=== PATIENT | female | born 1955 | race Hispanic/Latino ===

== ENCOUNTER 2016-11-18 09:39 | Inpatient (IN) | payer MEDICARE, MEDICAID ==
[~2016-11-18] VITALS: Ht 162.6 cm; Wt 81.4 kg
[~2016-11-18 09:39] MED LIST: ANST1T PO; ASPI-973 PO; ATOR20TA65 PO; DIVA500T14 PO; ERGO2000 PO; FENO145T19 PO; INSLIS SUBQ; INSU100V7 SUBQ; METF500T PO; OXYB10TA PO; PALI156D IM; PROP20TA5 PO
[2016-11-18 09:44] VITALS: BP 140/79; PULSE 105; RESP 14; O2SAT 95
--- NOTE | 2016-11-18 09:49 | ED.REPORT ---
HPI-Psychiatric Illness Date of Service Nov 18, 2016 ED Provider: Dr. Payne Pt is a 61 y/o female w/ a hx of CVA, IDDM, HTN, schizo-affective disorder, bipolar, anxiety, depression, presenting to the ED with her mental health counselor for a mental health assessment. Her counselor at [facility], [place] , brought the patient in today with concern that the patient hasn't been keeping up with proper hygiene practices or medical compliance which is apparently typical when she decompensates psychiatrically. She was admitted psychiatrically June 22 for grave disability and decompensation. Her auto service station attendant would like her to be admitted and the patient is amenable to this plan today. She has been experiencing 2-3 episodes of diarrhea for about 3 weeks. She c/o associated lower abdominal pain which is exacerbated by urination onset today, minimal auditory hallucinations. She denies loss of appetite, dysuria, flank pain, SI, HI, visual hallucinations. Nursing Notes Stated Complaint: MENTAL HEALTH ASSESSMENT Chief Complaint: Female Abdominal Pain Nursing Notes Reviewed: Yes Allergies: Coded Allergies: Thiothixene HCl (Verified Allergy, Unknown, painful muscle spasms in jaw , 11/18/16) thiothixene (Verified Allergy, Unknown, UNKNOWN, 11/18/16) Scheduled Anastrozole (Arimidex) 1 Mg Tablet 1 MG PO DAILY Aspirin (Aspirin) 81 Mg Tablet 81 MG PO DAILY Atorvastatin Calcium (Atorvastatin Calcium) 20 Mg Tablet 20 MG PO DAILY Cholecalciferol (Vitamin D3) (Vitamin D3) 50,000 Unit Capsule 50,000 UNIT PO WEEKLY pt takes on tuesdays Divalproex ER (Divalproex ER) 500 Mg Tab.er.24h 1,000 MG PO HS Divalproex ER (Divalproex ER) 500 Mg Tab.er.24h 500 MG PO DAILY Dulaglutide (Trulicity) 0.75 Mg/0.5 Ml Pen.injctr 0.75 MG SQ WEEKLY on wednesdays Fenofibrate Nanocrystallized (Fenofibrate) 145 Mg Tablet 145 MG PO DAILY Insulin Detemir (Levemir U100 Insulin Vial) 100 Unit/1 Ml Vial 80 UNIT SUBQ QAM Metformin (Glucophage) 500 Mg Tablet 1,000 MG PO BIDWM Oxybutynin Chloride ER (Oxybutynin Chloride ER) 10 Mg Tab.er.24 10 MG PO DAILY Paliperidone Palmitate Inj (Invega Sustenna) 156 Mg/1 Ml Syringe 156 MG IM monthly last given on 10/22/16 next dose due 11/19/16 Propranolol HCl (Propranolol HCl) 10 Mg Tablet 10 MG PO BID General Time Seen by MD: 10:01 Chief Complaint Other (decompensation) Hx Obtained From: Patient, Forming Mill Operator Arrived By: Walk-in Onset Occurred: Onset unknown Symptom Duration: Since onset Progression Since Onset: Constant Location: : Abdomen Quality: Painful Radiation: Does not radiate Severity: Current: Mild Severity: Maximum: Mild Recent Healthcare: Previous diagnosis Similar Sx Previous: Yes Risk-Psychiatric Illness Suicide Risk Stratification RF Statements: Risk factors N/A Past Medical History Past Medical History slight tremor/speech alteration R/T use of neuroleptics Hx of pneumonia Schizo-affective disorder, bipolar type, w/ auditory hallucinations Hx of breast cancer in 2012 s/p bilateral mastectomies Hypertension IDDM CVA Anxiety Depression Past Surgical History Double mastectomy Thyroid biopsy, negative Bilateral mastectomy Family History Noncontributory Smoking History Current Every Day Smoker, Heavy Tobacco Smoker Social History Alcohol Use: "Social" Other Social History: Local resident Ambulatory Status Independent Review of Systems Constitutional: Denies: Chills, Fever Respiratory: Denies: Non-productive cough, Shortness of breath Cardiovascular: Denies: Chest pain, Dyspnea on exertion GI: Reports: Abdominal pain, Diarrhea, Denies: Nausea, Vomiting Psychiatric: Reports: Change mental status, Hallucinations, auditory, Denies: Agitation, Confusion, Delusional, Hallucinations, visual, Homicidal ideation, Hostile, Suicidal ideation Complete sys rev & neg: except as marked. Female: Denies: Dysuria, Flank pain Physical Exam Initial Vital Signs Vital Signs (First) Date Time Temp Pulse Resp B/P Pulse Ox O2 Delivery O2 Flow Rate FiO2 11/18/16 09:44 36.3 105 14 140/79 95 Initial VS: Reviewed, Vital signs abnormal Head / Eyes: Atraumatic, Normocephalic, PERRL ENT: Mucous membranes moist, Conjunctiva normal, No scleral icterus Neck: Supple, Full range of motion Extremities: Vascular intact, Neuro intact, No swelling, No tenderness Skin: Warm, Dry, No cyanosis General/Constitutional: Awake, Alert, No acute distress, Cooperative, Not toxic appearing Dried stool on toes Neurologic: Oriented X3, Speech NL, No motor deficits, No sensory deficits, CN II - XII intact Psychiatric: Not suicidal, Not homicidal, No hallucinations Abnormal Mood/Affect: Positive: Flat affect Abdomen: Atraumatic, Soft, Non-tender, No guarding, No rebound, No distention, No palpable mass Interpretation & Diagnostics Lab Results Interpretation Result Diagram: 11/18/16 1005 11/18/16 1005 Test 11/18/16 10:05 11/18/16 11:20 White Blood Count 7.4th/mm3 (3.8-10.1) Red Blood Count 4.85mil/mm3 (3.90-5.20) Hemoglobin 13.4g/dL (12.0-15.6) Hematocrit 40.8% (35.0-46.0) Mean Corpuscular Volume 84.1fL (81-100) Mean Corpuscular Hemoglobin 27.6pg (27.0-35.0) Mean Corpuscular Hemoglobin Concent 32.8% (32.0-37.0) Red Cell Distribution Width 13.9% (12.3-15.4) Platelet Count 230bil/L (150-400) Neutrophils (%) (Auto) 73.0% (40-74) Lymphocytes (%) (Auto) 15.2% (14-46) Monocytes (%) (Auto) 10.4% (4-12) Eosinophils (%) (Auto) 0.5% (0-5) Basophils (%) (Auto) 0.5% (0-3) Sodium Level 139mEq/L (134-144) Potassium Level 4.4mEq/L (3.5-5.2) Chloride Level 99mEq/L (97-108) Carbon Dioxide Level 21mmol/L (18-29) Blood Urea Nitrogen 11mg/dL (8-27) Creatinine 0.55mg/dL (0.57-1.00) Estimat Glomerular Filtration Rate 160mL/min (>59) Glucose Level 391mg/dL (60-99) Calcium Level 9.8mg/dL (8.5-10.1) Total Bilirubin 0.4mg/dL (0.0-1.2) Aspartate Amino Transf (AST/SGOT) 57U/L (0-50) Alanine Aminotransferase (ALT/SGPT) 49U/L (0-32) Alkaline Phosphatase 128U/L (25-165) Total Protein 7.0g/dL (6.4-8.4) Albumin 4.1g/dL (3.4-5.0) Thyroid Stimulating Hormone (TSH) 0.679uIU/mL (0.450-4.500) Hold Garsia Top Tube Received (Received) Valproic Acid (Depakene) Level 7ug/mL (50-125) Urine Color Yellow (YELLOW) Urine Appearance Hazy (CLEAR,HAZY) Urine pH 6.0 (5.0-8.0) Urine Specific [place] 1.010 (1.003-1.035) Urine Protein Negativemg/dL (NEG,TRACE) Urine Glucose (UA) 1000mg/dL (NEGATIVE) Urine Ketones Negativemg/dL (NEGATIVE) Urine Occult Blood Moderate (NEGATIVE) Urine Nitrite Negative (NEGATIVE) Urine Bilirubin Negative (NEGATIVE) Urine Urobilinogen Normalmg/dL (NORMAL) Urine Leukocyte Esterase Small (NEGATIVE) Urine RBC 0-2/hpf (0-2) Urine WBC 11-50/hpf (0-5) Urine Epithelial Cells Moderate/hpf (NONE-MOD) Urine Crystals None seen (NONE SEEN) Urine Bacteria Moderate/hpf (NONE-FEW) Urine Hyaline Casts None/lpf (NONE) Urine Granular Casts None seen (NONE SEEN) Urine Waxy Casts None seen (NONE SEEN) Urine Red Blood Cell Casts None seen (NONE SEEN) Urine White Blood Cell Casts None seen (NONE SEEN) Urine Mucus None seen (None Seen) Urine Trichomonas None seen (NONE SEEN) Urine Yeast None (NONE SEEN) Urinalysis Comment None Urine Culture Reflexed Indicated Lab Results Interpretation: Urine dip: positive leukocytes, nitrites Re-Eval/Medical Decision Med Decision/Clinical Course Patient seems to be a good candidate for voluntary admission. Incidentally she has a UTI. Her abdominal exam and blood tests are otherwise unremarkable. I do not suspect any other life-threatening pathology. She should be continued on Keflex 500 mg 4 times a day. Additionally her glucose was elevated, it seems to be downtrending after receiving subcutaneous insulin. She is medically clear. Source of Hx: Old records, Forming Mill Operator Re-Evaluation/Progress : Time of Eval: 13:19 Re-Evaluation/Progress Note: Pt rechecked. Informed pt of need for admission for psychiatric evaluation. Pt understands and agrees with plan for admission. All questions addressed. Consultation : Consulted With: limehouse worker Call Returned at: 13:19 Retail Client Manager: Will see patient, Agrees with eval, Agrees with plan Note: Arranged admission to mental health center Counseled Regarding: Diagnosis, Lab results Discharge & Departure Impression: Primary Impression: Schizoaffective disorder Schizoaffective disorder type: bipolar Qualified Code: F25.0 - Schizoaffective disorder, bipolar type Additional Impressions: UTI (urinary tract infection) Urinary tract infection type: site unspecified Hematuria presence: without hematuria Qualified Code: N39.0 - Urinary tract infection, site not specified Gravely disabled )( Condition at Discharge: No danger to self, No danger to others, No suicidal ideation, No homicidal ideation, Clear for psych facility Disposition: ADMITTED TO HOSPITAL Discharge Condition All VS Reviewed: Yes Condition: Stable Referrals: Esequiel Neely DO (PCP) Ani Attestation Portions of this note were transcribed by Pramod Novak. I, Dr. Payne, personally performed the history, physical exam and medical decision-making; I reviewed and confirmed the accuracy of the information in the transcribed note. Signed by Ani Jimenez, 11/18/16 - 1015 copies to: Esequiel Neely Timothy S DO Nov 18, 2016 09:49 PRAMOD NOVAK Nov 18, 2016 10:05
[2016-11-18 10:17] LABS: BASOPHILS % (AUTO) 0.5 % (0-3); EOSINOPHILS % (AUTO) 0.5 % (0-5); MONOCYTES % (AUTO) 10.4 % (4-12); Mean Corpuscular Hemoglobin 27.6 pg (27.0-35.0); Mean Corpuscular Volume 84.1 fL (81-100); Platelet Count 230 bil/L (150-400)
[2016-11-18] MEDS ORDERED: Insulin LISPRO 300 Unit/3 mL Inj SUBQ ONE ×2 (11:15→18:30)
[2016-11-18 12:06] LABS: APPEARANCE,URINE HAZY (CLEAR,HAZY); COLOR,URINE YELLOW (YELLOW); OCCULT BLOOD,URINE MODERATE (NEGATIVE); UROBILINOGEN,URINE NORMAL (NORMAL)
[2016-11-18] MEDS ORDERED: PALI156D IM (13:24)
[2016-11-18] MEDS ORDERED: CHOL500050 PO (13:24)
[2016-11-18] MEDS ORDERED: INSU100V4 SUBQ (13:24)
[2016-11-18] MEDS ORDERED: PROP10TA8 PO (13:24)
[2016-11-18] MEDS ORDERED: DULA0.75 SQ (13:24)
[2016-11-18 14:31] VITALS: BP 135/74; PULSE 99; RESP 14; O2SAT 96
[2016-11-18] MEDS ORDERED: metFORMIN ER 500 mg ER24 Tablet PO ONE (17:00)
--- NOTE | 2016-11-18 18:34 | NUR ---
[id number]. nurs. Admit note. 61 y.o. voluntary female pt admitted to [facility] at 1422. Pt brought to [facility] ED after pt's CM Sonja at [facility] concerned re. pt's self care at home. Family member, sister usually acts as pt's healthcare market consultant in [place] and has been unable to provide supervision of pt taking meds due to illness. ( Pt has [facility] team providing meds in AM) Pt has been refusing to open door to substitute family member, in [place] and c/o diarrhea after meals in recent weeks and not adequately attending to hygiene needs. Pt reports poor sleep pattern of 1 hour blocks when tired day and night. Pt reports BS's poorly controlled and dairy and vege meals causing diarrhea over last few weeks. Depakote level at less than therapeutic level. Pt seeking help and familiar with unit. Pt co operative with admit process, and asking to get needs met. Pt's BS 365 at dinner time pt given metformin and Dr Silva ordering coverage of 10 units of Lispro this [place].
[2016-11-18] MEDS ORDERED: Divalproex (QD) 500 mg ER24 Tablet PO ONE (21:00)
--- NOTE | 2016-11-18 21:59 | NUR ---
434 BLOOD GLUCOSE Pt's FSBS taken at 19:56 was 434. Per pt. she stated: "well I did just have coffee". Pt. given 10 units of Lispro as ordered and was told we would re-evaluate her blood sugar before HS. Diabetic education provided and pt. was discouraged from eating a non-diabetic snack before her HS FSBS. Hospitalist was also paged. However, at 21:45 when this hand sign writer went to take her FSBS she admitted she had "just had 2 hot chocolates so it'll probably be high..." Will hold reassessment of blood glucose at this time and pass on to oncoming RN.
--- NOTE | 2016-11-19 03:04 | NUR ---
Observations 1900 to 0700 Pt was in and out of her room for most of the night. Pt was polite and cooperative. Pt did attend wrap up group. Pt watched a little of the movie that was playing and then went to her room. Pt first appeared asleep at 22:30 and was observed every 15 minutes through the night as directed.
--- NOTE | 2016-11-19 05:00 | NUR ---
Nursing Noc Pt A+O pleasant and cooperative taking medications as prescribed. Blood sugars appear to be returning to normal since admission. 0430 blood sugar down to 298 from 306 at HS. Continuing to monitor mood behavior, emotional state and safety. Q15 minute visual checks throughout the shift.
[2016-11-19 09:15] VITALS: BP 131/76; PULSE 110; RESP 16
[2016-11-19] MEDS ORDERED: Tolterodine ER 4 mg ER24 Capsule PO SCH (10:45)
[2016-11-19] MEDS ORDERED: Benzocaine-Menthol Lozenge 2/Pkg PO PRN (10:50)
[2016-11-19] MEDS ORDERED: Paliperidone Palmitate 156 mg/mL Inj (NC) IM SCH (11:10)
[2016-11-19] MEDS: Divalproex (QD) 500 mg ER24 Tablet PO SCH ×2 (11:58→20:30)
[2016-11-19] MEDS: Tolterodine ER 4 mg ER24 Capsule PO SCH (12:17)
[2016-11-19] MEDS: Insulin GLARgine 100 Unit/mL Syringe SUBQ SCH (12:20)
--- NOTE | 2016-11-19 12:35 | HP ---
[address] [address] HISTORY AND PHYSICAL PATIENT: QUINTEN GUEVARA : 1955 MR#: [id number] ADMIT: 11/18/2016 JOB ID: [id number] DATE: 11/19/2016 IDENTIFICATION: Patient is a 61-year-old female currently living independently for the past 10 years. She is on Social Security and follows with [facility]. She lives in [place]. REASON FOR ADMISSION: Client brought to the ER by her mental health counselor due to concern of grave disability with poor hygiene, not taking her psychiatric medications, and beginning to have increasing psychotic symptoms of hallucinations. Her thinking is becoming poor, and she was confused about her diabetic management. HISTORY OF PRESENT ILLNESS: The patient is a 61-year-old white female with a long history of schizoaffective disorder who presented to the ER after a gradual decline and failure to take care of herself. Her Depakote level was less than 10. Hygiene was poor, and she was beginning to have auditory hallucinations. Her blood glucose was nearly 400, as she does not appear to be attending to her diabetic care. She tends to smoke over a pack of cigarettes per day. She was willing to come in on a voluntary basis at this time. She is experiencing some auditory hallucinations but reported that since starting Invega, her psychotic symptoms have been significantly improved. Client's main issue is medication noncompliance and poor care of her diabetes. The condition is chronic, and at present it is of a moderate intensity manifesting with symptoms of poor self-care, poor thought organization, and beginning to have auditory hallucinations. All the above is made worse by social isolation. It appears one of the stressors is that her sister, who is her JUSTIN worker, was sick and sent another person for a week for p.m. meds. It appears that this did not work out well. At present, she is showing no signs of emotional liability, but marked cognitive deficits and significant impairment in coping, insight and judgment. REVIEW OF SYSTEMS: Psychiatric review of systems was negative for lyssa, anxiety, trauma, or substance abuse. Physical review of systems was positive for GI complaining of diarrhea for the past three days. MEDICATIONS: 1. Propranolol 10 b.i.d. 2. Invega 156 mg IM every month, last dose October 22, 2016, next dose due November 19, 2016. 3. Oxybutynin ER 10 mg daily. 4. Metformin 1000 mg twice a day. 5. Insulin detemir 80 units subcu q.a.m. 6. Fenofibrate 140 mg daily. 7. Trulicity 0.75 mg per 0.5 mL pen, 0.75 mg subcu weekly on Wednesdays. 8. Depakote 500 mg in the morning, 1000 mg h.s. 9. Atorvastatin 20 mg daily. 10. Aspirin 81 daily. 11. Anastrazole 1 mg daily. ALLERGIES: NAVANE. ILLNESSES: CVA, insulin-dependent diabetes, breast cancer 2012, hypertension. FAMILY MEDICAL HISTORY: Noncontributory. PAST PSYCHIATRIC HISTORY: Schizoaffective disorder, multiple inpatient hospitalizations for grave disability and decompensation, last in the [facility] May to June of 2016. She is followed up by [facility]. Her imaging engineer is Sonja. PSYCHOSOCIAL HISTORY: Client states she was born in [place] and raised in [place] for the first two years before moving to [place]. She denies history of trauma. She reports that she is a heavy smoker one pack per day but denies other recreational drugs. She denied suicidal ideation, plan, or intent. RELATIONSHIP HISTORY: and twice. Three children. [employer]. Legal history none. PHYSICAL EXAM: Vital signs: 131/76, pulse 110, respirations 16, afebrile. Physical exam reviewed from ER and essentially normal. LABORATORY DATA: CBC normal. UA positive for leukocytes and nitrates. Depakote level 7. Liver, electrolytes, thyroid normal. Blood glucose 318. MENTAL STATUS EXAM: Client disheveled, malodorous with good eye contact. Behavior lethargic and withdrawn. Attitude aloof and detached. Speech with monotone one-word responses. Mood: "I'm fine." Affect flat, restricted. No lability. Thought process: Client had a difficult time relating a coherent history. Mild thought disorganization and mild distractibility. Her thought process is concrete but otherwise logical. Thought content significant for poverty of thought. She has mild auditory hallucinations. Client alert and oriented to person, place, and date. Immediate, short, and long-term memory mildly impaired. Attention and concentration moderately impaired. Insight and judgment poor. Impulse control highly contained. Reality testing mildly impaired. Competence to handle current stressors is currently being overwhelmed. IMPRESSION: Patient is a 61-year-old white female who has been struggling for decades with schizoaffective disorder. She has been stabilized since being on our unit in May on Invega and Depakote. She last got her Invega shot on October 22, 2016, but from the laboratories, she is not taking her Depakote. The combination of an antipsychotic and a mood stabilizer has helped her maintain her ability to function in the past. For unclear reasons, she has been off this medication for an unclear amount of time and has shown gradual and steady worsening of ability to attend to activities of daily living and to participate in medical care. Her blood glucose was a nearly 400, and do not believe her current regimen as able to contain her lack of an ADA diet lifestyle. DIAGNOSIS: AXIS I: Schizoaffective disorder. AXIS II: None. AXIS III: 1. Urinary tract infection. 2. History of cerebrovascular accident. 3. Insulin dependent diabetes. 4. Breast carcinoma. 5. Hypertension. PLAN: Recommend client be admitted to our unit and be provided with a high degree of safety through the structure and active adult engagement she will receive here. Will have her participate in one-to-one unit and group activities focused on improving reality-based thinking, help her be able to attend her activities of daily living, and improve coping skills. I have asked for an internal medicine consult to help with recommendations for insulin management. Will continue her on Keflex 500 mg four times a day for five days for urinary tract infection. We will restart Depakote at 500 twice a day to see how she tolerates. Will check Depakote level in five days. Will give her dose of Invega 156 mg today with a plan to continue Invega IM in 30 days. Client is a voluntary patient. Anticipate a five day stay.
[2016-11-19] MEDS: Insulin Human REGular 300 Unit/3 mL Inj SUBQ SCH ×4 (13:00→23:35)
[2016-11-19] MEDS ORDERED: PALIPERIDONE PALMITATE IM SCH (14:40)
--- NOTE | 2016-11-19 17:48 | PCM.CHPMED ---
Subjective Date of Service: Nov 19, 2016 Provider requesting consult: Alexandre Silva MD Primary Physician: Admitting Physician: Alexandre Silva MD Primary Care Physician: Esequiel Neely DO Attending Physician: Alexandre Silva MD Chief Complaint: Chief Complaint: elevated blood glucose, diarrhea History of Present Illness: 60-year-old female with a past medical history of uncontrolled diabetes, schizoaffective disorder presenting and admitted to inpatient psychiatric unit due report of gradual decline and failure to take care of herself. Hospitalist service has been consulted for further assistance with managing her her diabetes and elevated blood glucose. Currently patient's main complaint is diarrhea which she describes as intermittent 3-4 loose stools daily for the past few weeks. She also admits to having some auditory hallucinations and otherwise denies any other issues/ complaints. Review of Systems: negative except as noted above Constitutional: Denies: Chills, Fever, Malaise Head: Normal Eyes: Denies: Vision Changes ENT: Denies: Nasal Congestion, Throat Pain Neck: Denies: Pain Cardiovascular: Denies: Chest Pain, Palpitations Respiratory: Denies: Cough, Shortness of Breath Gastrointestinal: Reports: Diarrhea, Denies: Abdominal Pain, Black tarry stools, Blood in stool (red), Nausea, Vomiting Genitourinary: Denies: Dysuria, Hematuria Musculoskeletal: Denies: Back Pain, Neck Pain Neurological: Denies: Dizziness, Double Vision, Numbness, Tremors Psychologic: Reports: Other (admits to some auditory hallucinations (hearing voices)), Denies: Suicidal Thoughts Endocrine: Denies: Excessive Thirst, Weight Gain Lymphatic: Denies: Adenopathy PMH Past Medical History 1. Bipolar, 2. CVA history, 3. schizoaffective disorder/possible schizophrenia, 4. breast cancer, 5. hyperlipidemia, 6. uncontrolled diabetes, 7. hypertension 8. poor medication compliance Bedside Blood Glucose: 335 Surgical History Thyroid biopsy, bilateral mastectomy Home Medications Anastrozole 1 Mg Tablet (Arimidex) 1 Mg PO DAILY #30 TABLET Cardiovascular Drugs Atorvastatin Calcium 20 Mg Tablet 20 Mg PO DAILY Fenofibrate Nanocrystallized 145 Mg Tablet (Fenofibrate) 145 Mg PO DAILY Propranolol HCl 10 Mg Tablet 10 Mg PO BID Central Nervous System Agents Aspirin 81 Mg Tablet 81 Mg PO DAILY Divalproex ER 500 Mg Tab.Er.24h 1,000 Mg PO HS #30 Divalproex ER 500 Mg Tab.Er.24h 500 Mg PO DAILY #30 Paliperidone Palmitate Inj 156 Mg/1 Ml Syringe (Invega Sustenna) 156 Mg IM monthly last given on 10/22/16 next dose due 11/19/16 Hormones And Synthetic Substit Dulaglutide 0.75 Mg/0.5 Ml Pen.Injctr (Trulicity) 0.75 Mg SQ WEEKLY on wednesdays Insulin Detemir 100 Unit/1 Ml Vial (Levemir U100 Insulin Vial) 80 Unit SUBQ QAM Metformin 500 Mg Tablet (Glucophage) 1,000 Mg PO BIDWM #60 TABLET Smooth Muscle Relaxants Oxybutynin Chloride ER 10 Mg Tab.Er.24 10 Mg PO DAILY #30 Allergies: Coded Allergies: Thiothixene HCl (Verified Allergy, Unknown, painful muscle spasms in jaw , 11/18/16) thiothixene (Verified Allergy, Unknown, UNKNOWN, 11/18/16) Family History Family History Mother at age 58 of lung cancer, father in his 70s with an accidental overdose of narcotics Social History Hx Alcohol Use: NoHx Substance Use: YesHx Tobacco Use: Yes Smoking Status: Current Every Day Smoker (1ppd) Exam Vital Signs Vital Sign - Last Date Time Temp Pulse Resp B/P Pulse Ox O2 Delivery O2 Flow Rate FiO2 11/19/16 09:15 36.9 110 16 131/76 11/18/16 14:31 96 Room Air Intake and Output 11/18/16 11/18/16 11/19/16 Cumulative From/Thru 15:00 23:00 07:00 11/18/16 09:44 - 11/18/16 14:32 Intake Total 200 ml 200 ml Balance 200 ml 200 ml Intake Oral 200 ml 200 ml General: Alert, Oriented X3, Cooperative, No Acute Distress Head: Normal Eyes: PERRLA, EOMI, Scleral Anicteric Nose: Mucous Membr Moist/[place] Patent Mouth: Mucous Membr Moist/[place] Patent Neck: Supple Chest & Lungs: Chest Wall Normal, Clear to auscultation & percussion Cardiovascular: Regular Rate/Rhythm Pulses: NL carotid, radial, femoral, DP, PT Abdomen: Non-tender, Non-distended, Normoactive bowel tones, Soft Musculoskeletal: Normal Range of Motion Extremities: No cyanosis/clubbing/edma bilat Neurological: Grossly Neurologically Intact, Cranial Nerves 2-12 Intact, Normal Speech Lab and Diagnostics Result Diagram: 11/18/16 1005 11/18/16 1005 Assessment & Plan Assessment 60-year-old female with a past medical history of uncontrolled diabetes, schizoaffective disorder presenting and admitted to inpatient psychiatric unit due report of gradual decline and failure to take care of herself. Hospitalist service has been consulted for further assistance with managing her her diabetes and elevated blood glucose. # Psychiatric disorder. Acute on chronic. present on admission. ongoing -Defer to primary psychiatry team for further management # Type II diabetes. Chronic. poorly controlled. present on admission - She has a history of difficult to control glucose levels (partially due to diet indiscretion) - for now continue with home dose insulin (Lantus 80 units) and will likely need to titrate further up - start high dose insulin sliding scale - c/w home dose Metformin - diabetic diet - f/u HgA1C # Reported diarrhea, somewhat chronic and ongoing. present on admission per pt' s report. - check stool PCR and if negative will treat with Lomotil prn # ? UTI based on UA on admission - urine culture showing evidence of contamination - recheck UA # History of Hypertension: - c/w home dose Propranolol # Hyperlipidemia: - c/w fenofibrate and atorvastatin # History of breast cancer - c/w Arimidex Thank you for allowing the hospitalist service to participate in the care of this patient, we will continue to follow her closely with you. Problems: GI Prophylaxis: Not indicated VTE Prophylaxis: Other (pt ambulating) Resuscitation Status: Limited Interventions (pt wishes to be DNI but OK to resuscitate. I discussed and verified this with the patient) Rashad Alba Nov 19, 2016 17:48
--- NOTE | 2016-11-19 18:05 | NUR ---
Observations 0900 to 2130 Pt affect and mood was isolative, flat and preoccupied. Pt eye contact and speech was ok. Pt was in her room most of the shift. Pt ate about 75% of her meals. Pt ate snacks. Pt maintained behavior throughout the shift. Pt was polite and cooperative. Pt did not attend group and unit activities. Pt attended community and set daily goals for herself. Pt was minimally social with staff and peers. Pt was observed every 15 minutes throughout the shift as ordered.
--- NOTE | 2016-11-19 19:18 | NUR ---
[id number]. nurs. S/O. "I hope I don't have to be interrupted more times" Pt reporting wanting to rest and mostly in her room brief periods spent out enjoying meals. Pt c/o of incontinence and supplied with attends and pads changes of underwear and noted to have loose stools and be incontinent in bed. Pt's BSs remained elevated in 300's and Dr Donald monitoring and pt given coverage per sliding scale and also received 80 units of lantus. Pt with mostly flat affect, did occasionally smile and spend some time observing peers not seeking interacting freq. returning to bed to rest. P:CNCP
--- NOTE | 2016-11-20 05:16 | NUR ---
Nursing notes: specimen processor/ diabetes/ diarrhea/sleep Patient resting quietly in bed at change of shift. Patient received 7 units regular insulin for HS bedside blood sugar of 284. Patient noted to be incontinent of several small drips of liquid brown stool on floor between bed and bathroom. Assisted patient with hygiene/ linens changed. Patient sleeping until 0330, then again up to bathroom with episode of diarrhea. Patient placed stool specimen for staff in bathroom and stool specimen sent to lab. Patient also urinated in another specimen container,but appeared contaminated with fecal matter,and was disposed. Patient assisted with shower, clean scrubs, adult depends, and linens changed again. Patient states her abdomen "only hurts when I cough". Several tissues scattered about bed and night stand. Patient is polite and thankful for assistance, then returned back to bed. Addendum: 11/20/16 at 0639 by NORMAN TUCKER RN Addendum. Patient awakened for am Keflex medication. No further episodes of diarrhea. Patient c/o of stuffy nose and "cold symptoms" Patient reports frequent productive cough with clear mucus, and sore throat. VS checked.BP 113/63 Temp= 36.5 temporal Pulse= 107 Respirations = 16 and breathing thru mouth. O2 sat 94%. Bedside blood sugar = 256. Patient only noted to have water at bedside. Provider will be notified of above results this am.
[2016-11-20 06:00] VITALS: BP 113/63; PULSE 107; RESP 16
[2016-11-20] MEDS: Insulin Human REGular 300 Unit/3 mL Inj SUBQ SCH ×4 (08:18→22:05)
[2016-11-20] MEDS: Divalproex (QD) 500 mg ER24 Tablet PO SCH ×2 (08:20→20:30)
[2016-11-20] MEDS: Tolterodine ER 4 mg ER24 Capsule PO SCH (08:20)
[2016-11-20] MEDS: Insulin GLARgine 100 Unit/mL Syringe SUBQ SCH (08:22)
[2016-11-20 10:35] VITALS: BP 117/72; PULSE 127; RESP 16
--- NOTE | 2016-11-20 12:09 | PCM.PNPSY ---
Subjective Date of Service Nov 20, 2016 Subjective I spent 30 minutes both reviewing treatment plan with clinical team, interviewing the patient and providing supportive/educational psychotherapy. I spent more than 50% of the time counseling the patient the patient could only tolerate a brief interaction. I reviewed the treatment plan with the patient and discussed options available including the potential risks, benefits and side effects. Elmira reports continued struggle with extreme fatigue, poor thought organization and a lack of motivation. Staff reports that she has been isolating in her room and not participating well in one-to-one unit and group activities. She slept 8 hours and complained of continued difficulty with depression symptoms review. She denies suicidal ideation however. She denies medication side effects. Patient was able to identify her medications and what they were used to treat. Current Medications Current Medications Anastrozole 1 mg DAILY PO Last administered on 11/20/16 08:19; Admin Dose 1 MG ; Start 11/19/16 at 10:45 Aspirin 81 mg DAILY PO Last administered on 11/20/16 08:20; Admin Dose 81 MG; Start 11/19/16 at 10:45 Atorvastatin Calcium 20 mg DAILY PO Last administered on 11/19/16 17:40; Admin Dose 20 MG; Start 11/19/16 at 10:45 Cephalexin 500 mg QID PO Last administered on 11/20/16 05:56; Admin Dose 500 MG ; Start 11/19/16 at 11:30; Stop 11/24/16 at 11:31 Divalproex Sodium 500 mg BID PO Last administered on 11/20/16 08:20; Admin Dose 500 MG; Start 11/19/16 at 10:45 Divalproex Sodium 1,000 mg HS PO Last administered on 11/19/16 20:57; Admin Dose 1,000 MG; Start 11/18/16 at 21:00 Fenofibrate 145 mg DAILY PO Last administered on 11/20/16 08:21; Admin Dose 145 MG; Start 11/19/16 at 10:45 Insulin Glargine 80 unit MORNING SUBQ Last administered on 11/20/16 08:22; Admin Dose 80 UNIT; Start 11/19/16 at 10:45 Insulin Human Lispro 10 unit ONCE ONCE SUBQ Last administered on 11/18/16 20: 01; Admin Dose 10 UNIT; Start 11/18/16 at 18:30; Stop 11/18/16 at 18:31; Status DC Insulin Human Regular * High Dose Insu... ACHS SUBQ Last administered on 08:18; Admin Dose 4 UNIT; Start 11/19/16 at 22:00 Insulin Human Regular * Medium Dose Insu... ACHS SUBQ Last administered on 13:00; Admin Dose 8 UNIT; Start 11/19/16 at 17:00; Stop 11/19/16 at 17:31; Status DC Metformin HCl 1,000 mg 17 PO Last administered on 11/18/16 18:18; Admin Dose 1, 000 MG; Start 11/18/16 at 17:45; Stop 11/19/16 at 11:16; Status DC Metformin HCl 1,000 mg BIDWM PO Last administered on 11/20/16 08:19; Admin Dose 1,000 MG; Start 11/19/16 at 17:30 Propranolol HCl 10 mg BID PO Last administered on 11/20/16 08:21; Admin Dose 10 MG; Start 11/19/16 at 10:45 Propranolol HCl 10 mg HS ONCE PO Last administered on 11/18/16 21:47; Admin Dose 10 MG; Start 11/18/16 at 21:00; Stop 11/18/16 at 21:01; Status DC Tolterodine Tartrate 4 mg DAILY PO Last administered on 11/20/16 08:20; Admin Dose 4 MG; Start 11/20/16 at 08:30 Mental Status Exam Vital Signs Vital Signs Date Time Temp Pulse Resp B/P Pulse Ox O2 Delivery O2 Flow Rate FiO2 11/20/16 06:00 36.5 107 16 113/63 Appearance: Disheveled, Malodorous Attitude: Cooperative Behavior: Other (lethargic) Affect: Restricted, Blunted, Flat Mood: Dysthymic, Depressed Thought Process/Associations: Goal Directed Speech Production: Paucity Speech Rate: Lags/Latency Speech Articulation: Normal Thought Content: Negativistic Danger to Self/Suicidal Ideati: None Danger to Others: None Consciousness: Somnolent, Lethargic Orientation: Person, Place, Date, Situation Memory: Grossly Intact Estimate Intellectual Function: Average Attention/Concentration & Cogn: Impaired Insight: Limited Judgement: Limited Result Diagram: 11/18/16 1005 11/18/16 1005 Mental Health Plan Patient is a 61-year-old white female who has been struggling for decades with schizoaffective disorder. She has been stabilized since being on our unit in May on Invega and Depakote. She last got her Invega shot on October 22, 2016, but from the laboratories, she is not taking her Depakote. The combination of an antipsychotic and a mood stabilizer has helped her maintain her ability to function in the past. For unclear reasons, she has been off this medication for an unclear amount of time and has shown gradual and steady worsening of ability to attend to activities of daily living and to participate in medical care. Her blood glucose was a nearly 400, and do not believe her current regimen as able to contain her lack of an ADA diet lifestyle. I appreciate consult from internal medicine for diabetic care recommendations. Elmira is needing encouragement to attend to activities of daily living but Seems to be making slow but positive progress here on the unit. [place] DIAGNOSIS: AXIS I: Schizoaffective disorder. AXIS II: None. AXIS III: 1. Urinary tract infection. 2. History of cerebrovascular accident. 3. Insulin dependent diabetes. 4. Breast carcinoma. 5. Hypertension. AXIS IV: Moderate AXIS V: GAF 35 Medications Keflex 500 mg four times a day for five days for urinary tract infection. Insulin Human Lispro Insulin Human Regular Metformin HCl 1,000 mg BIDWM Propranolol HCl 10 mg BID Treatments Patient is being provided with a high degree of safety through the structure and active adult engagement. We will focus on developing improved coping skills and identifying stressors that may have led to current episode. We will attempt to: Integrate into therapeutic groups, milieu and individual therapy. Maintain in a closely monitored and structured unit Obtain collateral data to assist in treatment planning Assess degree of lability of affect and impulse control Complete safety plan Decrease frequency of relapse and need for re-hospitalization Denies thoughts of harm to self and/or others Establish a consistent sleep pattern Medication effective in stabilization of mood and/or thought process Reduce the risk of imminent harm to self and/or others by providing a safe environment Tolerates medication without side effects Patient will be on the following psychiatric medications: Depakote at 500 twice a day , Will check Depakote level in five days. Invega 156 mg IM given 11/19/16 with a plan to continue Invega IM in 30 days Address patient's legal status Voluntary Alexandre Silva MD Nov 20, 2016 12:09
[2016-11-20] MEDS ORDERED: PALIPERIDONE PALMITATE 156 MG IM ONE (12:53)
--- NOTE | 2016-11-20 15:07 | NUR ---
Nursing: Day shift: S/O: Elmira acts familiar and comfortable on this unit. She is out for meals, cooperative with BG testing, and showered this afternoon. She has been complaining of continuing loose bowel movements. BG elevated at 353 at pre-lunch. Sleeping when she is in her room between meals. A: No apparent distress today. P: Continue to encourage Elmira to monitor food intake r/t BG. Observe for sleep pattern tonight. Addendum: 11/20/16 at 1550 by CAITLIN PENA RN Amended: Links added. Addendum: 11/20/16 at 1910 by CAITLIN PENA RN Pt received Invega 156 mg IM today.
--- NOTE | 2016-11-20 17:46 | NUR ---
[facility] Day Shift Pt maintained behavioral control throughout the shift. Pt affect appears mostly flat, somewhat brighter when engaged with staff or peers. Pt is pleasant and appropriate with staff and peers when active on the unit. Pt spends most of the shift resting in her room or sitting quietly in the dining room. Pt attended community meeting in the AM. Pt attended all meals and ate approx 100% of all meals.
--- NOTE | 2016-11-20 17:51 | PCM.PNMED ---
Subjective Date of Service Nov 20, 2016 Subjective no new issues/complaints reported Exam Vital Signs Vital Sign - Last Date Time Temp Pulse Resp B/P Pulse Ox O2 Delivery O2 Flow Rate FiO2 11/20/16 10:35 36.6 127 16 117/72 11/18/16 14:31 96 Room Air Intake and Output 11/19/16 11/19/16 11/20/16 Cumulative From/Thru 15:00 23:00 07:00 11/18/16 09:44 - 11/18/16 14:32 Intake Total 200 ml Balance 200 ml Intake Oral 200 ml Exam General: Alert, Cooperative, No Acute Distress Head: Normal Eyes: Scleral Anicteric Nose: Mucous Membr Moist/[place] Mouth: Mucous Membr Moist/[place] Neck: Supple Chest & Lungs: Chest Wall Normal, Clear to auscultation bilat Cardiovascular: Regular Rate/Rhythm Abdomen: Non-tender, Non-distended, Normoactive bowel tones, Soft Extremities: No cyanosis/clubbing/edema bilat Neurological: Grossly Neurologically Intact IVs and Medications Medications Reviewed: Medications were reviewed in detail Lab and Diagnostics Result Diagram: 11/18/16 1005 11/18/16 1005 Assessment & Plan 60-year-old female with a past medical history of uncontrolled diabetes, schizoaffective disorder presenting and admitted to inpatient psychiatric unit due report of gradual decline and failure to take care of herself. Hospitalist service has been consulted for further assistance with managing her her diabetes and elevated blood glucose. # Psychiatric disorder. Acute on chronic. present on admission. ongoing -Defer to primary psychiatry team for further management # Type II diabetes. Chronic. poorly controlled. present on admission - She has a history of difficult to control glucose levels (partially due to diet indiscretion) - continue with home dose insulin (Lantus 80 units) and will likely titrate further up if continue to remain elevated by tomorrow - c/w high dose insulin sliding scale - c/w home dose Metformin - diabetic diet - HgA1C 15.1 # Reported diarrhea, somewhat chronic and ongoing. present on admission - stool PCR negative - Lomotil prn # ? UTI based on UA on admission - urine culture showing evidence of contamination - recheck UA # History of Hypertension: - c/w home dose Propranolol # Hyperlipidemia: - c/w fenofibrate and atorvastatin # History of breast cancer - c/w Arimidex Dispo: per primary psych team GI Prophylaxis: Not indicated VTE Prophylaxis: Other (pt ambulating) Resuscitation Status: Limited Interventions (pt wishes to be DNI but OK to resuscitate. I discussed and verified this with the patient) Rashad Alba Nov 20, 2016 17:51
[2016-11-20] MEDS: DiphenOXYlate-Atropine 2.5 mg-0.025 mg Tablet PO PRN (21:22)
--- NOTE | 2016-11-20 22:16 | NUR ---
NURSING NOTE 16:30-2300 Mood: "good?" Affect: flat, some delayed responses Behavior: resting on and off this shift, was out in the DR sitting w/some peers but not interacting much. HS FSBS was 263. She continues to have loose stool and now has a commode as well as pads and Attends. Lomotil PRN given at HS. Med compliant. Thought processes: somewhat concrete in her responses, she denies SI/HI. No hallucinations this shift.
--- NOTE | 2016-11-21 06:02 | NUR ---
Nursing Note shift commander Pt slept through the night except when she got up briefly to get some water. Pt went back to sleep without incident. Monitoring ongoing.
[2016-11-21] MEDS: Insulin Human REGular 300 Unit/3 mL Inj SUBQ SCH ×4 (07:58→20:40)
[2016-11-21] MEDS: Tolterodine ER 4 mg ER24 Capsule PO SCH (09:12)
[2016-11-21] MEDS: Divalproex (QD) 500 mg ER24 Tablet PO SCH ×2 (09:12→20:33)
[2016-11-21] MEDS: Insulin GLARgine 100 Unit/mL Syringe SUBQ SCH (09:27)
[2016-11-21 13:12] VITALS: BP 109/65; PULSE 93; RESP 20
--- NOTE | 2016-11-21 14:11 | PCM.PNPSY ---
Subjective Date of Service Nov 21, 2016 Subjective I spent 30 minutes both reviewing treatment plan with clinical team, interviewing the patient and providing supportive/educational psychotherapy. I spent more than 50% of the time counseling the patient . I reviewed the treatment plan with the patient and discussed options available including the potential risks, benefits and side effects. Elmira reports continued struggle with extreme fatigue, poor thought organization and a lack of motivation. She states she feels approximately 30% improved from admission. Staff reports that she has been isolating in her room and not participating well in one-to-one unit and group activities. She slept 8.5 hours and complained of continued difficulty with depression symptoms review. She denies suicidal ideation however. She denies medication side effects. Patient was able to identify her medications and what they were used to treat. Current Medications Current Medications Atorvastatin Calcium 20 mg HS PO Last administered on 11/20/16 20:33; Admin Dose 20 MG; Start 11/20/16 at 21:00 Diphenoxylate HCl/ Atropine 1 tablet Q6H PRN PO Last administered on 11/20/16 21:22; Admin Dose 1 TABLET; Start 11/20/16 at 11:30 Insulin Human Regular * High Dose Insu... ACHS SUBQ Last administered on 11:55; Admin Dose 4 UNIT; Start 11/19/16 at 22:00 Insulin Human Regular * Medium Dose Insu... ACHS SUBQ Last administered on 13:00; Admin Dose 8 UNIT; Start 11/19/16 at 17:00; Stop 11/19/16 at 17:31; Status DC Metformin HCl 1,000 mg BIDWM PO Last administered on 11/21/16 09:10; Admin Dose 1,000 MG; Start 11/19/16 at 17:30 Patient Own Medication 1 OT ONCE IM Last administered on 11/20/16 16:55; Admin Dose 1; Start 11/20/16 at 12:53; Stop 11/20/16 at 12:54; Status DC Tolterodine Tartrate 4 mg DAILY PO Last administered on 11/21/16 09:12; Admin Dose 4 MG; Start 11/20/16 at 08:30 Mental Status Exam Vital Signs Vital Signs Date Time Temp Pulse Resp B/P Pulse Ox O2 Delivery O2 Flow Rate FiO2 11/21/16 13:12 36.8 93 20 109/65 Appearance: Disheveled, Malodorous Attitude: Cooperative Behavior: Other (lethargic) Affect: Restricted, Blunted, Flat Mood: Dysthymic, Depressed Thought Process/Associations: Goal Directed Speech Production: Paucity Speech Rate: Lags/Latency Speech Articulation: Normal Thought Content: Negativistic Danger to Self/Suicidal Ideati: None Danger to Others: None Consciousness: Somnolent, Lethargic Orientation: Person, Place, Date, Situation Memory: Grossly Intact Estimate Intellectual Function: Average Attention/Concentration & Cogn: Impaired Insight: Limited Judgement: Limited Result Diagram: 11/18/16 1005 11/18/16 1005 Mental Health Plan Patient is a 61-year-old white female who has been struggling for decades with schizoaffective disorder. She has been stabilized since being on our unit in May on Invega and Depakote. She last got her Invega shot on October 22, 2016, but from the laboratories, she is not taking her Depakote. The combination of an antipsychotic and a mood stabilizer has helped her maintain her ability to function in the past. For unclear reasons, she has been off this medication for an unclear amount of time and has shown gradual and steady worsening of ability to attend to activities of daily living and to participate in medical care. Her blood glucose was a nearly 400, and do not believe her current regimen as able to contain her lack of an ADA diet lifestyle. I appreciate consult from internal medicine for diabetic care recommendations. Elmira is needing encouragement to attend to activities of daily living but Seems to be making slow but positive progress here on the unit. [place] DIAGNOSIS: AXIS I: Schizoaffective disorder. AXIS II: None. AXIS III: 1. Urinary tract infection. 2. History of cerebrovascular accident. 3. Insulin dependent diabetes. 4. Breast carcinoma. 5. Hypertension. AXIS IV: Moderate AXIS V: GAF 35 Medications Keflex 500 mg four times a day for five days for urinary tract infection. Insulin Human Lispro Insulin Human Regular Metformin HCl 1,000 mg BIDWM Propranolol HCl 10 mg BID Treatments Patient is being provided with a high degree of safety through the structure and active adult engagement. We will focus on developing improved coping skills and identifying stressors that may have led to current episode. We will attempt to: Integrate into therapeutic groups, milieu and individual therapy. Maintain in a closely monitored and structured unit Obtain collateral data to assist in treatment planning Assess degree of lability of affect and impulse control Complete safety plan Decrease frequency of relapse and need for re-hospitalization Denies thoughts of harm to self and/or others Establish a consistent sleep pattern Medication effective in stabilization of mood and/or thought process Reduce the risk of imminent harm to self and/or others by providing a safe environment Tolerates medication without side effects Patient will be on the following psychiatric medications: Depakote at 500 twice a day , Will check Depakote level in five days. Invega 156 mg IM given 11/19/16 with a plan to continue Invega IM in 30 days Address patient's legal status Voluntary Alexandre Silva MD Nov 21, 2016 14:11
--- NOTE | 2016-11-21 14:56 | NUR ---
[employer] c.m. S.:"I'm doing much better today. My thinking is clear." O.: met with pt. in her room per her request. She slept "good" last night. She denied SI/HI, denied VH, denied depression or anxiety. She said that AH were "on and off and they are mild so they don't bother me anymore. I can bloke them now." She was glad that her thinking was improved. She was in and out of her room. She is eating. She was still wearing her night shirt at lunch time and her hair would benefit from a shower. A.: pt. is cooperative, pleasant, has brighter affect, looks disheveled and unkempt. P.: monitor behavior, encourage pt. to take a shower, encourage pt. to participate in the unit activities; follow care plan.
--- NOTE | 2016-11-21 15:31 | PCM.PNMED ---
Subjective Date of Service Nov 21, 2016 Subjective no new issues/complaints reported Exam Vital Signs Vital Sign - Last Date Time Temp Pulse Resp B/P Pulse Ox O2 Delivery O2 Flow Rate FiO2 11/21/16 13:12 36.8 93 20 109/65 11/18/16 14:31 96 Room Air Intake and Output 11/20/16 11/20/16 11/21/16 Cumulative From/Thru 15:00 23:00 07:00 11/18/16 09:44 - 11/18/16 14:32 Intake Total 200 ml Balance 200 ml Intake Oral 200 ml Exam General: Alert, Cooperative, No Acute Distress Head: Normal Eyes: Scleral Anicteric Nose: Mucous Membr Moist/[place] Mouth: Mucous Membr Moist/[place] Neck: Supple Chest & Lungs: Chest Wall Normal, Clear to auscultation bilat Abdomen: Non-tender, Non-distended, Normoactive bowel tones, Soft Neurological: Grossly Neurologically Intact IVs and Medications Medications Reviewed: Medications were reviewed in detail Lab and Diagnostics Result Diagram: 11/18/16 1005 11/18/16 1005 Assessment & Plan 60-year-old female with a past medical history of uncontrolled diabetes, schizoaffective disorder presenting and admitted to inpatient psychiatric unit due report of gradual decline and failure to take care of herself. Hospitalist service has been consulted for further assistance with managing her her diabetes and elevated blood glucose. # Psychiatric disorder. Acute on chronic. present on admission. ongoing -Defer to primary psychiatry team for further management # Type II diabetes. Chronic. poorly controlled. present on admission - She has a history of difficult to control glucose levels (partially due to diet indiscretion) - continue with home dose insulin (Lantus 80 units) and will start additional Lantus 10 units qhs - c/w high dose insulin sliding scale - c/w home dose Metformin - diabetic diet - HgA1C 15.1 # Reported diarrhea, somewhat chronic and ongoing. present on admission - stool PCR negative - Lomotil prn # ? UTI based on UA on admission - urine culture showing evidence of contamination - recheck UA # History of Hypertension: - c/w home dose Propranolol # Hyperlipidemia: - c/w fenofibrate and atorvastatin # History of breast cancer - c/w Arimidex Dispo: per primary psych team GI Prophylaxis: Not indicated VTE Prophylaxis: Other (pt ambulating) Resuscitation Status: Limited Interventions (pt wishes to be DNI but OK to resuscitate. I discussed and verified this with the patient) Rashad Alba Nov 21, 2016 15:31 Rashad Alba Nov 21, 2016 15:31
--- NOTE | 2016-11-21 15:35 | NUR ---
day shift nursing note-Depression/Socialization/Appetite/SI/Psychosis S/O-"I sometimes hear voices but not now." "I took a shower last night... I do not want to take a shower this morning." Pt. has been in and out of her room most of the shift. She is pleasant and cooperative with staff. She has delayed responses when questioned. She stated she slept well last night. She assists staff while taking her blood glucose levels. She had many soiled pads in her room with a soft bloody stool found in her bedside commode. Her room was cleaned soon after. She has a good appetite. She has to be prompted to brush her teeth etc. She likes to engage in conversation with staff. She has direct eye contact and an even, steady gait. She denies SI, depression, HI or visual hallucinations. She rates her anxiety at 5/10. She reported she slept OK last night. A-Lack of insight. Needs supervision to attend to ADL's. P-Monitor for safety per protocol. Assess efficacy of meds to decrease depressive sxs., anxiety and diabetes. Encourage engagement on unit in activities. Prompt self care as needed.
--- NOTE | 2016-11-21 20:06 | NUR ---
Nurses Note Evening Patient has been cheerful,social and talkative with peers. Her thoughts have been clear organized and reality based. She remains medication compliant without adverse effects. Her blood sugars remain moderately elevated requiring sliding scale coverage 4 x's a day even though she remains diet compliant. Will continue to encourage self care related to her diabetic status,skin and foot care as well as diabetic diet compliance. Will continue to encourage medication compliance and follow-up to avoid readmission. Addendum: 11/21/16 at 2147 by TUCKER BLANTON RN Amended: Links added.
--- NOTE | 2016-11-21 20:45 | NUR ---
OBSERVATIONS 0700 TO 2130 Pt slept in her room much of the day but was social with peers when in common areas. Pt was cooperative, attended groups, and stated that she was "glad that people were noticing she's more cheerful and with it today." Pt showered today and stated that she would like to do laundry at some point and agreed to alert staff when she was ready to do so. Maintained Q15 safety checks as directed.
[2016-11-21] MEDS ORDERED: Insulin GLARgine 100 Unit/mL Syringe SUBQ SCH (21:00)
--- NOTE | 2016-11-22 05:34 | NUR ---
nursing, nights, 11-7 s- no, i'm ok. i just want a little something to coat my stomach. thank you. o- has appeared to sleep after 2114. up briefly at 349 and had some non fat milk. easily returned to sleep. assessed q 15 minutes. a- no apparent distress. p- monitor behavior/emotional state, quality, times and amount of sleep, use and effect of medication. elise
[2016-11-22] MEDS: DiphenOXYlate-Atropine 2.5 mg-0.025 mg Tablet PO PRN (07:01)
[2016-11-22] MEDS: Insulin Human REGular 300 Unit/3 mL Inj SUBQ SCH ×4 (07:53→20:49)
[2016-11-22 08:15] VITALS: BP 113/70; PULSE 95; RESP 18
[2016-11-22] MEDS: Divalproex (QD) 500 mg ER24 Tablet PO SCH ×2 (08:21→20:42)
[2016-11-22] MEDS: Tolterodine ER 4 mg ER24 Capsule PO SCH (08:21)
[2016-11-22] MEDS: Insulin GLARgine 100 Unit/mL Syringe SUBQ SCH (09:53)
--- NOTE | 2016-11-22 11:20 | PCM.PNPSY ---
Subjective Date of Service Nov 22, 2016 Subjective I spent 30 minutes both reviewing treatment plan with clinical team, interviewing the patient and providing supportive/educational psychotherapy. I spent more than 50% of the time counseling the patient . Elmira reports continued struggle with extreme fatigue, poor thought organization and a lack of motivation. She states she feels approximately 50% improved from admission and that she is getting better. Staff reports that she has been isolating in her room and not participating well in one-to-one unit and group activities. She slept 7.5 hours and complained of continued difficulty with depression symptoms review. She denies suicidal ideation however. She denies medication side effects. Patient was able to identify her medications and what they were used to treat. Current Medications Current Medications Atorvastatin Calcium 20 mg HS PO Last administered on 11/21/16 20:33; Admin Dose 20 MG; Start 11/20/16 at 21:00 Diphenoxylate HCl/ Atropine 1 tablet Q6H PRN PO Last administered on 11/22/16 07:01; Admin Dose 1 TABLET; Start 11/20/16 at 11:30 Insulin Glargine 10 unit HS SUBQ Last administered on 11/21/16 20:36; Admin Dose 10 UNIT; Start 11/21/16 at 21:00 Patient Own Medication 1 OT ONCE IM Last administered on 11/20/16 16:55; Admin Dose 1; Start 11/20/16 at 12:53; Stop 11/20/16 at 12:54; Status DC Mental Status Exam Vital Signs Vital Signs Date Time Temp Pulse Resp B/P Pulse Ox O2 Delivery O2 Flow Rate FiO2 11/22/16 08:15 36.9 95 18 113/70 Appearance: Disheveled, Malodorous Attitude: Cooperative Behavior: Other (lethargic) Affect: Restricted, Blunted, Flat Mood: Dysthymic, Depressed Thought Process/Associations: Logical/Sequential, Goal Directed Speech Production: Normal Speech Rate: Normal Speech Articulation: Normal Thought Content: Appropriate Danger to Self/Suicidal Ideati: None Danger to Others: None Consciousness: Somnolent, Lethargic Orientation: Person, Place, Date, Situation Memory: Grossly Intact Estimate Intellectual Function: Average Attention/Concentration & Cogn: Impaired Insight: Limited Judgement: Limited Result Diagram: 11/18/16 1005 11/18/16 1005 Mental Health Plan Patient is a 61-year-old white female who has been struggling for decades with schizoaffective disorder. She has been stabilized since being on our unit in May on Invega and Depakote. She last got her Invega shot on October 22, 2016, but from the laboratories, she is not taking her Depakote. The combination of an antipsychotic and a mood stabilizer has helped her maintain her ability to function in the past. For unclear reasons, she has been off this medication for an unclear amount of time and has shown gradual and steady worsening of ability to attend to activities of daily living and to participate in medical care. Her blood glucose was a nearly 400, and do not believe her current regimen as able to contain her lack of an ADA diet lifestyle. I appreciate consult from internal medicine for diabetic care recommendations. Elmira is needing encouragement to attend to activities of daily living but Seems to be making slow but positive progress here on the unit. [place] DIAGNOSIS: AXIS I: Schizoaffective disorder. AXIS II: None. AXIS III: 1. Urinary tract infection. 2. History of cerebrovascular accident. 3. Insulin dependent diabetes. 4. Breast carcinoma. 5. Hypertension. AXIS IV: Moderate AXIS V: GAF 35 Medications Keflex 500 mg four times a day for five days for urinary tract infection. Insulin Human Lispro Insulin Human Regular Metformin HCl 1,000 mg BIDWM Propranolol HCl 10 mg BID Treatments Patient is being provided with a high degree of safety through the structure and active adult engagement. We will focus on developing improved coping skills and identifying stressors that may have led to current episode. We will attempt to: Integrate into therapeutic groups, milieu and individual therapy. Maintain in a closely monitored and structured unit Obtain collateral data to assist in treatment planning Assess degree of lability of affect and impulse control Complete safety plan Decrease frequency of relapse and need for re-hospitalization Denies thoughts of harm to self and/or others Establish a consistent sleep pattern Medication effective in stabilization of mood and/or thought process Reduce the risk of imminent harm to self and/or others by providing a safe environment Tolerates medication without side effects Patient will be on the following psychiatric medications: Depakote at 500 twice a day , Will check Depakote level in five days. Invega 156 mg IM given 11/19/16 with a plan to continue Invega IM in 30 days Address patient's legal status Voluntary Alexandre Silva MD Nov 22, 2016 11:20
--- NOTE | 2016-11-22 11:24 | NUR ---
Safety And Security Manager./ c.m. S.:"I'm feeling better. My mind is clear and I'm not staying in my room all the time. I'm not in bed anymore. I'm watching TV and reading a magazine." O.: met with pt. in the Dining room. She was sitting in a TV area by herself. She slept "good" last night. She said that meds were helping her a lot. She noticed a positive change in her mood and attitude. She denied SI/HI, denied AH/VH or paranoid/delusional thoughts. She had more energy and motivation to do things. She denied depression or anxiety. She was looking forward to her visit with her sister today. "I hope she will be able to come today." A.: pt. is cooperative, pleasant, has brighter affect and more positive attitude. P.: monitor behavior, work on Safety plan and follow up; follow care plan.
--- NOTE | 2016-11-22 15:48 | PCM.PNMED ---
Subjective Date of Service Nov 22, 2016 Subjective no new issues/complaints reported Exam Vital Signs Vital Sign - Last Date Time Temp Pulse Resp B/P Pulse Ox O2 Delivery O2 Flow Rate FiO2 11/22/16 08:15 36.9 95 18 113/70 11/18/16 14:31 96 Room Air Intake and Output 11/21/16 11/21/16 11/22/16 Cumulative From/Thru 15:00 23:00 07:00 11/18/16 09:44 - 11/18/16 14:32 Intake Total 200 ml Balance 200 ml Intake Oral 200 ml Exam General: Alert, Cooperative, No Acute Distress Head: Normal Eyes: Scleral Anicteric Nose: Mucous Membr Moist/[place] Mouth: Mucous Membr Moist/[place] Neck: Supple Chest & Lungs: Chest Wall Normal, Clear to auscultation bilat Cardiovascular: Regular Rate/Rhythm Abdomen: Non-tender, Non-distended, Normoactive bowel tones, Soft Extremities: No cyanosis/clubbing/edema bilat Neurological: Grossly Neurologically Intact IVs and Medications Medications Reviewed: Medications were reviewed in detail Lab and Diagnostics Result Diagram: 11/18/16 1005 11/18/16 1005 Assessment & Plan 60-year-old female with a past medical history of uncontrolled diabetes, schizoaffective disorder presenting and admitted to inpatient psychiatric unit due report of gradual decline and failure to take care of herself. Hospitalist service has been consulted for further assistance with managing her her diabetes and elevated blood glucose. # Psychiatric disorder. Acute on chronic. present on admission. ongoing -Defer to primary psychiatry team for further management # Type II diabetes. Chronic. poorly controlled. present on admission - She has a history of difficult to control glucose levels (partially due to diet indiscretion) - continue with home dose insulin (Lantus 80 units daily) - c/w additional qhs Lantus started on 11/22/16. will increase from10 to 20 units qhs - c/w high dose insulin sliding scale - c/w home dose Metformin - diabetic diet - HgA1C 15.1 # Reported diarrhea, somewhat chronic and ongoing. present on admission - stool PCR negative - Lomotil prn # ? UTI based on UA on admission - urine culture showing evidence of contamination - recheck UA. ordered but not done yet # History of Hypertension: - c/w home dose Propranolol # Hyperlipidemia: - c/w fenofibrate and atorvastatin # History of breast cancer - c/w Arimidex Dispo: per primary psych team GI Prophylaxis: Not indicated VTE Prophylaxis: Other (pt ambulating) Resuscitation Status: Limited Interventions (pt wishes to be DNI but OK to resuscitate. I discussed and verified this with the patient) Rashad Alba Nov 22, 2016 15:48
--- NOTE | 2016-11-22 17:13 | NUR ---
NURS Note [id number] S/O Pt was out of room, interacting appropriately with staff and pts much of the shift. Pt reports positive mood and demonstrates positive, appropriate affect. "I'm doing much better. I've got my motivation back." Ate 100% of breakfast and lunch. MHA reported sleep was 7.5 hours but pt states that she did not sleep well and was lying in bed awake much of night. Pt reported one loose stool in the toilet this morning, given lomotil 1 tablet at 0701. Pt has agreed to only use bedside commode for emergencies and to notify nursing staff when she has used the commode. Stool culture from 11/20/16 came back negative for E. Coli, C. Difficile and other pathogens (see microbiology report). Blood glucose readings 216 at 0748, 298 at 1138, and 148 at 1644, administered sliding scale insulin as directed. A Pt has improved since yesterday day shift. Her affect is brighter and she is more social and future oriented. P Continue to monitor behavioral and emotional progress. Continue to assess for loose stools and monitor hydration status.
--- NOTE | 2016-11-22 20:17 | NUR ---
Observations 0900 to 2130 Pt affect and mood was isolative at times, flat and quiet. Pt eye contact and speech was ok. Pt was in her room most of the shift. Pt ate about 100% of her meals. Pt ate snacks. Pt maintained behavior throughout the shift. Pt was polite and cooperative. Pt attended group and unit activities. Pt attended community and set daily goals for herself. Pt was minimally social with staff and peers. Pt sister came to visit her and it appeared to go well. Pt was offered a shower but she declined. Pt did wash a load of clothes. Pt was observed every 15 minutes throughout the shift as ordered.
[2016-11-22] MEDS ORDERED: Insulin GLARgine 100 Unit/mL Syringe SUBQ SCH (21:00)
--- NOTE | 2016-11-23 01:41 | NUR ---
Observations 1900 to 0700 Pt was in her room for most of the night. Pt did come out for group. Pt first appeared asleep at 21:45 and was observed every 15 minutes through the night as directed.
--- NOTE | 2016-11-23 05:36 | NUR ---
Nursing Noc Pt pleasant and cooperative upon approach. She spent majority of the evening in her room but she did participate in evening wrap up group. She took her scheduled HS medication. HS OT was 274 with 7 units of Humalog given. No bouts of diarrhea noted this shift. She has remained asleep since 2144 with no noted distress or awakening per protocol checks. Total sleep over 8 hours.
[2016-11-23] MEDS: Divalproex (QD) 500 mg ER24 Tablet PO SCH ×2 (07:40→18:55)
[2016-11-23] MEDS: Tolterodine ER 4 mg ER24 Capsule PO SCH (07:40)
[2016-11-23] MEDS: Insulin Human REGular 300 Unit/3 mL Inj SUBQ SCH ×2 (07:46→11:55)
[2016-11-23] MEDS: Insulin GLARgine 100 Unit/mL Syringe SUBQ SCH (07:46)
[2016-11-23 10:20] VITALS: BP 117/67; PULSE 93; RESP 16
[2016-11-23] MEDS ORDERED: Glucose 40% Oral Gel 15 Gm Tube PO PRN (16:10)
--- NOTE | 2016-11-23 16:27 | NUR ---
GI Pt. reported only 2 small diarrhea today. PRN Lomotil was not needed. Pt. is coherent and friendly. Denied hallucination. She is looking forward to getting out of [facility].
[2016-11-23] MEDS ORDERED: hydrOXYzine Pamoate 25 mg Capsule PO PRN (16:55)
[2016-11-23] MEDS: Insulin LISPRO 300 Unit/3 mL Inj SUBQ SCH ×2 (17:36→21:27)
--- NOTE | 2016-11-23 17:37 | NUR ---
Observations [id number] Pt was asleep upon start of shift. She is friendly with staff and peers, and spent much of her time in her room sleeping/resting or in the dining room socializing with peers. Pt did attend Community Meeting and both groups, going outside and reading in the art room. Pt attended all meals, eating 100%. She was observed every 15 minutes of shift as directed.
--- NOTE | 2016-11-23 21:12 | PCM.PNMED ---
Subjective Date of Service Nov 23, 2016 Subjective patient is seen and examined. She says that she had diarrhea twice today. During my first visit to her room she soiled her clothes as wanted to be cleaned up. Her stool panel is negative so far she is started on Lomotil on a prior visit. She is currently getting treated for uterine infection with Keflex. She denies overnight fevers chills, nausea, vomiting. She states that she does not have dysuria but she does have what sounds like stress incontinence Exam Vital Signs Vital Sign - Last Date Time Temp Pulse Resp B/P Pulse Ox O2 Delivery O2 Flow Rate FiO2 11/22/16 08:15 36.9 95 18 113/70 11/18/16 14:31 96 Room Air Intake and Output 11/22/16 11/22/16 11/23/16 Cumulative From/Thru 15:00 23:00 07:00 11/18/16 09:44 - 11/18/16 14:32 Intake Total 200 ml Balance 200 ml Intake Oral 200 ml Exam Gen.: No acute distress HEENT: Normocephalic, atraumatic Heart: Regular rate and rhythm no S3-S4 murmurs Lungs: Clear to auscultation bilaterally no crackles or wheezes Abdomen obese soft nondistended Neuro: No focal deficit psych: Affect is pleasant and oriented cooperative IVs and Medications IV Fluids None Medications Reviewed: Medications were reviewed in detail Lab and Diagnostics None Result Diagram: 11/18/16 1005 11/18/16 1005 Assessment & Plan 60-year-old female with a past medical history of uncontrolled diabetes, schizoaffective disorder presenting and admitted to inpatient psychiatric unit due report of gradual decline and failure to take care of herself. Hospitalist service has been consulted for further assistance with managing her her diabetes and elevated blood glucose. # Psychiatric disorder. Acute on chronic. present on admission. ongoing -Defer to primary psychiatry team for further management # Type II diabetes. Chronic. poorly controlled. present on admission - She has a history of difficult to control glucose levels (partially due to diet indiscretion) - continue with home dose insulin (Lantus 80 units daily) - c/w additional qhs Lantus started on 11/22/16. Added 10 units 3 times a day with meals - c/w high dose insulin sliding scale - c/w home dose Metformin - diabetic diet - HgA1C 15.1 # Reported diarrhea, somewhat chronic and ongoing. present on admission - stool PCR negative - Lomotil prn: Switch to Loperamide for better relief of symptoms # ? on UA on admission - urine culture showing evidence of contamination - Recheck urine: Staff were unable to collect as because of the diarrhea # History of Hypertension: - c/w home dose Propranolol # Hyperlipidemia: - c/w fenofibrate and atorvastatin # History of breast cancer - c/w Arimidex Dispo: per primary psych team GI Prophylaxis: Not indicated VTE Prophylaxis: Other (pt ambulating) Resuscitation Status: Limited Interventions (pt wishes to be DNI but OK to resuscitate. I discussed and verified this with the patient) Zoraida Castano DO Nov 23, 2016 05:50
--- NOTE | 2016-11-23 21:22 | PCM.PNPSY ---
Subjective Date of Service Nov 23, 2016 Subjective The patient reports that her medications are "working well...I feel perky. I feel motivated now...shower, every day things, eating better, all around doing things better, energized." The patient reports her only side effect is some itching but has no rash present. Patient reports occasional flushing mid morning. She reports feeling very hopeful. Sleep: 8.5+ hours Appetite: "good" Suicidal and homicidal ideation: denies Auditory hallucinations/Visual hallucinations: denies Other Psychotic Symptoms: N/A Anxiety: denies Depression: denies Current Medications Current Medications Insulin Glargine 20 unit HS SUBQ Last administered on 11/22/16 20:49; Admin Dose 20 UNIT; Start 11/22/16 at 21:00; Stop 11/23/16 at 16:09; Status DC Insulin Human Lispro Nutritional Dose to be given pr... [facility] SUBQ Last administered on 11/23/16 17:36; Admin Dose 17 UNIT; Start 11/23/16 at 17:30 Lactobacillus Acidophilus 1 tablet PCHS PO Last administered on 11/23/16 17:37; Admin Dose 1 TABLET; Start 11/23/16 at 18:00 Loperamide HCl 4 mg ONCE ONCE PO Last administered on 11/23/16 17:12; Admin Dose 4 MG; Start 11/23/16 at 16:35; Stop 11/23/16 at 16:46; Status DC Mental Status Exam Appearance: Unkept Attitude: Cooperative Behavior: No unusual behavior Affect: Restricted Mood: Euthymic Thought Process/Associations: Logical/Sequential, Goal Directed Speech Production: Normal Speech Rate: Normal Speech Articulation: Normal Thought Content: Appropriate Danger to Self/Suicidal Ideati: None Danger to Others: None Hallucinations: Auditory (Denies), Visual (Denies) Consciousness: Alert Orientation: Person, Place, Date, Situation Memory: Grossly Intact Estimate Intellectual Function: Average Attention/Concentration & Cogn: Grossly Intact Insight: Limited Judgement: Limited Result Diagram: 11/18/16 1005 11/18/16 1005 Mental Health Plan Patient is a 61-year-old white female with a long history of schizoaffective disorder. She has been stabilized since her last admission to the [facility] in May on Invega and Depakote. She last got her Invega shot on October 22, 2016, but according to laboratory findings, she had not been taking her Depakote. The combination of an antipsychotic and a mood stabilizer has helped her maintain her ability to function in the past. For unclear reasons, she has been off this medication for an unclear amount of time and has shown gradual and steady worsening of ability to attend to activities of daily living and to participate in medical care. Her blood glucose at the time of admission was a nearly 400. Since returning to medication adherence, she has demonstrated a significant improvement in her symptoms with a return to baseline. [place] AXIS I: Schizoaffective disorder. AXIS II: None. AXIS III: 1. Urinary tract infection, resolved. 2. History of cerebrovascular accident. 3. Insulin dependent diabetes. 4. Breast carcinoma. 5. Hypertension. AXIS IV: Moderate AXIS V: GAF 40 Medications Divalproex sodium 500mg po bid. Invega [place] 156mg IM last dose on 11/20/16, next due 12/17/16 Treatments 1. The patient is admitted to the inpatient unit and will be provided a safe and secure environment. 2. The patient is denying current active suicidality and is not in need of a one-to-one at this time. 3. The patient is encouraged to participate with group and milieu activities. 4. The patient will be seen by the treatment team on a daily basis to assess symptoms, side effects and response to treatment. 5. Continue current medications as prescribed. 6. Valproic acid level and cmp in am with discharge if in therapeutic range. 7. Anticipated length of stay is 1-2 days. Matt Presley MD Nov 23, 2016 21:22 Denies thoughts of harm to self and/or others Establish a consistent sleep pattern Medication effective in stabilization of mood and/or thought process Reduce the risk of imminent harm to self and/or others by providing a safe environment Tolerates medication without side effects Patient will be on the following psychiatric medications: Depakote at 500 twice a day , Will check Depakote level in five days. Invega 156 mg IM given 11/19/16 with a plan to continue Invega IM in 30 days Address patient's legal status Voluntary Matt Presley MD Nov 23, 2016 21:22 Matt Presley MD Nov 23, 2016 21:22
--- NOTE | 2016-11-23 22:04 | NUR ---
Nursing Note: evening shift Patient is visible in dining room and hallway. Patient was seen by hospitalist with change of orders. Patient was given one time dose of Immodium as ordered. Patient has been compliant with diet. Bedside blood glucose before dinner was 278 with sliding scale coverage. Patient ate 100% of dinner, no further reports of diarrhea this evening. Patient interacts with peers and appears with brighter affect later evening. Patient again had blood sugar of 245 with sliding scale coverage. Patient retired to bed and appears asleep
--- NOTE | 2016-11-24 03:02 | NUR ---
Observations 1900 to 0700 Pt was in her room for most of the night. Pt did come out for group and to grab water on a few occasions. Pt first appeared asleep at 22:15 and was observed every 15 minutes through the night as directed.
--- NOTE | 2016-11-24 06:12 | NUR ---
Nursing Note Communications Administrator 11pm to 7am Pt OOB for water at 1130 went right back to sleep. Slept uninterrupted for the remainder of shift. Monitored q 15 minutes for safety, location and accountability. No complaints observed or reported.
[2016-11-24] MEDS: Tolterodine ER 4 mg ER24 Capsule PO SCH (07:43)
[2016-11-24] MEDS: Divalproex (QD) 500 mg ER24 Tablet PO SCH (07:45)
[2016-11-24] MEDS: Insulin LISPRO 300 Unit/3 mL Inj SUBQ SCH ×3 (07:49→11:43)
[2016-11-24 09:00] VITALS: BP 116/77; PULSE 97; RESP 15
--- NOTE | 2016-11-24 09:13 | NUR ---
Stereo Equipment Salesperson./ c.m. S.:"I'm feeling very good." O.: met with pt. in her room after breakfast. She completed Safety plan. She denied SI/HI, denied AH/VH. She felt "ready to go home". Pt.'s aram Flores from [facility] will come at 12:30 to pick pt. up. Pt. has follow up appt. for meds next November 30 @ 10:15 am with RYLIE Carpenter at [facility] office ([phone]). A.: pt. is pleasant, cooperative, has a bright affect, wants to go home. P.: monitor behavior, follow care plan.
[2016-11-24] MEDS ORDERED: Insulin GLARgine 100 Unit/mL Syringe SUBQ SCH (09:30)
--- NOTE | 2016-11-24 10:57 | PCM.DIMED ---
Discharge Instructions Date of Service Nov 24, 2016 Dates of Hospitalization Nov 18, 2016 at 13:53 Discharge Diagnosis Discharge Diagnosis AXIS I: Schizoaffective disorder. AXIS II: None. AXIS III: 1. Urinary tract infection 2. History of cerebrovascular accident. 3. Insulin dependent diabetes. 4. Breast carcinoma. 5. Hypertension. AXIS IV: Moderate AXIS V: GAF 45 Medication Instructions Have your valproic acid level (Depakote level) drawn in 1 week. Follow-up with your provider regarding adding additional insulin 10units 3 times daily with meals. Test Results Laboratory Tests 72 Hours Test 11/24/16 07:21 Sodium Level 139mEq/L (134-144) Potassium Level 4.5mEq/L (3.5-5.2) Chloride Level 101mEq/L (97-108) Carbon Dioxide Level 24mmol/L (18-29) Blood Urea Nitrogen 13mg/dL (8-27) Creatinine 0.52mg/dL (0.57-1.00) Estimat Glomerular Filtration Rate 171mL/min (>59) Glucose Level 224mg/dL (60-99) Calcium Level 9.2mg/dL (8.5-10.1) Total Bilirubin 0.3mg/dL (0.0-1.2) Aspartate Amino Transf (AST/SGOT) 31U/L (0-50) Alanine Aminotransferase (ALT/SGPT) 38U/L (0-32) Alkaline Phosphatase 107U/L (25-165) Total Protein 5.9g/dL (6.4-8.4) Albumin 3.5g/dL (3.4-5.0) Valproic Acid (Depakene) Level 26ug/mL (50-125) CBC Test 11/18/16 10:05 White Blood Count 7.4th/mm3 (3.8-10.1) Red Blood Count 4.85mil/mm3 (3.90-5.20) Hemoglobin 13.4g/dL (12.0-15.6) Hematocrit 40.8% (35.0-46.0) Mean Corpuscular Volume 84.1fL (81-100) Mean Corpuscular Hemoglobin 27.6pg (27.0-35.0) Mean Corpuscular Hemoglobin Concent 32.8% (32.0-37.0) Red Cell Distribution Width 13.9% (12.3-15.4) Platelet Count 230bil/L (150-400) Neutrophils (%) (Auto) 73.0% (40-74) Lymphocytes (%) (Auto) 15.2% (14-46) Monocytes (%) (Auto) 10.4% (4-12) Eosinophils (%) (Auto) 0.5% (0-5) Basophils (%) (Auto) 0.5% (0-3) CMP Test 11/18/16 10:05 11/19/16 12:15 11/24/16 07:21 Thyroid Stimulating Hormone (TSH) 0.679uIU/mL Hold Garsia Top Tube Received Hemoglobin A1c 15.1% Sodium Level 139mEq/L Potassium Level 4.5mEq/L Chloride Level 101mEq/L Carbon Dioxide Level 24mmol/L Blood Urea Nitrogen 13mg/dL Creatinine 0.52mg/dL Estimat Glomerular Filtration Rate 171mL/min Glucose Level 224mg/dL Calcium Level 9.2mg/dL Total Bilirubin 0.3mg/dL Aspartate Amino Transf (AST/SGOT) 31U/L Alanine Aminotransferase (ALT/SGPT) 38U/L Alkaline Phosphatase 107U/L Total Protein 5.9g/dL Albumin 3.5g/dL Diet Diabetic Activity No restrictions Patient Instructions Should you have any thoughts of harming yourself or others, please call the crisis line, your provider, 911, or go to the nearest Emergency Department. Do not change or discontinue your medications without discussing with your provider. You have been given a prescription for 30 days supply of your medication Follow-up plan Clinician: Yudelka Menon on 11/24/16 at 12:30pm [address] Prescriber RYLIE Carpenter on 11/30/16 at 10:15am [address] Matt Presley MD Nov 24, 2016 10:57
[2016-11-24] MEDS ORDERED: Lactobacillus Acidophilus PO (11:02)
--- NOTE | 2016-11-24 12:07 | NUR ---
Nursing Discharge- Planned discharge to home today at 1230. Pt. had slept well per report. She denied auditory/visual hallucinations, depression, or anxiety. Dr. Castano was consulted for discharge insulin instructions. Her recommendations were passed along to Dr. Presley. All discharge paperwork was completed and the Pt. expressed an understanding of her follow up and medication plans. None of the Pt's medications have been changed since admission. The PACT team informed staff that the Pt. has enough bubble packed meds to last until the next MD visit. Addendum: 11/24/16 at 1317 by ALLEY HILTON RN Pt. discharged as planned.
[2016-11-24 13:14] LABS: APPEARANCE,URINE HAZY (CLEAR,HAZY); COLOR,URINE YELLOW (YELLOW); OCCULT BLOOD,URINE NEGATIVE (NEGATIVE); PH,URINE 5.5 (5.0-8.0); UROBILINOGEN,URINE NORMAL (NORMAL)
--- NOTE | 2016-11-24 16:44 | PCM.DC.MED ---
Discharge Summary Date of Service Nov 24, 2016 Dates of Hospitalization Date of Hospital Admission Nov 18, 2016 at 13:53 Date of Discharge: Nov 24, 2016 Providers: Admitting Physician: Maida Arcos MD Primary Care Physician: Esequiel Neely DO Attending Physician: Maida Arcos MD Diagnosis at Time of Discharge Diagnosis at Time of Discharge AXIS I: Schizoaffective disorder. AXIS II: None. AXIS III: 1. Urinary tract infection 2. History of cerebrovascular accident. 3. Insulin dependent diabetes. 4. Breast carcinoma. 5. Hypertension. AXIS IV: Moderate AXIS V: GAF 45 Consultations Internal medicine. Brief History History and physical by Dr. Maida Arcos from 11/19/2016: IDENTIFICATION: Patient is a 61-year-old female currently living independently for the past 10 years. She is on Social Security and follows with [facility]. She lives in [place]. REASON FOR ADMISSION: Client brought to the ER by her mental health counselor due to concern of grave disability with poor hygiene, not taking her psychiatric medications, and beginning to have increasing psychotic symptoms of hallucinations. Her thinking is becoming poor, and she was confused about her diabetic management. HISTORY OF PRESENT ILLNESS: The patient is a 61-year-old white female with a long history of schizoaffective disorder who presented to the ER after a gradual decline and failure to take care of herself. Her Depakote level was less than 10. Hygiene was poor, and she was beginning to have auditory hallucinations. Her blood glucose was nearly 400, as she does not appear to be attending to her diabetic care. She tends to smoke over a pack of cigarettes per day. She was willing to come in on a voluntary basis at this time. She is experiencing some auditory hallucinations but reported that since starting Invega, her psychotic symptoms have been significantly improved. Client's main issue is medication noncompliance and poor care of her diabetes. The condition is chronic, and at present it is of a moderate intensity manifesting with symptoms of poor self- care, poor thought organization, and beginning to have auditory hallucinations. All the above is made worse by social isolation. It appears one of the stressors is that her sister, who is her JUSTIN worker, was sick and sent another person for a week for p.m. meds. It appears that this did not work out well. At present, she is showing no signs of emotional liability, but marked cognitive deficits and significant impairment in coping, insight and judgment. Medical history: 60-year-old female with a past medical history of uncontrolled diabetes, schizoaffective disorder presenting and admitted to inpatient psychiatric unit due report of gradual decline and failure to take care of herself. Hospitalist service has been consulted for further assistance with managing her her diabetes and elevated blood glucose. Currently patient's main complaint is diarrhea which she describes as intermittent 3-4 loose stools daily for the past few weeks. She also admits to having some auditory hallucinations and otherwise denies any other issues/ complaints. Hospital Course Psychiatric summary of care: The patient was admitted to the unit and continued on Keflex 500 mg 4 times a day complete a 5 day course treatment. Her follow-up urinalysis was leukocyte negative but still had urine epithelial cells. She was restarted on Depakote 500 mg twice daily and her follow-up Depakote level was 26 so she was discharged on her previous outpatient dose of 500 mg daily and 1000 mg at bedtime. She received her Invega Sustenna 156 mg injection on 11/19/2016. The patient reported resolution of her auditory hallucinations and was consistently reporting a good mood and exhibiting a bright affect. She requested to discharge and was picked up by her sister to be taken home. She had a number of medical issues and her care as summarized by internal medicine as noted below. At the time of discharge, the patient was reporting her mood as doing really well." Sleep was reported as "better at home because there is too much noise," 7.25 hours per staff. Appetite was reported as fine. Her anxiety was reported as 0/10 and depression as 0/10. She denied auditory or visual hallucinations and any thought, intent or plan of hurting herself or others. Hospitalist summary: 60-year-old female with a past medical history of uncontrolled diabetes, schizoaffective disorder presenting and admitted to inpatient psychiatric unit due report of gradual decline and failure to take care of herself. Hospitalist service has been consulted for further assistance with managing her her diabetes and elevated blood glucose. # Psychiatric disorder. Acute on chronic. present on admission. ongoing -Defer to primary psychiatry team for further management # Type II diabetes. Chronic. poorly controlled. present on admission - She has a history of difficult to control glucose levels (partially due to diet indiscretion) - continue with home dose insulin (Lantus 80 units daily) - c/w additional qhs Lantus started on 11/22/16. Added 10 units 3 times a day with meals - c/w high dose insulin sliding scale - c/w home dose Metformin - diabetic diet - HgA1C 15.1 # Reported diarrhea, somewhat chronic and ongoing. present on admission - stool PCR negative - Lomotil prn: Switch to Loperamide for better relief of symptoms # ? on UA on admission - urine culture showing evidence of contamination - Recheck urine: Staff were unable to collect as because of the diarrhea # History of Hypertension: - c/w home dose Propranolol # Hyperlipidemia: - c/w fenofibrate and atorvastatin # History of breast cancer - c/w Arimidex Dispo: per primary psych team Exam Vital Signs (Last) Date Time Temp Pulse Resp B/P Pulse Ox O2 Delivery O2 Flow Rate FiO2 11/24/16 09:00 36.1 97 15 116/77 11/18/16 14:31 96 Room Air Exam Discharge Mental Status Exam Appearance: Adequate grooming Attitude: Cooperative Behavior: No unusual behavior Affect: Restricted Mood: Euthymic Thought Process/Associations: Logical/Sequential, Goal Directed Speech Production: Normal Speech Rate: Normal Speech Articulation: Normal Thought Content: Appropriate Danger to Self/Suicidal Ideation: None Danger to Others: None Hallucinations: Auditory (Denies), Visual (Denies) Consciousness: Alert Orientation: Person, Place, Date, Situation Memory: Grossly Intact Estimate Intellectual Function: Average Attention/Concentration & Cognition: Grossly Intact Insight: Limited but improving Judgement: Limited but improving AIMS: Negative Physical exam: No cogwheeling or rigidity. Test 11/18/16 10:05 11/19/16 12:15 11/24/16 07:21 11/24/16 12:50 White Blood Count 7.4th/mm3 (3.8-10.1) Red Blood Count 4.85mil/mm3 (3.90-5.20) Hemoglobin 13.4g/dL (12.0-15.6) Hematocrit 40.8% (35.0-46.0) Mean Corpuscular Volume 84.1fL (81-100) Mean Corpuscular Hemoglobin 27.6pg (27.0-35.0) Mean Corpuscular Hemoglobin Concent 32.8% (32.0-37.0) Red Cell Distribution Width 13.9% (12.3-15.4) Platelet Count 230bil/L (150-400) Neutrophils (%) (Auto) 73.0% (40-74) Lymphocytes (%) (Auto) 15.2% (14-46) Monocytes (%) (Auto) 10.4% (4-12) Eosinophils (%) (Auto) 0.5% (0-5) Basophils (%) (Auto) 0.5% (0-3) Thyroid Stimulating Hormone (TSH) 0.679uIU/mL (0.450-4.500) Hold Garsia Top Tube Received (Received) Hemoglobin A1c 15.1% (4.8-5.6) Sodium Level 139mEq/L (134-144) Potassium Level 4.5mEq/L (3.5-5.2) Chloride Level 101mEq/L (97-108) Carbon Dioxide Level 24mmol/L (18-29) Blood Urea Nitrogen 13mg/dL (8-27) Creatinine 0.52mg/dL (0.57-1.00) Estimat Glomerular Filtration Rate 171mL/min (>59) Glucose Level 224mg/dL (60-99) Calcium Level 9.2mg/dL (8.5-10.1) Total Bilirubin 0.3mg/dL (0.0-1.2) Aspartate Amino Transf (AST/SGOT) 31U/L (0-50) Alanine Aminotransferase (ALT/SGPT) 38U/L (0-32) Alkaline Phosphatase 107U/L (25-165) Total Protein 5.9g/dL (6.4-8.4) Albumin 3.5g/dL (3.4-5.0) Valproic Acid (Depakene) Level 26ug/mL (50-125) Urine Color Yellow (YELLOW) Urine Appearance Hazy (CLEAR,HAZY) Urine pH 5.5 (5.0-8.0) Urine Specific [place] 1.020 (1.003-1.035) Urine Protein Negativemg/dL (NEG,TRACE) Urine Glucose (UA) 1000mg/dL (NEGATIVE) Urine Ketones Negativemg/dL (NEGATIVE) Urine Occult Blood Negative (NEGATIVE) Urine Nitrite Negative (NEGATIVE) Urine Bilirubin Negative (NEGATIVE) Urine Urobilinogen Normalmg/dL (NORMAL) Urine Leukocyte Esterase Negative (NEGATIVE) Urine RBC 0-2/hpf (0-2) Urine WBC 6-10/hpf (0-5) Urine Epithelial Cells Many/hpf (NONE-MOD) Urine Crystals None seen (NONE SEEN) Urine Bacteria Few/hpf (NONE-FEW) Urine Hyaline Casts None/lpf (NONE) Urine Granular Casts None seen (NONE SEEN) Urine Waxy Casts None seen (NONE SEEN) Urine Red Blood Cell Casts None seen (NONE SEEN) Urine White Blood Cell Casts None seen (NONE SEEN) Urine Mucus Present (None Seen) Urine Trichomonas None seen (NONE SEEN) Urine Yeast None (NONE SEEN) Urinalysis Comment None Urine Culture Reflexed Indicated Discharge Medications Discharge Medications ([Lactobacillus Acidophilus]) 1 TABLET TABLET 1 TABLET PO PCHS Prescribed by: CARIDAD PRESLEY MD Anastrozole (Arimidex) 1 Mg Tablet 1 MG PO DAILY Prescribed by: MAIDA ARCOS MD Aspirin (Aspirin) 81 Mg Tablet 81 MG PO DAILY (Reported) Atorvastatin Calcium (Atorvastatin Calcium) 20 Mg Tablet 20 MG PO DAILY ( Reported) Cholecalciferol (Vitamin D3) (Vitamin D3) 50,000 Unit Capsule 50,000 UNIT PO WEEKLY (Reported) pt takes on tuesdays Divalproex ER (Divalproex ER) 500 Mg Tab.er.24h 1,000 MG PO HS Prescribed by: MAIDA ARCOS MD Divalproex ER (Divalproex ER) 500 Mg Tab.er.24h 500 MG PO DAILY Prescribed by: MAIDA ARCOS MD Dulaglutide (Trulicity) 0.75 Mg/0.5 Ml Pen.injctr 0.75 MG SQ WEEKLY (Reported) on wednesdays Fenofibrate Nanocrystallized (Fenofibrate) 145 Mg Tablet 145 MG PO DAILY ( Reported) Insulin Detemir (Levemir U100 Insulin Vial) 100 Unit/1 Ml Vial 80 UNIT SUBQ QAM (Reported) Metformin (Glucophage) 500 Mg Tablet 1,000 MG PO BIDWM Prescribed by: MAIDA ARCOS MD Oxybutynin Chloride ER (Oxybutynin Chloride ER) 10 Mg Tab.er.24 10 MG PO DAILY Prescribed by: MAIDA ARCOS MD Paliperidone Palmitate Inj (Invega Sustenna) 156 Mg/1 Ml Syringe 156 MG IM monthly (Reported) last given on 3/2/17 next dose due 11/19/16 Propranolol HCl (Propranolol HCl) 10 Mg Tablet 10 MG PO BID (Reported) Additional med instructions Have your valproic acid level (Depakote level) drawn in 1 week. Follow-up with your provider regarding adding additional insulin 6 units 3 times daily with meals. Followup Plan Disposition: The patient was requesting discharge and there was no indication for further hospitalization. She was discharged in the company of her sister and was going to return to her home. Follow-up plan Clinician: Yudelka Menon on 11/24/16 at 12:30pm [address] Prescriber RYLIE Carpenter on 11/30/16 at 10:15am [address] Discharge Diet: Diabetic Discharge Activity: No restrictions Patient Instructions Should you have any thoughts of harming yourself or others, please call the crisis line, your provider, 911, or go to the nearest Emergency Department. Do not change or discontinue your medications without discussing with your provider. You have been given a prescription for 30 days supply of your medication Caridad Presley MD Nov 24, 2016 16:44
[2016-11-26] MEDS ORDERED: DULAGLUTIDE 0.75 MG SUBQ SCH (08:30)
[2016-11-26] MEDS ORDERED: Ergocalciferol (Vit D2) 50,000 Unit Capsule PO SCH (08:30)
== END 2016-11-24 12:30 | disposition home or self-care (01) | DRG 885 ==
LOC: SED 09:39 → MHC 13:53
PROVIDERS: ADMIT Psychiatry & Neurology Psychiatry; ATTEND Psychiatry & Neurology Psychiatry
DX: F25.9 Schizoaffective disorder, unspecified (principal); N39.0 Urinary tract infection, site not specified; F17.200 Nicotine dependence, unspecified, uncomplicated; E11.65 Type 2 diabetes mellitus with hyperglycemia; I10 Essential (primary) hypertension; E78.5 Hyperlipidemia, unspecified; R19.7 Diarrhea, unspecified; Z86.73 Personal history of transient ischemic attack (TIA), and cerebral infarction without residual deficits; Z79.4 Long term (current) use of insulin; Z91.19 Patient's noncompliance with other medical treatment and regimen; Z79.82 Long term (current) use of aspirin

== ENCOUNTER 2016-12-25 12:13 | Inpatient (IN) | payer MEDICARE, MEDICAID ==
[~2016-12-25] VITALS: Ht 162.6 cm; Wt 85.0 kg
[2016-12-25] VITALS (13 sets, daily range): BP systolic 114–147; BP diastolic 52–81; PULSE 109–121; RESP 20–40; O2SAT 93–97
[2016-12-25] MEDS: Vancomycin 1 Gm/200 mL NS Premix IV SCH ×3 (01:30→17:30)
[~2016-12-25 12:13] MED LIST changes: +CHOL500050 PO; +DULA0.75 SQ; -ERGO2000 PO; -INSLIS SUBQ; +INSU100V4 SUBQ; -INSU100V7 SUBQ; +Lactobacillus Acidophilus PO; +PROP10TA8 PO; -PROP20TA5 PO
--- NOTE | 2016-12-25 12:43 | ED.REPORT ---
HPI-General Illness Date of Service December 25, 2016 ED Provider: The patient is a 61 year old female with history of hypertension, diabetes mellitus, prior CVA, breast cancer s/p bilateral mastectomies, anxiety, depression, and schizo-affective disorder with bipolar, who presents to the emergency department by EMS for shortness of breath that began a few days ago. She has also had a cough and chills. Her symptoms have worsened since onset. She denies chest pain, fever or vomiting. The patient feels like she is getting more tired. She was given a DuoNeb en route by medics. She denies any history of respiratory disease. She is a current everyday tobacco smoker. Nursing Notes Stated Complaint: SOB Chief Complaint: Respiratory Distress Nursing Notes Reviewed: Yes Allergies: Coded Allergies: Thiothixene HCl (Verified Allergy, Unknown, painful muscle spasms in jaw , 11/18/16) thiothixene (Verified Allergy, Unknown, UNKNOWN, 11/18/16) Scheduled Anastrozole (Arimidex) 1 Mg Tablet 1 MG PO DAILY Aspirin (Aspirin) 81 Mg Tablet 81 MG PO DAILY Atorvastatin Calcium (Atorvastatin Calcium) 20 Mg Tablet 20 MG PO DAILY Cholecalciferol (Vitamin D3) (Vitamin D3) 50,000 Unit Capsule 50,000 UNIT PO WEEKLY pt takes on tuesdays Divalproex ER (Divalproex ER) 500 Mg Tab.er.24h 1,000 MG PO HS Divalproex ER (Divalproex ER) 500 Mg Tab.er.24h 500 MG PO QAM Dulaglutide (Trulicity) 0.75 Mg/0.5 Ml Pen.injctr 0.75 MG SQ WEEKLY on wednesdays Fenofibrate Nanocrystallized (Fenofibrate) 145 Mg Tablet 145 MG PO DAILY Fluticasone Propionate (Fluticasone Propionate Nasal) 16 Gm [place].susp 2 SPRAYS NASAL DAILY Insulin Detemir (Levemir U100 Insulin Vial) 100 Unit/1 Ml Vial 80 UNIT SUBQ QAM Metformin (Glucophage) 500 Mg Tablet 1,000 MG PO BIDWM Paliperidone Palmitate Inj (Invega Sustenna) 156 Mg/1 Ml Syringe 156 MG IM monthly last given on 10/22/16 next dose due 11/19/16 Propranolol HCl (Propranolol HCl) 10 Mg Tablet 10 MG PO BID General Time Seen by MD: 12:43 Chief Complaint Other (shortness of breath) Hx Obtained From: Patient, EMS Arrived By: Ambulance Sudden in Onset?: No Onset Occurred: 3 days ago Symptom Duration: Since onset Severity: Current: No pain currently Severity: Maximum: No pain Recent Healthcare: No recent doctor visit, No recent hospitalization Similar Sx Previous: No Past Medical History Past Medical History Notes: Hospitalized for schizo-affective disorder from 11/18-11/24 or this year. Past Medical History Slight tremor/speech alteration R/T use of neuroleptics Hx of pneumonia Schizo-affective disorder, bipolar type, w/ auditory hallucinations Hx of breast cancer in 2013 s/p bilateral mastectomies Hypertension IDDM CVA Anxiety Depression Past Surgical History Double mastectomy Thyroid biopsy, negative Bilateral mastectomy Family History Noncontributory Smoking History Current Every Day Smoker Social History Alcohol Use: "Social" Other Social History: Lives alone, Local resident Ambulatory Status Independent Review of Systems Full Review of Systems Constitutional: Reports: Chills, Fatigue, Denies: Fever Respiratory: Reports: Non-productive cough, Shortness of breath Cardiovascular: Denies: Chest pain GI: Denies: Vomiting Complete sys rev & neg: except as marked. Physical Exam Vital Signs Vital Signs Date Time Temp Pulse Resp B/P Pulse Ox O2 Delivery O2 Flow Rate FiO2 12/25/16 14:30 111 20 134/71 93 12/25/16 13:32 40 95 35 12/25/16 12:30 36.5 121 30 147/72 93 8 Initial VS: Reviewed Head / Eyes: Atraumatic, Normocephalic, PERRL ENT: Mucous membranes moist, Conjunctiva normal, No scleral icterus Neck: Supple, Non-tender, Full range of motion Abdomen / GI: Soft, Non-tender, No guarding, No rebound, No distention Lymphatic: No lymphadenopathy Extremities: Vascular intact, Neuro intact Skin: Warm, Dry, No cyanosis Neurologic: Alert, Oriented, Nonfocal Psychiatric: Mood/affect normal, Behavior normal, Normal thought content General/Constitutional: Awake, Alert, Cooperative Distress / Hydration: Positive: Distress moderate She feels like she is getting more tired. Resp Distress / Stridor: Positive: Resp distress moderate She is still able to speak in full sentences. She is tachypneic with poor air movement throughout. She has diffuse wheezing and coarse breath sounds throughout. 88% on 2 L. Bilateral mastectomies. Cardiovascular: Regular rhythm, Heart sounds NL, Peripheral circulation NL Heart Rate / Rhythm: Positive: Tachycardia Lower Ext Edema: Positive: Bilateral 1+ Interpretation & Diagnostics Lab Results Interpretation Result Diagram: 12/25/16 1230 12/25/16 1230 Test 12/25/16 12:30 12/25/16 13:00 12/25/16 15:06 White Blood Count 12.3th/mm3 (3.8-10.1) Red Blood Count 4.01mil/mm3 (3.90-5.20) Hemoglobin 11.1g/dL (12.0-15.6) Hematocrit 33.5% (35.0-46.0) Mean Corpuscular Volume 83.5fL (81-100) Mean Corpuscular Hemoglobin 27.7pg (27.0-35.0) Mean Corpuscular Hemoglobin Concent 33.1% (32.0-37.0) Red Cell Distribution Width 13.9% (12.3-15.4) Platelet Count 269bil/L (150-400) Neutrophils (%) (Auto) 73.8% (40-74) Lymphocytes (%) (Auto) 9.2% (14-46) Monocytes (%) (Auto) 16.2% (4-12) Eosinophils (%) (Auto) 0.1% (0-5) Basophils (%) (Auto) 0.4% (0-3) Sodium Level 137mEq/L (134-144) Potassium Level 3.8mEq/L (3.5-5.2) Chloride Level 100mEq/L (97-108) Carbon Dioxide Level 22mmol/L (18-29) Blood Urea Nitrogen 12mg/dL (8-27) Creatinine 0.55mg/dL (0.57-1.00) Estimat Glomerular Filtration Rate 160mL/min (>59) Glucose Level 212mg/dL (60-99) Calcium Level 9.7mg/dL (8.5-10.1) Total Bilirubin 0.9mg/dL (0.0-1.2) Aspartate Amino Transf (AST/SGOT) 42U/L (0-50) Alanine Aminotransferase (ALT/SGPT) 63U/L (0-32) Alkaline Phosphatase 118U/L (25-165) Troponin T < 0.010ug/L (0.0-0.011) Pro-B-Type Natriuretic Peptide 830.7pg/mL (0-287) Total Protein 7.5g/dL (6.4-8.4) Albumin 3.4g/dL (3.4-5.0) Procalcitonin 0.55ng/mL (0.00-0.08) Lactic Acid Level 1.3mmol/L (0.4-2.0) Urine Color Dark yellow (YELLOW) Urine Appearance Hazy (CLEAR,HAZY) Urine pH 5.5 (5.0-8.0) Urine Specific [place] 1.015 (1.003-1.035) Urine Protein 30mg/dL (NEG,TRACE) Urine Glucose (UA) 100mg/dL (NEGATIVE) Urine Ketones Negativemg/dL (NEGATIVE) Urine Occult Blood Trace (NEGATIVE) Urine Nitrite Positive (NEGATIVE) Urine Bilirubin Negative (NEGATIVE) Urine Urobilinogen 2.0mg/dL (NORMAL) Urine Leukocyte Esterase Trace (NEGATIVE) Urine RBC 0-2/hpf (0-2) Urine WBC 11-50/hpf (0-5) Urine Epithelial Cells Occasional/hpf (NONE-MOD) Urine Crystals None seen (NONE SEEN) Urine Bacteria Many/hpf (NONE-FEW) Urine Hyaline Casts Occasional/lpf (NONE) Urine Granular Casts Occasional (NONE SEEN) Urine Waxy Casts None seen (NONE SEEN) Urine Red Blood Cell Casts None seen (NONE SEEN) Urine White Blood Cell Casts None seen (NONE SEEN) Urine Mucus Present (None Seen) Urine Trichomonas None seen (NONE SEEN) Urine Yeast None (NONE SEEN) Urinalysis Comment None Urine Culture Reflexed Indicated ECG Interpretation ECG Interpretation: Sinus tachycardia with a rate of 116 Time: 12:50 Interpreted by: ED physician ABG Interpretation ABG Interpretation: 7.384/37/67.5/21.6/-2.5 Exam Performed by: [facility] pract X-Ray Chest Interpretation Chest Xray Interpretation: IMPRESSION: At the lateral left lung base and at the right lung apex laterally there are areas of radiodensity within the lung parenchyma that most likely would represent pneumonia in this clinical circumstance. Followup to resolution is recommended given the fact that either of these areas may have underlying neoplasm within. Dictated by: Dagoberto Smith M.D. on 12/25/2016 at 13:34 Interpretation / Wet Read by: Interpret - Radiologist CT Chest Interpretation IMPRESSION: 1. No pulmonary emboli. 2. Multifocal consolidation and tree in bud nodularity within both lungs are compatible with diffuse pneumonia. Please correlate clinically to exclude an atypical cause for pneumonia. 3. Trace right-sided pleural effusion. 4. Prominent thyroid. 5. Hepatic steatosis. Dictated by: Shakir Panda M.D. on 12/25/2016 at 14:00 Study type: CT pulm angiogram Interpretation / Wet Read by: Interpret - Radiologist Re-Eval/Medical Decision Med Decision/Clinical Course 61-year-old woman presents with 2 days of increasing cough and dyspnea and is in acute respiratory distress. Respiratory rate of 40 to get thickened to the 1:30 range she is able to speak in 2-3 word sentences. Has diffuse wheezes throughout all lung menard. BiPAP was started immediately ABG reveals no significant hypercarbia. She was significantly hypoxic 88% on room air doing better on a nonrebreather at this point. She states that "I am getting tired". Labs do suggest infection she started on antibiotics steroids fluids and shows moderate improvement with BiPAP and interventions. Chest x-ray does not show a large consolidated pneumonia as would be expected with his severity of her clinical symptoms. She remains tachypneic and tachycardic possibility of PE is still in the differential so she sent to the CT scanner. CT scan confirms absence of pulmonary embolism and presence of bilateral multilobar pneumonia no evidence of metastatic disease. She was admitted to our care center and discharged 31 days ago. We will expand her antibiotic coverage to include hospital-acquired pneumonia rather than simple community-acquired pneumonia. She remained stable on BiPAP at time of transfer to the floor. Blood pressure is stable at rest she is able to sleep her heart rate is in the 110 range her respiratory rate is in the mid 20 range as soon as she is rales or moves she again is tachypneic into the 30 range even with BiPAP. Repeat ABG is pending. Patient will be transferring up to second floor shortly. Source of Hx: Old records, EMS Time of Eval: 13:45 Patient Status: Condition unchanged Re-Evaluation/Progress Note: states she is more comfortable with BiPap. RR is upper 20-40. Remains tachy. Chest with patchy infiltrates - chest x-ray is not consistent with severity of respiratory distress. We will go ahead and add a CT angiogram to make sure there is no pulmonary embolism is underlying cause for her issues. Tolerating fluids steroids antibiotics without any difficulties. Time of Eval: 15:18 Re-Evaluation/Progress Note: Rechecked the patient. She is doing significantly better. She is sleeping comfortably with a respiratory rate in the low 20s. She is tolerating BiPAP nicely. Discussed results, diagnosis, and plan for admission. All questions were addressed. Consultation : Referral / Consult Name: Rashad Alba Consulted With: Hospitalist Requested Call at: 15:17 Call Returned at: 15:22 Powder Nipper: Will see patient, Agrees with eval, Agrees with plan, Accepts admit Counseled Regarding: Diagnosis, Lab results, Need for admission Discharge & Departure Primary Impression: Diffuse pneumonia Additional Impression: Acute respiratory distress Disposition: ADMITTED TO HOSPITAL Discharge Condition All VS Reviewed: Yes Condition: Stable Referrals: Esequiel Neely DO (PCP) Crit Care Except Billable Proc Time Spent: 30-74 minutes Services Performed: Patient management by me, Time spent at bedside, Reviewing test results, Reviewing imaging, Discussing patient care, Documentation in record Scribe Attestation Portions of this note were transcribed by Bernie Nam. I, Dr. Calvillo personally performed the history, physical exam and medical decision-making; I reviewed and confirmed the accuracy of the information in the transcribed note. Signed by: Ani Mays,12/25/2016 at 1530. copies to: Esequiel Neely Shawna L MD December 25, 2016 12:43 Bernie Nam December 25, 2016 12:51
[2016-12-25] MEDS ORDERED: 0.9% Sodium Chloride 1,000 ML IV ONE (12:49)
[2016-12-25] MEDS ORDERED: MethylprednisoLONE Sodium Succinate 62.5 mg/mL 2 mL Inj IVPUSH ONE (12:50)
[2016-12-25] MEDS ORDERED: Magnesium Sulf 2 Gm/50mL Water 2 GM in IV Premix 1 EACH IV ONE (12:50)
[2016-12-25] MEDS ORDERED: cefTRIAXone Inj 2,000 MG in Dextrose 5% Minibag Plus 50 ML IV ONE (12:50)
[2016-12-25] MEDS ORDERED: Azithromycin Inj 500 MG in Dextrose 5% w/Vial Mate 250 ML IV ONE (12:50)
[2016-12-25 12:51] LABS: BASOPHILS % (AUTO) 0.4 % (0-3); EOSINOPHILS % (AUTO) 0.1 % (0-5); MONOCYTES % (AUTO) 16.2 % (4-12); Mean Corpuscular Hemoglobin 27.7 pg (27.0-35.0); Mean Corpuscular Volume 83.5 fL (81-100); NEUTROPHILS % (AUTO) 73.8 % (40-74); Platelet Count 269 bil/L (150-400)
--- NOTE | 2016-12-25 13:16 | ABG ---
DateTimeAnalyzed 13:12:00 -_ pH ____7.384 - 7.350 7.450 pCO2 ___37.1__ -mmHg 35.0 45.0 pO2 ___67.5__ -mmHg 69.0 116 HCO3- ___21.6__ -mmol/L 22.0 26.0 ABE ___-2.5__ -mmol/L -2.0 2.0 tHb ___10.2__ -g/dL O2Hb ___89.9__ -% COHb ____3.9__ -% MetHb ____0.9__ -% sO2 ___94.4__ -% FIO2 ___35.0__ -% PEEP ____6.0__ -cmH2O Set_RR ___38.0__ -b/min Drawn By btl - Date/Time Notified____ 13:16:00 -_ Oxygen Device 1 ____BIPAP - Notified By btl - Notified Whom ___Dr. Laursen - B 754 -mmHg tO2 ___12.9__ -Vol%
[2016-12-25 13:17] LABS: TROPONIN T < 0.010 ug/L (0.0-0.011)
--- NOTE | 2016-12-25 13:37 | DRSVH ---
PROCEDURE: X-RAY CHEST ONE VIEW, PORTABLE ([id number]) INDICATIONS: SHORTNESS OF BREATH TECHNIQUE: One view of the chest was acquired. COMPARISON: [facility], CT, NECK/CHEST/ABD/PEL W/CONT (P), 03/03/2013, 12:30. FINDINGS: Surgical changes and devices: None. Lungs and pleura: No pleural effusions or pneumothorax. Lungs are abnormal with what appears to be moderate pneumonia at the left lower lobe laterally, and the inspiratory volume is reduced bilaterall y. There is asymmetric increased radiodensity at the right apex,. Mediastinum: Mediastinal contours appear normal. Heart size is normal. Bones and chest wall: No suspicious bony lesions. Overlying soft tissues appear unremarkable. IMPRESSION: At the lateral left lung base and at the right lung apex laterally there are areas of rad iodensity within the lung parenchyma that most likely would represent pneumonia in this clinical circ umstance. Followup to resolution is recommended given the fact that either of these areas may have u nderlying neoplasm within. Dictated by: Dagoberto Smith M.D. on 12/25/2016 at 13:34 Approved by: Dagoberto Smith M.D. on 12/25/2016 at 13:36
[2016-12-25] MEDS ORDERED: FLUT16SP NASAL (13:52)
[2016-12-25] MEDS ORDERED: DIVA500T14 PO (14:22)
--- NOTE | 2016-12-25 15:07 | DRSVH ---
PROCEDURE: CT ANGIO CHEST PULMONARY EMBOLISM ([id number]) INDICATIONS: respiratory distress/tachycardia TECHNIQUE: After the administration of intravenous contrast, 2 mm thick sections acquired from the pulmonary api sabra to the posterior costophrenic angles. 3-dimensional maximum intensity projection (MIP) coronal a nd sagittal reformats were then acquired through the thorax. For radiation dose reduction, the follo wing was used: automated exposure control, adjustment of mA and/or kV according to patient size. COMPARISON: [facility], CT, NECK/CHEST/ABD/PEL W/CONT (P), 03/03/2013, 12:30. FINDINGS: Image quality: Diagnostic Pulmonary arteries: Pulmonary arteries are normal in size, and demonstrate no intraluminal filling d efects to suggest central pulmonary embolism. Lungs and pleura: Scattered areas of pulmonary consolidation are noted within the lingula, right mid dle lobe, superior right upper lobe, and bilateral inferior lower lobes. Additional areas of scatter ed tree in blood nodularity are seen throughout the lungs, best appreciated within the right upper lo be. There is a small right-sided pleural effusion. No lung masses evident. Evaluation for pulmonar y nodules is limited on this study, but no large pulmonary nodules are evident. Mediastinum: Heart size is normal, without pericardial effusion. No mediastinal or hilar adenopathy . Thoracic aorta is normal in caliber and enhancement. Esophagus is normal in caliber, without hiat al hernia. Bones and chest wall: No suspicious bony lesions. Ribs and thoracic spine appear intact throughout. Age-appropriate degenerative changes of the spine are present. Thyroid gland may be enlarged, but i s not adequately evaluated. This appears to be similar to previous exams. No axillary or supraclavi cular adenopathy. Abdomen: The liver may be slightly enlarged and is noted to be significantly hypodense when compared to the spleen. However, the entire liver is not imaged. Otherwise, the imaged upper abdominal solid organs appear normal in the early arterial phase of enhancement. IMPRESSION: 1. No pulmonary emboli. 2. Multifocal consolidation and tree in bud nodularity within both lungs are compatible with diffuse pneumonia. Please correlate clinically to exclude an atypical cause for pneumonia. 3. Trace right-sided pleural effusion. 4. Prominent thyroid. 5. Hepatic steatosis. Dictated by: Shakir Panda M.D. on 12/25/2016 at 14:00 Approved by: Shakir Panda M.D. on 12/25/2016 at 14:05
[2016-12-25 15:18] LABS: APPEARANCE,URINE HAZY (CLEAR,HAZY); COLOR,URINE DARK YELLOW (YELLOW); PH,URINE 5.5 (5.0-8.0)
[2016-12-25 15:19] LABS: OCCULT BLOOD,URINE TRACE (NEGATIVE)
[2016-12-25] MEDS ORDERED: Vancomycin Dose per Pharmacist XX ONE (15:40)
[2016-12-25] MEDS ORDERED: Piperacillin-Tazo 3.375 Gm Inj 3.375 GM in Dextrose 5% Minibag Plus 50 ML IV ONE (15:40)
[2016-12-25] MEDS ORDERED: levoFLOXacin Inj 750 MG in IV Premix 1 EACH IV ONE (15:40)
[2016-12-25] MEDS ORDERED: Vancomycin Inj 1,750 MG in 0.9% Sodium Chloride 500 ML IV ONE (16:00)
[2016-12-25] MEDS ORDERED: Alum-Mag Hydrox-Simeth 30 mL Suspension PO PRN (16:30)
[2016-12-25] MEDS ORDERED: Ondansetron 2 mg/mL 2 mL Inj IVPUSH PRN (16:30)
[2016-12-25] MEDS ORDERED: Polyethylene Glycol (PEG) 17 Gm Powder PO PRN (16:30)
[2016-12-25] MEDS: Heparin 5,000 Unit/mL Inj SUBQ SCH (17:23)
--- NOTE | 2016-12-25 18:39 | PCM.HPMED ---
Subjective Date of Service December 25, 2016 Primary Provider: Admitting Physician: Rashad Alba Primary Care Physician: Esequiel Neely DO Attending Physician: Rashad Alba Admit Status: From the Emergency Department Chief Complaint: Shortness of breath History of Present Illness: Ms Elmira Mcdowell is a 60-year-old lady with a history of hypertension, uncontrolled diabetes mellitus, prior CVA, breast cancer s/p bilateral mastectomies, and schizo-affective disorder with recent hospitalization in October of this year who presented to the emergency department by EMS with the complaint of shortness of breath and productive cough for the past three days. Associated symptoms include subjective fevers and chills, nasal congestion, generalized weakness, nausea, vomiting, and diarrhea. She states that her symptoms have gradually progressed and that her provider at [facility] sent her to the emergency department. She reports hearing voices but states this is chronic, unchanged and the voices are praying for her and telling her to rest. She reports good compliance with her medications and follow up since being discharged in October and otherwise states that she has been doing well. Additionally she reports dysuria, increased urinary frequency, diarrhea and abdominal tenderness. She is a current everyday tobacco smoker and reports smoking one pack per day. She denies alcohol use or drug use. In the ED, vitals: 36.5, BP 147/72, HR 121, RR 30, SpO2 93% on 8L Bipap. ABG: pH 7.384, pCO2 37.1, pO2 67.5, HCO3 21.6 on BiPap with FiO2 35%, PEEP 6, RR 38. Labs significant for a mild leukocytosis (wbc 12.3), negative troponin, elevated proBNP 830.7, procalcitonin 0.55, glucose 212, lactic acid 1.3, UA consistent with infection. EKG showed sinus tachycardia with a rate of 116, no acute ST or T wave changes. Chest xray with bilateral radiodensity of lung parenchyma but no focal consolidation. CT ANGIO negative for pulmonary embolism and revealed multifocal consolidation bilaterally compatible with diffuse pneumonia and trace right-sided pleural effusion. She was given a dose of azithromycin, ceftriaxone, zosyn, and levofloxacin as well as 125mg IV methylprednisolone. Review of Systems: A comprehensive review of systems was conducted with the patient and found to be negative except as above in the History of Present Illness. Allergies Coded Allergies: Thiothixene HCl (Verified Allergy, Unknown, painful muscle spasms in jaw , 11/18/16) thiothixene (Verified Allergy, Unknown, UNKNOWN, 11/18/16) Home Medications Anastrozole (Arimidex) 1 Mg Tablet 1 MG PO DAILY Aspirin (Aspirin) 81 Mg Tablet 81 MG PO DAILY Atorvastatin Calcium (Atorvastatin Calcium) 20 Mg Tablet 20 MG PO DAILY Cholecalciferol (Vitamin D3) 50,000 UNIT PO WEEKLY pt takes on tuesdays Divalproex ER (Divalproex ER) 500 Mg Tab.er.24h 1,000 MG PO HS Divalproex ER (Divalproex ER) 500 Mg Tab.er.24h 500 MG PO QAM Dulaglutide (Trulicity) 0.75 MG SQ WEEKLY on wednesdays Fenofibrate Nanocrystallized 145 MG PO DAILY Fluticasone Propionate 16 Gm [place].susp 2 SPRAYS NASAL DAILY Insulin Detemir 80 UNIT SUBQ QAM Metformin1,000 MG PO BIDWM Paliperidone Palmitate Inj 156 MG IM monthly last given on 10/22/16 next dose due 11/19/16 Propranolol HCl 10 MG PO BID Exam Vital Signs & I/O Vital Sign- Last 8 Hours Date Time Temp Pulse Resp B/P Pulse Ox O2 Delivery O2 Flow Rate FiO2 12/28/16 13:58 36.7 83 26 113/63 92 Nasal Cannula 4.00 12/28/16 12:38 88 24 92 Nasal Cannula 4.00 12/28/16 09:37 84 12/28/16 09:02 36.8 80 26 121/71 97 Nasal Cannula 6.00 12/28/16 08:33 87 22 98 Nasal Cannula 6.00 12/28/16 07:45 Supplement Oxygen Intake and Output- Last 8 Hour 12/28/16 Cumulative From/Thru 07:00 12/25/16 12:30 - 12/28/16 06:09 Intake Total 2450 ml 13899 ml Output Total 800 ml 2125 ml Balance 1650 ml 93350 ml Intake Oral 1200 ml 5215 ml IV Total 1250 ml 8028 ml Output Urine Total 300 ml 1625 ml Urine/Stool Mix 500 ml 500 ml # Voids 3 19 # Bowel Movements 11 Lab & Micro Results Laboratory Tests Test 12/28/16 05:10 12/28/16 08:25 White Blood Count 7.3th/mm3 (3.8-10.1) Red Blood Count 3.66mil/mm3 (3.90-5.20) Hemoglobin 10.0g/dL (12.0-15.6) Hematocrit 32.2% (35.0-46.0) Mean Corpuscular Volume 88.0fL (81-100) Mean Corpuscular Hemoglobin 27.3pg (27.0-35.0) Mean Corpuscular Hemoglobin Concent 31.1% (32.0-37.0) Red Cell Distribution Width 14.8% (12.3-15.4) Platelet Count 271bil/L (150-400) Neutrophils (%) (Auto) 69.9% (40-74) Lymphocytes (%) (Auto) 18.6% (14-46) Monocytes (%) (Auto) 10.0% (4-12) Eosinophils (%) (Auto) 0.1% (0-5) Basophils (%) (Auto) 0.3% (0-3) Sodium Level 147mEq/L (134-144) Potassium Level 4.0mEq/L (3.5-5.2) Chloride Level 108mEq/L (97-108) Carbon Dioxide Level 28mmol/L (18-29) Blood Urea Nitrogen 13mg/dL (8-27) Creatinine 0.44mg/dL (0.57-1.00) Estimat Glomerular Filtration Rate 208mL/min (>59) Glucose Level 234mg/dL (60-99) Calcium Level 8.9mg/dL (8.5-10.1) Phosphorus Level 2.8mg/dL (2.5-4.9) Magnesium Level 1.8mg/dL (1.6-2.6) Total Bilirubin 0.3mg/dL (0.0-1.2) Aspartate Amino Transf (AST/SGOT) 37U/L (0-50) Alanine Aminotransferase (ALT/SGPT) 70U/L (0-32) Alkaline Phosphatase 132U/L (25-165) Total Protein 5.2g/dL (6.4-8.4) Albumin 2.6g/dL (3.4-5.0) Vancomycin Level Trough 10.3mcg/mL Microbiology 12/25/16 Blood Culture - Preliminary, Resulted No growth at 2 days; culture examined... 12/26/16 Campylobacter (PCR) - Final, Complete Not Detected 12/26/16 Clostridium difficile Toxin A&B (M) - Final, Complete Not Detected 12/26/16 Plesiomonas shigelloides (PCR) - Final, Complete Not Detected 12/26/16 Salmonella (PCR)(VIJAY) - Final, Complete Not Detected 12/26/16 Yersinia enterocolitica (PCR) - Final, Complete Not Detected 12/26/16 Vibrio Species (PCR) - Final, Complete Not Detected 12/26/16 Vibrio Cholerae (PCR) - Final, Complete Not Detected 12/26/16 Enteroaggregative E. coli (PCR) - Final, Complete Not Detected 12/26/16 Enteropathogenic E. coli (PCR) - Final, Complete Not Detected 12/26/16 Enterotoxigenic E. coli (PCR) - Final, Complete Not Detected 12/26/16 E. coli Shiga-like Toxin (PCR) - Final, Complete Not Detected 12/26/16 Escherichia coli 0157 (PCR) - Final, Complete Not Detected 12/26/16 Enteroinvasive E. coli/Shigella PCR - Final, Complete Not Detected 12/26/16 Cryptosporidium (PCR) - Final, Complete Not Detected 12/26/16 Cyclospora cayetanensis (PCR) - Final, Complete Not Detected 12/26/16 Entamoeba histolytica (PCR) - Final, Complete Not Detected 12/26/16 Giardia lamblia (PCR) - Final, Complete Not Detected 12/26/16 Adenovirus Type F 40/41 (PCR) - Final, Complete Not Detected 12/26/16 Astrovirus (PCR) - Final, Complete Not Detected 12/26/16 Norovirus (PCR) - Final, Complete Not Detected 12/26/16 Rotavirus A (PCR) - Final, Complete Not Detected 12/26/16 Sapovirus I/II/IV/V (PCR) - Final, Complete 12/26/16 Adenovirus DNA (PCR) - Final, Complete Not Detected 12/26/16 Coronavirus 229E PCR - Final, Complete Not Detected 12/26/16 Coronavirus HKU1 PCR - Final, Complete Not Detected 12/26/16 Coronavirus NL63 PCR - Final, Complete Not Detected 12/26/16 Coronavirus OC43 PCR - Final, Complete Not Detected 12/26/16 Influenza Type A (PCR) - Final, Complete Not Detected 12/26/16 Influenza Type B (PCR) - Final, Complete Not Detected 12/26/16 Human Metapneumovirus (PCR) (VIJAY) - Final, Complete Not Detected 12/26/16 Rhinovirus (PCR)(VIJAY) - Final, Complete Not Detected 12/26/16 Parainfluenza Virus Type 1 (PCR) - Final, Complete Not Detected 12/26/16 Parainfluenza Virus Type 2 (PCR) - Final, Complete Not Detected 12/26/16 Parainfluenza Virus Type 3 (PCR) - Final, Complete Not Detected 12/26/16 Parainfluenza Virus Type 4 (NAAT) - Final, Complete Not Detected 12/26/16 Respiratory Syncytial Virus (PCR)IN - Final, Complete Not Detected 12/26/16 Chlamydia pneumoniae (PCR) - Final, Complete Not Detected 12/26/16 Mycoplasma pneumoniae DNA Detection - Final, Complete 12/25/16 Streptococcus pneumoniae Ag Screen - Final, Complete Result Diagram: 12/28/1650912/28/16509 Review of Systems: Constitutional: Negative, except as otherwise mentioned in the history above. Ophthalmologic: Negative, except as otherwise mentioned in the history above. Cardiovascular: Negative, except as otherwise mentioned in the history above. Respiratory: Negative, except as otherwise mentioned in the history above. Gastrointestinal: Negative, except as otherwise mentioned in the history above. Genitourinary: Negative, except as otherwise mentioned in the history above. Musculoskeletal: Negative, except as otherwise mentioned in the history above. Neurological: Negative, except as otherwise mentioned in the history above. Psychiatric: Negative, except as otherwise mentioned in the history above. Hematologic/Lymphatic: Negative, except as otherwise mentioned in the history above. Allergic/Immunologic: Negative, except as otherwise mentioned in the history above. PMH Schizoaffective disorder/possible schizophrenia Hospitalized for schizo-affective disorder from 11/18-11/24/2016. Bipolar disorder, depression Diabetes mellitus, uncontrolled CVA Hypertension Hyperlipidemia Hypertriglyceridemia Tardive dyskinesia Overactive bladder Breast cancer Poor medication compliance Surgical History Bilateral mastectomy Thyroid biopsy, negative Family History Mother at age 58 of lung cancer, father in his 70s with an accidental overdose of narcotics. Patient reports family history of diabetes and cancer. Social History Hx Alcohol Use: No Hx Substance Use: Yes Hx Tobacco Use: Yes Smoking Status: Current Every Day Smoker (1 pack per day) Living Arrangement: Alone Exam Vital Signs Vital Sign - Last Date Time Temp Pulse Resp B/P Pulse Ox O2 Delivery O2 Flow Rate FiO2 12/25/16 14:30 111 20 134/71 93 12/25/16 13:32 35 12/25/16 12:30 36.5 8 Exam General: Well-developed, female in mild respiratory distress, BiPap mask in place, speaking in short sentences, appropriately interactive HEENT: Normocephalic, atraumatic. External ears without defect. Pupils equal, round, and reactive to light and accommodation. Anicteric sclerae. Oral mucosa pink/moist. Neck: Supple, nontender. No jugular venous distension. No bruits. No lymphadenopathy or thyromegaly. Cardiovascular: Tachycardic, regular rhythm with no murmurs, rubs, or gallops appreciated Pulmonary: Poor air movement, distant coarse lung sounds with mild diffuse crackles, no wheezing. Mild respiratory distress. No use of accessory muscles. Abdomen: Bowel tones present. Soft, diffusely tender to palpation florian in right upper quadrant, mildly nondistended. No hepatosplenomegaly or masses appreciated. Extremities: No clubbing, cyanosis, edema, or lymphadenopathy appreciated. Skin: Normal temperature, turgor, and texture; no rash, ulcers, or subcutaneous nodules appreciated. Neurological: Cranial nerves grossly intact. No focal deficit. Tardive dyskinesia of left hand. Psychiatric: Normal mood and affect. Reports auditory hallucinations. Alert and oriented to person, place, and time. Lab and Diagnostics Labs Laboratory Tests Test 12/25/16 12:30 12/25/16 13:00 12/25/16 15:06 White Blood Count 12.3th/mm3 (3.8-10.1) Red Blood Count 4.01mil/mm3 (3.90-5.20) Hemoglobin 11.1g/dL (12.0-15.6) Hematocrit 33.5% (35.0-46.0) Mean Corpuscular Volume 83.5fL (81-100) Mean Corpuscular Hemoglobin 27.7pg (27.0-35.0) Mean Corpuscular Hemoglobin Concent 33.1% (32.0-37.0) Red Cell Distribution Width 13.9% (12.3-15.4) Platelet Count 269bil/L (150-400) Neutrophils (%) (Auto) 73.8% (40-74) Lymphocytes (%) (Auto) 9.2% (14-46) Monocytes (%) (Auto) 16.2% (4-12) Eosinophils (%) (Auto) 0.1% (0-5) Basophils (%) (Auto) 0.4% (0-3) Sodium Level 137mEq/L (134-144) Potassium Level 3.8mEq/L (3.5-5.2) Chloride Level 100mEq/L (97-108) Carbon Dioxide Level 22mmol/L (18-29) Blood Urea Nitrogen 12mg/dL (8-27) Creatinine 0.55mg/dL (0.57-1.00) Estimat Glomerular Filtration Rate 160mL/min (>59) Glucose Level 212mg/dL (60-99) Calcium Level 9.7mg/dL (8.5-10.1) Total Bilirubin 0.9mg/dL (0.0-1.2) Aspartate Amino Transf (AST/SGOT) 42U/L (0-50) Alanine Aminotransferase (ALT/SGPT) 63U/L (0-32) Alkaline Phosphatase 118U/L (25-165) Troponin T < 0.010ug/L (0.0-0.011) Pro-B-Type Natriuretic Peptide 830.7pg/mL (0-287) Total Protein 7.5g/dL (6.4-8.4) Albumin 3.4g/dL (3.4-5.0) Procalcitonin 0.55ng/mL (0.00-0.08) Lactic Acid Level 1.3mmol/L (0.4-2.0) Urine Color Dark yellow (YELLOW) Urine Appearance Hazy (CLEAR,HAZY) Urine pH 5.5 (5.0-8.0) Urine Specific Eldred 1.015 (1.003-1.035) Urine Protein 30mg/dL (NEG,TRACE) Urine Glucose (UA) 100mg/dL (NEGATIVE) Urine Ketones Negativemg/dL (NEGATIVE) Urine Occult Blood Trace (NEGATIVE) Urine Nitrite Positive (NEGATIVE) Urine Bilirubin Negative (NEGATIVE) Urine Urobilinogen 2.0mg/dL (NORMAL) Urine Leukocyte Esterase Trace (NEGATIVE) Urine RBC 0-2/hpf (0-2) Urine WBC 11-50/hpf (0-5) Urine Epithelial Cells Occasional/hpf (NONE-MOD) Urine Crystals None seen (NONE SEEN) Urine Bacteria Many/hpf (NONE-FEW) Urine Hyaline Casts Occasional/lpf (NONE) Urine Granular Casts Occasional (NONE SEEN) Urine Waxy Casts None seen (NONE SEEN) Urine Red Blood Cell Casts None seen (NONE SEEN) Urine White Blood Cell Casts None seen (NONE SEEN) Urine Mucus Present (None Seen) Urine Trichomonas None seen (NONE SEEN) Urine Yeast None (NONE SEEN) Urinalysis Comment None Urine Culture Reflexed Indicated Microbiology 12/25/16 Blood Culture- pending 12/25/16 Urine Culture- pending Result Diagram: 12/28/1650912/28/16509 X-Rays, CTs and MRIs CT ANGIO CHEST PULMONARY EMBOLISM IMPRESSION: 1. No pulmonary emboli. 2. Multifocal consolidation and tree in bud nodularity within both lungs are compatible with diffuse pneumonia. Please correlate clinically to exclude an atypical cause for pneumonia. 3. Trace right-sided pleural effusion. 4. Prominent thyroid. 5. Hepatic steatosis. Dictated and approved by: Shakir Panda M.D. on 12/25/2016 at 14:00 X-RAY CHEST ONE VIEW, PORTABLE IMPRESSION: At the lateral left lung base and at the right lung apex laterally there are areas of radiodensity within the lung parenchyma that most likely would represent pneumonia in this clinical circumstance. Followup to resolution is recommended given the fact that either of these areas may have underlying neoplasm within. Dictated and approved by: Dagoberto Smith M.D. on 12/25/2016 at 13:34 Additional Diagnostics: AB DateTimeAnalyzed 13:12:00 -_ pH ____7.384 - 7.350 7.450 pCO2 ___37.1__ -mmHg 35.0 45.0 pO2 ___67.5__ -mmHg 69.0 116 HCO3- ___21.6__ -mmol/L 22.0 26.0 ABE ___-2.5__ -mmol/L -2.0 2.0 tHb ___10.2__ -g/dL O2Hb ___89.9__ -% COHb ____3.9__ -% MetHb ____0.9__ -% sO2 ___94.4__ -% FIO2 ___35.0__ -% PEEP ____6.0__ -cmH2O Set_RR ___38.0__ -b/min Drawn By btl - Date/Time Notified____ 13:16:00 -_ Oxygen Device 1 ____BIPAP - Notified By btl - Notified Whom ___Dr. Calvillo - B 754 -mmHg tO2 ___12.9__ -Vol% Assessment & Plan 60-year-old lady with a history of hypertension, uncontrolled diabetes mellitus , prior CVA, and schizo-affective disorder with recent hospitalization in October of this year who presented to the emergency department by EMS with the complaint of shortness of breath and productive cough for the past three days. Admitted for acute respiratory distress and sepsis secondary to bilateral pneumonia and UTI. 1. Sepsis, acute. Present on admission. Active -Meets criteria with: leukocytosis, tachycardia, tachypnea and suspected pulmonary as well as urinary source of infection. -CT angio negative for pulmonary embolism but revealed multifocal consolidation bilaterally. -Received 1L of NS, doses of azithromycin, ceftriaxone, levofloxacin, and 125mg IV methylprednisolone. in the ER. -Placed on BiPap for increasing respiratory distress and hypoxia. -Continue IV fluids -Continue Zosyn, levofloxacin and vancomycin. -MRSA screen pending. 2. Acute respiratory distress. Present on admission. Active. -Likely secondary to pneumonia with concern for possible exacerbation of COPD. No known diagnosis of COPD but patient is pack per day smoker with increased sputum and chronic cough. -Continue BiPap, maintain O2 sats of 88-92%. -Continue zosyn, levofloxacin and vancomycin. -Duonebs q4h while awake 3. Bilateral pneumonia, acute. Present on admission. Active -Recent admission in October, possibly health-care acquired. -Chest xray and CT angio with evidence consistent with diffuse pneumonia. -Blood cultures, respiratory viral PCR, legionella/strep pneumoniae antigens- pending -Antibiotics, duonebs as above. 4. Urinary tract infection, acute. Present on admission. Active -UA consistent with infection with urine culture pending. -Antibiotics as above. 5. Reported diarrhea, acute on chronic. Present on admission. Active -Check stool PCR and if negative will treat with Lomotil prn 6. Diabetes mellitus, chronic, poorly controlled. Present on admission. Active. -HbA1c 15.1 on 11/19/16. -Serum glucose 212 -Hold home metformin, dulaglutide and Insulin detemir -High dose correctional insulin lispro 7. Hypertension, chronic. Present on admission. Presumed stable. -Continue home dose Propranolol 8. Hyperlipidemia, chronic. Present on admission. Presumed stable. -Continue home dose fenofibrate and atorvastatin, daily aspirin 9. Schizoaffective disorder, chronic. Present on admission. Presumed stable. -Psychiatric admission in October of this year with auditory hallucinations. Patient reports good follow up since discharge and continues to take her medications. -She does have tardive dyskinesia, likely related to medications. -Continue home divalproex ER, 1,000mg in the evening and 500mg in the morning. -Consider consult to Psychiatry 10. History of breast cancer s/p bilateral mastectomy. Present on admission. Presumed stable. -Continue home Arimidex PRN: Acetaminophen-fever/headache/mild/moderate pain Antiemetics, as needed Bowel regimen, as needed. Disposition: Patient admitted under inpatient status with expected length of stay > 2 midnights for severity of present symptoms, complexities of treatment plan and risk for adverse event. Pain Evaluation: Adequate Pain Control VTE Prophylaxis: Sub-Q Heparin (Unfractionated) Resuscitation Status: CPR: Attempt Resuscitation Attending Statement The patient was seen and examined together with Resident/House-Staff on 12/25/16 and I agree with the history, exam and plan as outlined in the note above. Bita Sauceda DO December 25, 2016 16:33 Rashad Alba December 28, 2016 14:39
--- NOTE | 2016-12-25 18:45 | CONS ---
[address] [address] CONSULTATION REPORT PATIENT: QUINTEN GUEVARA : 1955 MR#: [id number] ADMIT: 12/25/2016 JOB ID: [id number] DATE OF SERVICE: 12/25/2016 REQUESTING PHYSICIAN: Rashad Alba MD. REASON FOR CONSULTATION: Pneumonia and hypoxemic respiratory failure. HISTORY OF PRESENT ILLNESS: The patient is a 61-year-old female who was in her usual state of health until four days ago. At that time, she developed a cough subsequently productive of clear sputum, then developed increasing shortness of breath, shaking rigors. No apparent fevers. Associated with chills and sweats. The patient noted some wheezing, weakness. Slept poorly. Patient does not have a history of prior lung disease. However, was treated for pneumonia a number of years in the past. Recovered completely. The patient was hospitalized for schizoaffective disorder for about approximately one week's time, being discharged November 24 of this year. She was treated at that time for a probable urinary tract infection, receiving Keflex. PAST MEDICAL HISTORY: 1. Hypertension, not treated. 2. Hyperlipidemia. 3. Diabetes mellitus, insulin dependent. 4. TIA. 5. Schizoaffective disorder. 6. History of breast cancer. Apparently under remission. REVIEW OF SYSTEMS: No headaches, no visual disturbances, no sore throat. No problems swallowing. No chest pain. No arrhythmias, no dizziness. No abdominal pain, diarrhea, constipation. No rash. No arthralgias. No edema. MEDICATIONS AT HOME: 1. Anastrozole. 2. Atorvastatin. 3. Fenofibrate. 4. Propranolol. 5. Aspirin. 6. Divalproex. 7. Paliperidone. 8. Fluticasone nasal spray. 9. Dulaglutide. 10. Insulin detemir. 11. Metformin. 12. Vitamin D3. 13. Oxybutynin. ALLERGIES: Include THIOTHIXENE. SOCIAL HISTORY: Patient lives at home. Has a safety consultant for her psych issues. Hobbies: None involving exposure. Smoking history: Patient has smoked one pack a day for 30 years and continues to smoke. Alcohol: Unknown. OBJECTIVE: Temperature at noon was 36.5. Pulse 111, respiratory rate 20, though has been as high as 40. Blood pressure 134/71. O2 sat on BiPAP, unknown settings, show an O2 sat of 93%. General appearance: Well-developed, well-nourished female in no acute distress. Seemingly breathing relatively comfortably as long as not interrogated. Eyes: Conjunctivae pink and moist. No scleral icterus. Nose and throat could not be examined. Chest: Fairly good breath sounds. Bilateral crackles, more so on the right. Bilateral upper lobe wheezes. No use of accessory muscles. No chest wall tenderness. Heart: Regular rhythm. Heart tones obscured by pulmonary adventitial sounds. Abdomen soft. Nondistended. Nontender. Bowel tones present. Extremities: No clubbing, cyanosis, nor pretibial edema. Skin: No rashes. Chest x-ray shows scattered opacities, more infiltrative. Some consolidation at pleural areas, lower right, somewhat lower left, with a largest infiltrate in the right upper lung field. LABORATORY DATA: Shows a white count of 12,300 with relatively normal differential except for a mild monocytosis. Hemoglobin 11.1. Platelet count 269,000. Sodium 137, potassium 3.8, chloride 100, CO2 is 20, BUN 12, creatinine 0.5, glucose elevated at 212. Lactic acid 1.3. Calcium 9.7 with albumin of 3.4. AST normal at 42. ALT mildly elevated at 63. Alkaline phos normal at 118. BNP significantly elevated at 830. Procalcitonin 0.55. Blood cultures and urine cultures are pending. ASSESSMENT: 1. Probable healthcare-associated pneumonia. The patient was hospitalized in a psychiatric unit for about a week, last about 30 days ago. Therefore, she is at some increased risk for gram- negatives as well as Staph. Will be covered with broad-spectrum antibiotics including vancomycin, Zosyn, and levofloxacin. Blood gases on BiPAP of unknown IPAP with an EPAP of 6, shows a pO2 of 67, a pCO2 of 37, pH 7.38. We can continue the BiPAP mask, but if he becomes ill-tolerated, then might consider utilizing high-flow oxygen system as that would supply a bit of PEEP, maybe 3 or 4 mm at most with high oxygen concentration, one could get may be 60, 70% out of that, but with normal ventilation, she might tolerate that better. 2. Might consider using nebulized bronchodilators, specifically DuoNeb with her history of wheezing and the presence of wheezing on current exam suggesting some degree of bronchospasm. Might have Respiratory Therapy try one or two treatments and if effective continue on or otherwise use it just on a p.r.n. basis. 3. Hypoxemic respiratory failure. Presumably secondary to pulmonary infection. However, it is unclear what her underlying lung status is. Has a long smoking history and might have some significant COPD. That remains to be determined. 4. History of breast cancer. Would just keep in mind that with her somewhat fine nodular pattern on the right this might represent lymphangitic spread though this is usually well distributed throughout both lung menard and this seems to be mostly right lung. Thank you so much, Dr. Alba, for asking us to see this most interesting individual. Will follow her respiratory status closely along with you.
[2016-12-25] MEDS ORDERED: Glucose 40% Oral Gel 15 Gm Tube PO PRN (19:35)
--- NOTE | 2016-12-25 19:40 | PCM.CONPHA ---
Subjective Date of Service: December 25, 2016 Shortness of breath Objective Vital Signs Date Time Temp Pulse Resp B/P Pulse Ox O2 Delivery O2 Flow Rate FiO2 12/25/16 17:52 117 12/25/16 17:34 36.7 110 40 146/81 94 BiPAP 35 12/25/16 17:34 CPAP/BIPAP 12/25/16 17:32 109 23 130/66 95 BiPAP 12/25/16 17:25 112 12/25/16 17:15 40 95 35 12/25/16 16:15 110 24 133/63 97 BiPAP 12/25/16 14:30 111 20 134/71 93 12/25/16 13:32 40 95 35 12/25/16 12:30 36.5 121 30 147/72 93 8 Weight (Kilograms): 88.100 Height (Feet): 5 Height (Inches): 4.00 Test 12/25/16 12:30 12/25/16 13:00 12/25/16 15:06 White Blood Count 12.3th/mm3 (3.8-10.1) Red Blood Count 4.01mil/mm3 (3.90-5.20) Hemoglobin 11.1g/dL (12.0-15.6) Hematocrit 33.5% (35.0-46.0) Mean Corpuscular Volume 83.5fL (81-100) Mean Corpuscular Hemoglobin 27.7pg (27.0-35.0) Mean Corpuscular Hemoglobin Concent 33.1% (32.0-37.0) Red Cell Distribution Width 13.9% (12.3-15.4) Platelet Count 269bil/L (150-400) Neutrophils (%) (Auto) 73.8% (40-74) Lymphocytes (%) (Auto) 9.2% (14-46) Monocytes (%) (Auto) 16.2% (4-12) Eosinophils (%) (Auto) 0.1% (0-5) Basophils (%) (Auto) 0.4% (0-3) Sodium Level 137mEq/L (134-144) Potassium Level 3.8mEq/L (3.5-5.2) Chloride Level 100mEq/L (97-108) Carbon Dioxide Level 22mmol/L (18-29) Blood Urea Nitrogen 12mg/dL (8-27) Creatinine 0.55mg/dL (0.57-1.00) Estimat Glomerular Filtration Rate 160mL/min (>59) Glucose Level 212mg/dL (60-99) Calcium Level 9.7mg/dL (8.5-10.1) Total Bilirubin 0.9mg/dL (0.0-1.2) Aspartate Amino Transf (AST/SGOT) 42U/L (0-50) Alanine Aminotransferase (ALT/SGPT) 63U/L (0-32) Alkaline Phosphatase 118U/L (25-165) Troponin T < 0.010ug/L (0.0-0.011) Pro-B-Type Natriuretic Peptide 830.7pg/mL (0-287) Total Protein 7.5g/dL (6.4-8.4) Albumin 3.4g/dL (3.4-5.0) Procalcitonin 0.55ng/mL (0.00-0.08) Lactic Acid Level 1.3mmol/L (0.4-2.0) Urine Color Dark yellow (YELLOW) Urine Appearance Hazy (CLEAR,HAZY) Urine pH 5.5 (5.0-8.0) Urine Specific [place] 1.015 (1.003-1.035) Urine Protein 30mg/dL (NEG,TRACE) Urine Glucose (UA) 100mg/dL (NEGATIVE) Urine Ketones Negativemg/dL (NEGATIVE) Urine Occult Blood Trace (NEGATIVE) Urine Nitrite Positive (NEGATIVE) Urine Bilirubin Negative (NEGATIVE) Urine Urobilinogen 2.0mg/dL (NORMAL) Urine Leukocyte Esterase Trace (NEGATIVE) Urine RBC 0-2/hpf (0-2) Urine WBC 11-50/hpf (0-5) Urine Epithelial Cells Occasional/hpf (NONE-MOD) Urine Crystals None seen (NONE SEEN) Urine Bacteria Many/hpf (NONE-FEW) Urine Hyaline Casts Occasional/lpf (NONE) Urine Granular Casts Occasional (NONE SEEN) Urine Waxy Casts None seen (NONE SEEN) Urine Red Blood Cell Casts None seen (NONE SEEN) Urine White Blood Cell Casts None seen (NONE SEEN) Urine Mucus Present (None Seen) Urine Trichomonas None seen (NONE SEEN) Urine Yeast None (NONE SEEN) Urinalysis Comment None Urine Culture Reflexed Indicated Assessment/Plan Assessment/Plan Vanco per Rx Indications: Sepsis/PNA/UTI WBC Procal: 0.55 Vd 53, eCrCl >110, Javon 0.1.1 LD 1750mg then start 1000mg q8h for now, to allow 1st trough before 4th dose (@ 1730 tomorrow Goal Trough 15 -20; eTrough @ SS 16 Vasquez Chowdhury PharmD December 25, 2016 19:40
[2016-12-25] MEDS: Divalproex (QD) 500 mg ER24 Tablet PO SCH (21:25)
[2016-12-25] MEDS: 0.9% Sodium Chloride 1,000 ML IV SCH (21:25)
[2016-12-25] MEDS: Insulin LISPRO 300 Unit/3 mL Inj SUBQ SCH (21:36)
[2016-12-25] MEDS: Albuterol-Ipratropium 3 mL Inhalation Solution NEB SCH (22:19)
[2016-12-26] VITALS (13 sets, daily range): BP systolic 82–148; BP diastolic 36–69; PULSE 96–124; RESP 22–44; O2SAT 93–98
[2016-12-26] MEDS: Heparin 5,000 Unit/mL Inj SUBQ SCH ×3 (01:02→17:05)
[2016-12-26] MEDS: Piperacillin-Tazo 3.375 Gm Inj 3.375 GM in Dextrose 5% Minibag Plus 50 ML IV SCH ×3 (01:03→17:08)
[2016-12-26] MEDS: Vancomycin 1 Gm/200 mL NS Premix IV SCH ×3 (01:50→18:08)
[2016-12-26] MEDS ORDERED: 0.9% Sodium Chloride 500 ML IV ONE (03:00)
[2016-12-26 03:21] LABS: BASOPHILS % (AUTO) 0.3 % (0-3); EOSINOPHILS % (AUTO) 0 % (0-5); MONOCYTES % (AUTO) 12.1 % (4-12); Mean Corpuscular Hemoglobin 27.9 pg (27.0-35.0); Mean Corpuscular Volume 85.6 fL (81-100); NEUTROPHILS % (AUTO) 76.1 % (40-74); Platelet Count 237 bil/L (150-400)
[2016-12-26] MEDS: Albuterol-Ipratropium 3 mL Inhalation Solution NEB SCH ×4 (08:37→20:09)
[2016-12-26] MEDS: 0.9% Sodium Chloride 1,000 ML IV SCH ×2 (09:07→17:08)
[2016-12-26] MEDS: Vancomycin Dose per Pharmacist XX SCH (09:07)
[2016-12-26] MEDS: levoFLOXacin Inj 500 MG in IV Premix 1 EACH IV SCH (09:11)
[2016-12-26] MEDS: Divalproex (QD) 500 mg ER24 Tablet PO SCH ×2 (09:13→21:21)
[2016-12-26] MEDS: Insulin LISPRO 300 Unit/3 mL Inj SUBQ SCH ×4 (09:16→21:47)
--- NOTE | 2016-12-26 12:56 | PCM.PNMED ---
Subjective Date of Service December 26, 2016 Subjective Ms Elmira Mcdowell is a 60-year-old lady with a history of hypertension, uncontrolled diabetes mellitus, prior CVA, breast cancer s/p bilateral mastectomies, and schizo-affective disorder with recent psych admission in October of this year who presented to the emergency department by EMS with the complaint of shortness of breath and productive cough for the past three days. Admitted for acute respiratory distress and sepsis secondary to bilateral pneumonia and UTI. Hospital day #2. Overnight patient noted to be anxious and not tolerating Bipap. She was given IV lorazepam and contniued on Bipap without issue. She became hypotensive following the lorazepam which resolved with IV fluids. Today she is doing well on 10L oxymask, with sats in low to mid 90s. She states that she is breathing better and denies chest pain, fever, chills, nausea or vomiting. Exam Vital Signs Vital Sign - Last Date Time Temp Pulse Resp B/P Pulse Ox O2 Delivery O2 Flow Rate FiO2 12/26/16 05:24 106 12/26/16 02:46 36.5 22 88/49 97 BiPAP 35 12/25/16 22:44 7.00 Intake and Output 12/25/16 12/25/16 12/26/16 Cumulative From/Thru 15:00 23:00 07:00 12/25/16 12:30 - 12/26/16 06:10 Intake Total 1000 ml 1421 ml 2421 ml Balance 1000 ml 1421 ml 2421 ml Intake Oral 0 ml 0 ml IV Total 1000 ml 1421 ml 2421 ml # Voids 2 2 # Bowel Movements 2 2 Exam General: Well-developed, female in no acute distress, oxymask in place, appropriately interactive HEENT: Normocephalic, atraumatic. Oral mucosa pink/moist. Neck: Supple, nontender. No lymphadenopathy or thyromegaly. Cardiovascular: Tachycardic, regular rhythm with no murmurs, rubs, or gallops appreciated Pulmonary: Poor air movement, coarse lung sounds with mild diffuse crackles, no wheezing. No use of accessory muscles. Abdomen: Bowel tones present. Soft, diffusely tender to palpation florian in right upper quadrant, nondistended. Extremities: No clubbing, cyanosis, edema, or lymphadenopathy appreciated. Skin: Normal temperature, turgor, and texture; no rash, ulcers, or subcutaneous nodules appreciated. Neurological: Cranial nerves grossly intact. No focal deficit. Tardive dyskinesia of left hand. Psychiatric: Normal mood and affect. Reports auditory hallucinations. Alert and oriented to person, place, and time. IVs and Medications Medications Reviewed: Medications were reviewed in detail Lab and Diagnostics Laboratory Tests Test 12/25/16 12:30 12/25/16 13:00 12/25/16 15:06 12/25/16 19:02 White Blood Count 12.3th/mm3 (3.8-10.1) Red Blood Count 4.01mil/mm3 (3.90-5.20) Hemoglobin 11.1g/dL (12.0-15.6) Hematocrit 33.5% (35.0-46.0) Mean Corpuscular Volume 83.5fL (81-100) Mean Corpuscular Hemoglobin 27.7pg (27.0-35.0) Mean Corpuscular Hemoglobin Concent 33.1% (32.0-37.0) Red Cell Distribution Width 13.9% (12.3-15.4) Platelet Count 269bil/L (150-400) Neutrophils (%) (Auto) 73.8% (40-74) Lymphocytes (%) (Auto) 9.2% (14-46) Monocytes (%) (Auto) 16.2% (4-12) Eosinophils (%) (Auto) 0.1% (0-5) Basophils (%) (Auto) 0.4% (0-3) Sodium Level 137mEq/L (134-144) Potassium Level 3.8mEq/L (3.5-5.2) Chloride Level 100mEq/L (97-108) Carbon Dioxide Level 22mmol/L (18-29) Blood Urea Nitrogen 12mg/dL (8-27) Creatinine 0.55mg/dL (0.57-1.00) Estimat Glomerular Filtration Rate 160mL/min (>59) Glucose Level 212mg/dL (60-99) Calcium Level 9.7mg/dL (8.5-10.1) Total Bilirubin 0.9mg/dL (0.0-1.2) Aspartate Amino Transf (AST/SGOT) 42U/L (0-50) Alanine Aminotransferase (ALT/SGPT) 63U/L (0-32) Alkaline Phosphatase 118U/L (25-165) Troponin T < 0.010ug/L (0.0-0.011) Pro-B-Type Natriuretic Peptide 830.7pg/mL (0-287) Total Protein 7.5g/dL (6.4-8.4) Albumin 3.4g/dL (3.4-5.0) Procalcitonin 0.55ng/mL (0.00-0.08) Lactic Acid Level 1.3mmol/L (0.4-2.0) Urine Color Dark yellow (YELLOW) Urine Appearance Hazy (CLEAR,HAZY) Urine pH 5.5 (5.0-8.0) Urine Specific [place] 1.015 (1.003-1.035) Urine Protein 30mg/dL (NEG,TRACE) Urine Glucose (UA) 100mg/dL (NEGATIVE) Urine Ketones Negativemg/dL (NEGATIVE) Urine Occult Blood Trace (NEGATIVE) Urine Nitrite Positive (NEGATIVE) Urine Bilirubin Negative (NEGATIVE) Urine Urobilinogen 2.0mg/dL (NORMAL) Urine Leukocyte Esterase Trace (NEGATIVE) Urine RBC 0-2/hpf (0-2) Urine WBC 11-50/hpf (0-5) Urine Epithelial Cells Occasional/hpf (NONE-MOD) Urine Crystals None seen (NONE SEEN) Urine Bacteria Many/hpf (NONE-FEW) Urine Hyaline Casts Occasional/lpf (NONE) Urine Granular Casts Occasional (NONE SEEN) Urine Waxy Casts None seen (NONE SEEN) Urine Red Blood Cell Casts None seen (NONE SEEN) Urine White Blood Cell Casts None seen (NONE SEEN) Urine Mucus Present (None Seen) Urine Trichomonas None seen (NONE SEEN) Urine Yeast None (NONE SEEN) Urinalysis Comment None Urine Culture Reflexed Indicated Urine Legionella pneumophilia Ag Negative (Negative) Test 12/26/16 03:18 White Blood Count 7.8th/mm3 (3.8-10.1) Red Blood Count 3.48mil/mm3 (3.90-5.20) Hemoglobin 9.7g/dL (12.0-15.6) Hematocrit 29.8% (35.0-46.0) Mean Corpuscular Volume 85.6fL (81-100) Mean Corpuscular Hemoglobin 27.9pg (27.0-35.0) Mean Corpuscular Hemoglobin Concent 32.6% (32.0-37.0) Red Cell Distribution Width 14.1% (12.3-15.4) Platelet Count 237bil/L (150-400) Neutrophils (%) (Auto) 76.1% (40-74) Lymphocytes (%) (Auto) 11.2% (14-46) Monocytes (%) (Auto) 12.1% (4-12) Eosinophils (%) (Auto) 0% (0-5) Basophils (%) (Auto) 0.3% (0-3) Sodium Level 144mEq/L (134-144) Potassium Level 4.3mEq/L (3.5-5.2) Chloride Level 108mEq/L (97-108) Carbon Dioxide Level 22mmol/L (18-29) Blood Urea Nitrogen 16mg/dL (8-27) Creatinine 0.50mg/dL (0.57-1.00) Estimat Glomerular Filtration Rate 179mL/min (>59) Glucose Level 252mg/dL (60-99) Lactic Acid Level 1.0mmol/L (0.4-2.0) Calcium Level 8.6mg/dL (8.5-10.1) Total Bilirubin 0.3mg/dL (0.0-1.2) Aspartate Amino Transf (AST/SGOT) 40U/L (0-50) Alanine Aminotransferase (ALT/SGPT) 56U/L (0-32) Alkaline Phosphatase 92U/L (25-165) Total Protein 5.5g/dL (6.4-8.4) Albumin 2.8g/dL (3.4-5.0) Procalcitonin 0.50ng/mL (0.00-0.08) Result Diagram: 12/26/1631712/26/16317 X-Rays, CTs and MRIs CT ANGIO CHEST PULMONARY EMBOLISM IMPRESSION: 1. No pulmonary emboli. 2. Multifocal consolidation and tree in bud nodularity within both lungs are compatible with diffuse pneumonia. Please correlate clinically to exclude an atypical cause for pneumonia. 3. Trace right-sided pleural effusion. 4. Prominent thyroid. 5. Hepatic steatosis. Dictated and approved by: Shakir Panda M.D. on 12/25/2016 at 14:00 X-RAY CHEST ONE VIEW, PORTABLE IMPRESSION: At the lateral left lung base and at the right lung apex laterally there are areas of radiodensity within the lung parenchyma that most likely would represent pneumonia in this clinical circumstance. Followup to resolution is recommended given the fact that either of these areas may have underlying neoplasm within. Dictated and approved by: Dagoberto Smith M.D. on 12/25/2016 at 13:34 Additional Diagnostics ABG DateTimeAnalyzed 13:12:00 -_ pH ____7.384 - 7.350 7.450 pCO2 ___37.1__ -mmHg 35.0 45.0 pO2 ___67.5__ -mmHg 69.0 116 HCO3- ___21.6__ -mmol/L 22.0 26.0 ABE ___-2.5__ -mmol/L -2.0 2.0 tHb ___10.2__ -g/dL O2Hb ___89.9__ -% COHb ____3.9__ -% MetHb ____0.9__ -% sO2 ___94.4__ -% FIO2 ___35.0__ -% PEEP ____6.0__ -cmH2O Set_RR ___38.0__ -b/min Drawn By btl - Date/Time Notified____ 13:16:00 -_ Oxygen Device 1 ____BIPAP - Notified By btl - Notified Whom ___Dr. Jaysen - B 754 -mmHg tO2 ___12.9__ -Vol% Assessment & Plan 60-year-old lady with uncontrolled diabetes mellitus and schizo-affective disorder with psychiatric admission in October of this year who presented with a 3day history shortness of breath and productive cough for the past three days. Admitted for acute respiratory distress and sepsis secondary to bilateral pneumonia and UTI. Hospital day #2 1. Sepsis, acute. Present on admission. Active -Meets criteria with: leukocytosis, tachycardia, tachypnea and suspected pulmonary as well as urinary source of infection. -CT angio negative for pulmonary embolism but revealed multifocal consolidation bilaterally. -In the ED: received doses of azithromycin, ceftriaxone, levofloxacin, and 125mg IV methylprednisolone. -Continue IV fluids, zosyn, levofloxacin and vancomycin. 2. Acute hypoxemic respiratory failure. Present on admission. Active. -Likely secondary to pneumonia with concern for possible exacerbation of COPD. No known diagnosis of COPD but ppd smoker with increased sputum and chronic cough. -Supplemental oxygen, maintain O2 sats of 88-92%. -Continue zosyn, levofloxacin and vancomycin -Duonebs q4h while awake 3. Bilateral pneumonia, acute. Present on admission. Active -Recent admission in October, possibly health-care acquired. CXR and CT angio with evidence consistent with diffuse pneumonia. -respiratory viral PCR, legionella/strep pneumoniae antigens- negative. -Blood cultures pending -Antibiotics, duonebs as above. 4. Urinary tract infection, acute. Present on admission. Resolved -UA consistent with infection -Urine culture with no growth to date. 5. Reported diarrhea, acute on chronic. Present on admission. Active -Stool PCR negative -Lomotil prn 6. Diabetes mellitus, chronic, poorly controlled. Present on admission. Active. -HbA1c 15.1 on 11/19/16. -Serum glucose 212 -Hold home metformin, dulaglutide and Insulin detemir -High dose correctional insulin lispro, basal insulin- Lantus 7. Hypertension, chronic. Present on admission. Presumed stable. -Continue home dose Propranolol 8. Hyperlipidemia, chronic. Present on admission. Presumed stable. -Continue home dose fenofibrate and atorvastatin, daily aspirin 9. Schizoaffective disorder, chronic. Present on admission. Presumed stable. -Psychiatric admission in October of this year with auditory hallucinations. Patient reports good follow up since discharge and continues to take her medications. -She does have tardive dyskinesia, likely related to medications. -Continue home divalproex ER, 1,000mg in the evening and 500mg in the morning. -Consider consult to Psychiatry 10. History of breast cancer s/p bilateral mastectomy. Present on admission. Presumed stable. -Continue home Arimidex PRN: Acetaminophen-fever/headache/mild/moderate pain Antiemetics, as needed Bowel regimen, as needed. Disposition: Patient admitted under inpatient status with expected length of stay > 2 midnights for severity of present symptoms, complexities of treatment plan and risk for adverse event. Pain Evaluation: Adequate Pain Control VTE Prophylaxis: Sub-Q Heparin (Unfractionated) Resuscitation Status: CPR: Attempt Resuscitation Attending Statement The patient was seen and examined together with Resident/House-Staff on 12/26/16 and I agree with the history, exam and plan as outlined in the note above. Bita Sauceda DO December 26, 2016 08:33 Rashad Alba December 28, 2016 16:48
--- NOTE | 2016-12-26 13:32 | PROG NOTE ---
[address] [address] PROGRESS NOTE PATIENT: QUINTEN GUEVARA : 1955 MR#: [id number] ADMIT: 12/25/2016 JOB ID: [id number] DATE: 12/26/2016 PULMONARY FOLLOW UP NOTE: PROBLEMS: 1. Pneumonia. 2. History of wheezing. 3. History of breast cancer. SUBJECTIVE: Breathing a bit more comfortably today. Has some cough productive of green phlegm. No chest pain. Feels comfortable though she has the covers up around her neck but states she is neither cool nor too hot and does not wish a second blanket. She does say that her appetite is returning and she is hungry for something to eat. OBJECTIVE: Temperature 36.9. Pulse 96. Respiratory rate 25. Blood pressure 113/57, O2 sat on nasal cannula at 6 liters is 96%. I and O shows a liter in yesterday evening. General appearance: Comfortable appearing. Looks a bit like she is cold but denies same. States she feels just right. No chills. Chest: Fairly good breath sounds bilaterally. Coarse crackles throughout the right lung field. There are some expiratory wheezes in the upper lung menard bilaterally. No use of accessory muscles. Heart: Regular rhythm. Heart tones normal. Abdomen is soft and nontender. Extremities: No pretibial edema. LABORATORY DATA: Shows a white count of 7800 with 76 polymorphonuclears, 11 lymphs, 12 monocytes. Hemoglobin 9.7, was 11.1 yesterday. Platelet count 237,000 and stable. Lytes are normal. BUN 16, creatinine 0.5. Glucose 252. Lactic acid is 1. Calcium is 8.6 with an albumin of 2.8. Total bilirubin 0.3. AST normal at 40. ALT mildly elevated at 56. Alkaline phos normal at 92. Procalcitonin is 0.5. Urine for Legionella antigen is negative. Respiratory viral PCR is pending. Nasal swab positive for MRSA. Stool was negative for pathogen. Urine for Strep pneumoniae antigen is negative. Clinically doing better. Oxygenating well off of the BiPAP. She is doing quite well with the nasal cannula at this point. Looks a little bit more uncomfortable than she seems to admit. She, however, denies problems. Breathing is still a bit shallow and a bit quick with any exertion but relatively comfortable with a reasonable rate at rest. Studies for possible etiology are ongoing. Nasal swab, however, is positive for MRSA screen. PLAN: 1. Continue current oxygen delivery system with the nasal cannula aiming for a sat of 93% or above. 2. Chest x-ray in a.m. AP portable upright would suffice.
[2016-12-26] MEDS ORDERED: Vancomycin Serum Trough XX ONE (16:30)
[2016-12-27] VITALS (13 sets, daily range): BP systolic 113–159; BP diastolic 65–79; PULSE 88–127; RESP 24–44; O2SAT 92–96
[2016-12-27] MEDS: Piperacillin-Tazo 3.375 Gm Inj 3.375 GM in Dextrose 5% Minibag Plus 50 ML IV SCH ×3 (00:39→16:51)
[2016-12-27] MEDS: Heparin 5,000 Unit/mL Inj SUBQ SCH ×3 (00:46→16:51)
[2016-12-27] MEDS: Vancomycin 1 Gm/200 mL NS Premix IV SCH ×3 (01:50→17:21)
[2016-12-27 03:29] LABS: BASOPHILS % (AUTO) 0.3 % (0-3); EOSINOPHILS % (AUTO) 0.1 % (0-5); MONOCYTES % (AUTO) 11.4 % (4-12); Mean Corpuscular Hemoglobin 27.2 pg (27.0-35.0); Mean Corpuscular Volume 88.1 fL (81-100); NEUTROPHILS % (AUTO) 73.2 % (40-74); Platelet Count 280 bil/L (150-400)
--- NOTE | 2016-12-27 07:39 | DRSVH ---
PROCEDURE: X-RAY CHEST ONE VIEW, PORTABLE ([id number]) INDICATIONS: pneumonia TECHNIQUE: One view of the chest was acquired. COMPARISON: [facility], CT, CT ANGIO CHEST PE, 12/25/2016, 14:40. [facility] , CR, XR CHEST 1VW (PORTABLE), 12/25/2016, 13:07. FINDINGS: Surgical changes and devices: None. Lungs and pleura: No pleural effusions or pneumothorax. Moderate patchy right apical airspace opacit y is present, as seen by CT. There is new patchy right lower lung and left lung base air space opacit y. Mediastinum: Mediastinal contours appear normal. Heart size is normal. Bones and chest wall: No suspicious bony lesions. Overlying soft tissues appear unremarkable. IMPRESSION: 1. No change in right apical pneumonia. Follow up plain films of the chest are recommended to ensure resolution, and to exclude underlying or central malignancy. 2. New bibasilar pneumonia. Dictated by: Brittany Chris M.D. on 12/27/2016 at 7:36 Approved by: Brittany Chris M.D. on 12/27/2016 at 7:38
[2016-12-27] MEDS ORDERED: Insulin GLARgine 100 Unit/mL Syringe SUBQ ONE (07:50)
[2016-12-27] MEDS: Albuterol-Ipratropium 3 mL Inhalation Solution NEB SCH ×4 (08:05→19:52)
[2016-12-27] MEDS ORDERED: Vancomycin Serum Trough XX ONE (08:30)
[2016-12-27] MEDS: Divalproex (QD) 500 mg ER24 Tablet PO SCH ×2 (08:50→21:30)
[2016-12-27] MEDS: Vancomycin Dose per Pharmacist XX SCH (08:56)
[2016-12-27] MEDS: Insulin LISPRO 300 Unit/3 mL Inj SUBQ SCH ×4 (09:13→21:32)
[2016-12-27] MEDS: 0.9% Sodium Chloride 1,000 ML IV SCH ×3 (09:54→21:32)
[2016-12-27] MEDS: levoFLOXacin Inj 500 MG in IV Premix 1 EACH IV SCH (09:57)
[2016-12-27] MEDS: predniSONE 20 mg Tablet PO SCH (17:20)
--- NOTE | 2016-12-27 18:19 | PROG NOTE ---
[address] [address] PROGRESS NOTE PATIENT: QUINTEN GUEVARA : 1955 MR#: [id number] ADMIT: 12/25/2016 JOB ID: [id number] DATE: 12/27/2016 PROBLEM: Pneumonia. SUBJECTIVE: Breathing more comfortably. Essentially no sputum production. The minimal amount she is bringing up has a greenish hue. No pleuritic pain. Appetite fair at best. Overall, feeling quite a bit better. OBJECTIVE: Temperature 36.9 with T-max being 37.5, pulse 93, respiratory rate 24, blood pressure 113/66, O2 sat on 6 L of oxygen is 94%. General appearance: Lying supine in bed. Comfortable. Carrying on appropriate conversation. Chest: No use of accessory muscles. Diminished breath sounds bilaterally. Diffuse expiratory wheezes throughout both lung menard. Heart: Regular rhythm. Heart tones normal. Abdomen is soft. Bowel tones present. Extremities: No pretibial edema. Chest x-ray continues to show a patchy infiltrate in the right lower lung field. There is persistent mild opacification of the left lower lung field. LABORATORY DATA: Shows a white count of 10,000 with a normal differential. Hemoglobin stable at 10.3. Platelet count stable at 280,000. Sodium 144, potassium 4, chloride 105, CO2 is 26, BUN 13, creatinine 0.5. Glucose significantly elevated at 321. Calcium 8.5. Bilirubin 0.4. AST slightly increased at 62. ALT slightly increased at 83. Alkaline phos slightly increased to 167. Albumin normal at 2.9. ASSESSMENT: Pneumonia. Seems to be doing a bit better. However, she has a significant amount of wheezing. Getting nebulizer treatments three times a day. May want to increase that slightly. In addition, might add 40 mg of prednisone to see how we do. Unclear as to the mild elevations of the transaminases and the alkaline phos. Will need to keep an eye on that situation. PLAN: 1. Increase nebulized bronchodilators to q.4 h. while awake and q.2 h. p.r.n. dyspnea at night. 2. Prednisone p.o. 40 mg daily. 3. Morning bloods consist of a CBC with diff, platelet count, CMP, Mag and phos.
--- NOTE | 2016-12-27 19:18 | PCM.PNMED ---
Subjective Date of Service December 27, 2016 Subjective Hospital day 3. Overnight patient continues to be tachycardic, and continued to have multiple bouts of diarrhea (though noted to be consistent with her chronic diarrhea, perhaps worsened by her antibiotic use). Increased blood sugars. Patient seen today while eating breakfast, and able to converse easily in long phrases while eating just on Nasal Cannula. She reports that her breathing seems to be improving, and denies other complaints. She does note somewhat of a wheeze. Focused review of systems otherwise negative. Exam Vital Signs Vital Sign - Last Date Time Temp Pulse Resp B/P Pulse Ox O2 Delivery O2 Flow Rate FiO2 12/27/16 17:38 36.7 99 28 136/79 92 Nasal Cannula 6.00 12/26/16 02:46 35 Intake and Output 12/26/16 12/26/16 12/27/16 Cumulative From/Thru 15:00 23:00 07:00 12/25/16 12:30 - 12/27/16 06:57 Intake Total 2803 ml 2155 ml 7379 ml Output Total 800 ml 525 ml 1325 ml Balance 2003 ml 1630 ml 6054 ml Intake Oral 1425 ml 800 ml 2225 ml IV Total 1378 ml 1355 ml 5154 ml Output Urine Total 800 ml 525 ml 1325 ml # Voids 3 6 11 # Bowel Movements 2 4 8 Exam General: Well-developed, female in no acute distress, nasal cannula in place, appropriately interactive HEENT: Normocephalic, atraumatic. Oral mucosa pink/moist. Neck: Supple, nontender. No lymphadenopathy or thyromegaly. Cardiovascular: Tachycardic, regular rhythm with no murmurs, rubs, or gallops appreciated Pulmonary: Poor air movement, clear lung sounds with minimal diffuse crackles, and short inspiratory wheeze. No use of accessory muscles. Abdomen: Bowel tones present. Soft, diffusely tender to palpation florian in right upper quadrant, nondistended. Extremities: No clubbing, cyanosis, edema, or lymphadenopathy appreciated. Skin: Normal temperature, turgor, and texture; no rash, ulcers, or subcutaneous nodules appreciated. Neurological: Cranial nerves grossly intact. No focal deficit. Tardive dyskinesia of left hand. Psychiatric: Normal mood and affect. Reports auditory hallucinations. Alert and oriented to person, place, and time. IVs and Medications Medications Reviewed: Medications were reviewed in detail Lab and Diagnostics Laboratory Tests Test 5/7/17 02:51 White Blood Count 10.0th/mm3 (3.8-10.1) Red Blood Count 3.78mil/mm3 (3.90-5.20) Hemoglobin 10.3g/dL (12.0-15.6) Hematocrit 33.3% (35.0-46.0) Mean Corpuscular Volume 88.1fL (81-100) Mean Corpuscular Hemoglobin 27.2pg (27.0-35.0) Mean Corpuscular Hemoglobin Concent 30.9% (32.0-37.0) Red Cell Distribution Width 14.8% (12.3-15.4) Platelet Count 280bil/L (150-400) Neutrophils (%) (Auto) 73.2% (40-74) Lymphocytes (%) (Auto) 14.4% (14-46) Monocytes (%) (Auto) 11.4% (4-12) Eosinophils (%) (Auto) 0.1% (0-5) Basophils (%) (Auto) 0.3% (0-3) Sodium Level 144mEq/L (134-144) Potassium Level 4.0mEq/L (3.5-5.2) Chloride Level 105mEq/L (97-108) Carbon Dioxide Level 26mmol/L (18-29) Blood Urea Nitrogen 13mg/dL (8-27) Creatinine 0.55mg/dL (0.57-1.00) Estimat Glomerular Filtration Rate 160mL/min (>59) Glucose Level 321mg/dL (60-99) Calcium Level 8.5mg/dL (8.5-10.1) Total Bilirubin 0.4mg/dL (0.0-1.2) Aspartate Amino Transf (AST/SGOT) 62U/L (0-50) Alanine Aminotransferase (ALT/SGPT) 83U/L (0-32) Alkaline Phosphatase 167U/L (25-165) Total Protein 5.6g/dL (6.4-8.4) Albumin 2.9g/dL (3.4-5.0) Microbiology 12/25/16 Blood Culture - Preliminary, Resulted No growth at 2 days; culture examined... 12/26/16 MRSA positive screen 12/26/16 stool PCR negative 12/26/16 respiratory PCR negative 12/25/16 Streptococcus pneumoniae Ag Screen - Final, negative (as well as Legionella) Urine culture shows only mixed urogenital ruy Result Diagram: 12/27/16 0251 12/27/16 0251 X-Rays, CTs and MRIs CT ANGIO CHEST PULMONARY EMBOLISM IMPRESSION: 1. No pulmonary emboli. 2. Multifocal consolidation and tree in bud nodularity within both lungs are compatible with diffuse pneumonia. Please correlate clinically to exclude an atypical cause for pneumonia. 3. Trace right-sided pleural effusion. 4. Prominent thyroid. 5. Hepatic steatosis. Dictated and approved by: Shakir Panda M.D. on 12/25/2016 at 14:00 X-RAY CHEST ONE VIEW, PORTABLE IMPRESSION: At the lateral left lung base and at the right lung apex laterally there are areas of radiodensity within the lung parenchyma that most likely would represent pneumonia in this clinical circumstance. Followup to resolution is recommended given the fact that either of these areas may have underlying neoplasm within. Dictated and approved by: Dagoberto Smith M.D. on 12/25/2016 at 13:34 Date of Service: 12/27/16 0500 PROCEDURE: X-RAY CHEST ONE VIEW, PORTABLE ([id number]) INDICATIONS: pneumonia IMPRESSION: 1. No change in right apical pneumonia. Follow up plain films of the chest are recommended to ensure resolution, and to exclude underlying or central malignancy. 2. New bibasilar pneumonia. Dictated by: Brittany Chris M.D. on 12/27/2016 at 7:36 Assessment & Plan 60-year-old lady with uncontrolled diabetes mellitus and schizo-affective disorder with psychiatric admission in October of this year who presented with a 3day history shortness of breath and productive cough for the past three days. Admitted for acute respiratory distress and sepsis secondary to bilateral pneumonia and UTI. Hospital day #2 1. Sepsis, acute. Present on admission. Active -Meets criteria with: leukocytosis, tachycardia, tachypnea and suspected pulmonary as well as urinary source of infection (urine culture negative). -CT angio negative for pulmonary embolism but revealed multifocal consolidation bilaterally. -In the ED: received doses of azithromycin, ceftriaxone, levofloxacin, and 125mg IV methylprednisolone. -Continue IV fluids, zosyn, levofloxacin and vancomycin. -Pulmonary service consulted, and we appreciate their expertise 2. Acute hypoxemic respiratory failure. Present on admission. Active. -Likely secondary to pneumonia with concern for possible exacerbation of COPD. No known diagnosis of COPD but ppd smoker with increased sputum and chronic cough. -Supplemental oxygen, maintain O2 sats of 88-92%. -Continue zosyn, levofloxacin and vancomycin -Duonebs q4h while awake -Steroids added today by pulmonary service following discussion regarding wheeze 3. Bilateral pneumonia, acute. Present on admission. Active -Recent admission in October, possibly health-care acquired. CXR and CT angio with evidence consistent with diffuse pneumonia. -respiratory viral PCR, legionella/strep pneumoniae antigens- negative. -Blood cultures negative -Antibiotics, duonebs as above. -Consideration for bronchitis if no improvement 4. Urinary tract infection suspected but without definitive microbiological etiology, acute. Present on admission. -UA consistent with infection -Urine culture with no growth to date. -Antibiotics as noted above 5. Reported diarrhea, acute on chronic. Present on admission. Active -Stool PCR negative -Lomotil prn 6. Diabetes mellitus, chronic, poorly controlled. Present on admission. Active. -HbA1c 15.1 on 11/19/16. Repeat -Elevated serum glucose, and added Lantus today -Hold home metformin, dulaglutide and Insulin detemir -Medium dose correctional insulin lispro , but consider switch to high 7. Hypertension, chronic. Present on admission. Presumed stable. -Continue home dose Propranolol 8. Hyperlipidemia, chronic. Present on admission. Presumed stable. -Continue home dose fenofibrate and atorvastatin, daily aspirin 9. Schizoaffective disorder, chronic. Present on admission. Presumed stable. -Psychiatric admission in October of this year with auditory hallucinations. Patient reports good follow up since discharge and continues to take her medications. -She does have tardive dyskinesia, likely related to medications. -Continue home divalproex ER, 1,000mg in the evening and 500mg in the morning. -Consider consult to Psychiatry 10. History of breast cancer s/p bilateral mastectomy. Present on admission. Presumed stable. -Continue home Arimidex 11. Acute hepatic injury on chronic ALT elevation. -Continue to monitor LFTs as this is likely secondary to her underlying septic/ infectious presentation as noted above -Avoid hepatotoxic medications PRN: Acetaminophen-fever/headache/mild/moderate pain Antiemetics, as needed Bowel regimen, as needed. Patient admitted under inpatient status with expected length of stay > 2 midnights for severity of present symptoms, complexities of treatment plan and risk for adverse event. Disposition: Likely in 1 or 2 days as she is improving. Pain Evaluation: Adequate Pain Control GI Prophylaxis: Not indicated VTE Prophylaxis: Sub-Q Heparin (Unfractionated) Resuscitation Status: CPR: Attempt Resuscitation Attending Statement The patient was seen and examined together with Resident/House-Staff on 12/27/16 and I agree with the history, exam and plan as outlined in the note above. Cristhian Balderrama DO December 27, 2016 19:18 Rashad Alba December 28, 2016 17:05
[2016-12-28] VITALS (14 sets, daily range): BP systolic 113–133; BP diastolic 63–77; PULSE 76–101; RESP 22–28; O2SAT 92–98
[2016-12-28] MEDS: Albuterol-Ipratropium 3 mL Inhalation Solution NEB PRN ×3 (00:19→12:38)
[2016-12-28] MEDS: Heparin 5,000 Unit/mL Inj SUBQ SCH ×3 (01:21→17:04)
[2016-12-28] MEDS: Vancomycin 1 Gm/200 mL NS Premix IV SCH ×2 (01:21→10:30)
[2016-12-28] MEDS: Piperacillin-Tazo 3.375 Gm Inj 3.375 GM in Dextrose 5% Minibag Plus 50 ML IV SCH ×3 (02:29→17:05)
[2016-12-28 05:35] LABS: BASOPHILS % (AUTO) 0.3 % (0-3); EOSINOPHILS % (AUTO) 0.1 % (0-5); Mean Corpuscular Hemoglobin 27.3 pg (27.0-35.0); NEUTROPHILS % (AUTO) 69.9 % (40-74); Platelet Count 271 bil/L (150-400)
[2016-12-28 06:01] LABS: Magnesium 1.8 mg/dL (1.6-2.6); Phosphorus 2.8 mg/dL (2.5-4.9)
[2016-12-28] MEDS: 0.9% Sodium Chloride 1,000 ML IV SCH (07:41)
[2016-12-28] MEDS: predniSONE 20 mg Tablet PO SCH (07:44)
[2016-12-28] MEDS: Insulin LISPRO 300 Unit/3 mL Inj SUBQ SCH ×4 (07:44→22:45)
[2016-12-28] MEDS: Divalproex (QD) 500 mg ER24 Tablet PO SCH ×2 (07:45→22:45)
[2016-12-28] MEDS: levoFLOXacin Inj 500 MG in IV Premix 1 EACH IV SCH (07:46)
[2016-12-28] MEDS: Vancomycin Dose per Pharmacist XX SCH (08:30)
[2016-12-28] MEDS: Albuterol-Ipratropium 3 mL Inhalation Solution NEB SCH ×3 (08:32→21:39)
--- NOTE | 2016-12-28 10:41 | PCM.PHAPRO ---
Progress Vancomycin Management: -pt has had several doses of Vancomycin since last trough level of 14.8 on 5-6 -will order another level prior to dose this evening at 1730 Marleen Summers [facility] December 28, 2016 10:41
--- NOTE | 2016-12-28 10:52 | DRSVH ---
PROCEDURE: X-RAY CHEST ONE VIEW, PORTABLE ([id number]) INDICATIONS: PNEUMONIA. TECHNIQUE: One view of the chest was acquired. COMPARISON: [facility], CR, XR CHEST 1VW (PORTABLE), 12/27/2016, 5:20. FINDINGS: Surgical changes and devices: None. Lungs and pleura: Interval increase in bilateral patchy air space opacity suspicious for worsening m ultifocal aspiration or pneumonia. Trace left pleural effusion. Mediastinum: Mediastinal contours appear normal. Heart size is normal. Bones and chest wall: No suspicious bony lesions. Overlying soft tissues appear unremarkable. IMPRESSION: 1. Increasing bilateral lung opacification suspicious for worsening aspiration or pneumonia. Differe ntial would also include mild bilateral edema. Dictated by: Gregg Carbajal RRLacie Interpreted: Natalia Hinojosa MD on 12/28/2016 at 8:11 Transcribed by: KAYDEN on 12/28/2016 at 13:52 Approved by: Natalia Hinojosa M.D. on 12/29/2016 at 16:54
[2016-12-28] MEDS ORDERED: Insulin GLARgine 100 Unit/mL Syringe SUBQ ONE (11:35)
--- NOTE | 2016-12-28 11:45 | PCM.PNMED ---
Subjective Date of Service December 28, 2016 Subjective Resting comfortable in bed. Says her breathing is much better, but still feels very weak, minimal sputum. Exam Vital Signs Vital Sign - Last Date Time Temp Pulse Resp B/P Pulse Ox O2 Delivery O2 Flow Rate FiO2 12/28/16 09:37 84 12/28/16 09:02 36.8 26 121/71 97 Nasal Cannula 6.00 12/26/16 02:46 35 Intake and Output 12/27/16 12/27/16 12/28/16 Cumulative From/Thru 15:00 23:00 07:00 12/25/16 12:30 - 12/28/16 06:09 Intake Total 3414 ml 2450 ml 47012 ml Output Total 800 ml 2125 ml Balance 3414 ml 1650 ml 64152 ml Intake Oral 1790 ml 1200 ml 5215 ml IV Total 1624 ml 1250 ml 8028 ml Output Urine Total 300 ml 1625 ml Urine/Stool Mix 500 ml 500 ml # Voids 5 3 19 # Bowel Movements 3 11 Exam Eyes; kali, eom intact HENT; adequate hydration, no lesions CV; regular without murmur Resp; end expiatory wheezing GI; soft non acute non tender Skin; no rash noted Neuro; cn 2-12 intact no focal motor deficits Lab and Diagnostics Result Diagram: 12/28/16 0510 12/28/16 0510 X-Rays, CTs and MRIs CT ANGIO CHEST PULMONARY EMBOLISM IMPRESSION: 1. No pulmonary emboli. 2. Multifocal consolidation and tree in bud nodularity within both lungs are compatible with diffuse pneumonia. Please correlate clinically to exclude an atypical cause for pneumonia. 3. Trace right-sided pleural effusion. 4. Prominent thyroid. 5. Hepatic steatosis. Dictated and approved by: Shakir Panda M.D. on 12/25/2016 at 14:00 X-RAY CHEST ONE VIEW, PORTABLE IMPRESSION: At the lateral left lung base and at the right lung apex laterally there are areas of radiodensity within the lung parenchyma that most likely would represent pneumonia in this clinical circumstance. Followup to resolution is recommended given the fact that either of these areas may have underlying neoplasm within. Dictated and approved by: Dagoberto Smith M.D. on 12/25/2016 at 13:34 Date of Service: 12/27/16 0500 PROCEDURE: X-RAY CHEST ONE VIEW, PORTABLE ([id number]) INDICATIONS: pneumonia IMPRESSION: 1. No change in right apical pneumonia. Follow up plain films of the chest are recommended to ensure resolution, and to exclude underlying or central malignancy. 2. New bibasilar pneumonia. Dictated by: Brittany Chris M.D. on 12/27/2016 at 7:36 Assessment & Plan 60-year-old lady with uncontrolled diabetes mellitus and schizo-affective disorder with psychiatric admission in October of this year who presented with a 3day history shortness of breath and productive cough for the past three days. Admitted for acute respiratory distress and sepsis secondary to bilateral pneumonia and UTI. Hospital day #2 1. Sepsis, acute. Present on admission. resolved -Meets criteria with: leukocytosis, tachycardia, tachypnea and suspected pulmonary as well as urinary source of infection (urine culture negative). -CT angio negative for pulmonary embolism but revealed multifocal consolidation bilaterally. -In the ED: received doses of azithromycin, ceftriaxone, levofloxacin, and 125mg IV methylprednisolone. 2. Acute hypoxemic respiratory failure. Present on admission. Active. -Likely secondary to pneumonia with concern for possible exacerbation of COPD. No known diagnosis of COPD but ppd smoker with increased sputum and chronic cough. -Supplemental oxygen, maintain O2 sats of 88-92%. 3. Bilateral pneumonia, acute. Present on admission. Active -Recent admission in October, possibly health-care acquired. CXR and CT angio with evidence consistent with diffuse pneumonia. -respiratory viral PCR, legionella/strep pneumoniae antigens- negative. -Blood cultures negative -continue with vanco IV, levo and zosyn for today -cxr bit worse,, repeat, continue antibiotics, consider aspiration 4. Urinary tract infection suspected but without definitive microbiological etiology, acute. Present on admission. -UA consistent with infection -Urine culture with no growth to date. -Antibiotics as noted above 5. Reported diarrhea, acute on chronic. Present on admission. Active -Stool PCR negative -Lomotil prn 6. Diabetes mellitus, insulin using, chronic, poorly controlled. Present on admission. Active. -HbA1c 15.1 on 11/19/16. Repeat ordered -Elevated serum glucose, and added Lantus today -Hold home metformin, dulaglutide and Insulin detemir -Medium dose correctional insulin lispro , 7. Hypertension, chronic. Present on admission. Presumed stable. -Continue home dose Propranolol 8. Hyperlipidemia, chronic. Present on admission. Presumed stable. -Continue home dose fenofibrate and atorvastatin, daily aspirin 9. Schizoaffective disorder, chronic. Present on admission. Presumed stable. -Psychiatric admission in October of this year with auditory hallucinations. Patient reports good follow up since discharge and continues to take her medications. -She does have tardive dyskinesia, likely related to medications. -Continue home divalproex ER, 1,000mg in the evening and 500mg in the morning. -Consider consult to Psychiatry 10. History of breast cancer s/p bilateral mastectomy. Present on admission. Presumed stable. -Continue home Arimidex 11. Acute hepatic injury on chronic ALT elevation. -Continue to monitor LFTs as this is likely secondary to her underlying septic/ infectious presentation as noted above -Avoid hepatotoxic medications PRN: Acetaminophen-fever/headache/mild/moderate pain Antiemetics, as needed Bowel regimen, as needed. Patient admitted under inpatient status with expected length of stay > 2 midnights for severity of present symptoms, complexities of treatment plan and risk for adverse event. Disposition: lives alone in apr pcp is Dr Rick GI Prophylaxis: Not indicated VTE Prophylaxis: Sub-Q Heparin (Unfractionated) Resuscitation Status: CPR: Attempt Resuscitation Karlie Johnston MD December 28, 2016 11:45
--- NOTE | 2016-12-28 14:14 | PCM.PHAPRO ---
Progress Vancomycin Management: -trough level had been drawn this morning so will cancel this evening's 1700 request -level returned as 10.3, low for treatment of pneumonia/sepsis -previous level on same regimen produced a trough of 14.8 -Plan: hesitant to increase regimen as pt is currently on Vancomycin 1gm iv [id number]. Will give a one time dose of 1.5gm at 1730 tonight and continue with 1gm iv [id number] with next trough level after around 4 or 5 doses. serum creatinine to be checked as well Marleen Summers [facility] December 28, 2016 14:14
[2016-12-28] MEDS ORDERED: Vancomycin Serum Trough XX ONE (17:00)
[2016-12-28] MEDS ORDERED: Vancomycin Inj 1,500 MG in 0.9% Sodium Chloride 500 ML IV ONE (17:30)
[2016-12-28] MEDS: Mupirocin 2% 22 Gm Ointment TOPICAL SCH (20:30)
[2016-12-29] VITALS (13 sets, daily range): BP systolic 116–133; BP diastolic 70–86; PULSE 77–98; RESP 20–24; O2SAT 88–97
[2016-12-29] MEDS: Piperacillin-Tazo 3.375 Gm Inj 3.375 GM in Dextrose 5% Minibag Plus 50 ML IV SCH ×2 (00:37→08:30)
[2016-12-29] MEDS: Heparin 5,000 Unit/mL Inj SUBQ SCH ×3 (00:37→17:15)
[2016-12-29] MEDS: Vancomycin 1 Gm/200 mL NS Premix IV SCH ×3 (02:27→17:32)
[2016-12-29 05:45] LABS: BASOPHILS % (AUTO) 0.6 % (0-3); EOSINOPHILS % (AUTO) 1.9 % (0-5); MONOCYTES % (AUTO) 7.5 % (4-12); Mean Corpuscular Hemoglobin 27.6 pg (27.0-35.0); Mean Corpuscular Volume 86.6 fL (81-100); NEUTROPHILS % (AUTO) 68.6 % (40-74); Platelet Count 300 bil/L (150-400)
[2016-12-29] MEDS: Albuterol-Ipratropium 3 mL Inhalation Solution NEB SCH ×4 (05:49→20:08)
[2016-12-29] MEDS ORDERED: predniSONE 20 mg Tablet PO SCH (08:30)
[2016-12-29] MEDS ORDERED: Furosemide 10 mg/mL 2 mL Inj IVPUSH ONE (08:35)
[2016-12-29] MEDS: Insulin LISPRO 300 Unit/3 mL Inj SUBQ SCH ×4 (08:39→21:18)
[2016-12-29] MEDS: Divalproex (QD) 500 mg ER24 Tablet PO SCH ×2 (08:43→21:16)
[2016-12-29] MEDS: levoFLOXacin Inj 500 MG in IV Premix 1 EACH IV SCH (08:45)
--- NOTE | 2016-12-29 08:47 | PCM.PNMED ---
Subjective Date of Service December 29, 2016 Subjective Patient continues to feel better, says her breathing is improving. Blood sugars still high. No productive sputum. Exam Vital Signs Vital Sign - Last Date Time Temp Pulse Resp B/P Pulse Ox O2 Delivery O2 Flow Rate FiO2 12/29/16 05:50 90 22 94 Nasal Cannula 4.00 12/29/16 04:28 36.7 127/72 12/26/16 02:46 35 Intake and Output 12/28/16 12/28/16 12/29/16 Cumulative From/Thru 15:00 23:00 07:00 12/25/16 12:30 - 12/29/16 06:36 Intake Total 2175 ml 1592 ml 75153 ml Output Total 1950 ml 1750 ml 5825 ml Balance 225 ml -158 ml 73936 ml Intake Oral 2175 ml 650 ml 8040 ml IV Total 942 ml 8970 ml Output Urine Total 1950 ml 1750 ml 5325 ml Urine/Stool Mix 500 ml # Voids 19 # Bowel Movements 4 0 15 Exam Eyes; kali, eom intact HENT; good hydration CV; no murmur regular, no edema, no JVD Resp; course with some scattered crackles GI; soft, non acute Skin; no active rashes Neuro; cn 2-12 intact, no focal deficits noted Lab and Diagnostics Result Diagram: 12/29/1630 12/29/16 0530 X-Rays, CTs and MRIs CT ANGIO CHEST PULMONARY EMBOLISM IMPRESSION: 1. No pulmonary emboli. 2. Multifocal consolidation and tree in bud nodularity within both lungs are compatible with diffuse pneumonia. Please correlate clinically to exclude an atypical cause for pneumonia. 3. Trace right-sided pleural effusion. 4. Prominent thyroid. 5. Hepatic steatosis. Dictated and approved by: Shakir Panda M.D. on 12/25/2016 at 14:00 X-RAY CHEST ONE VIEW, PORTABLE IMPRESSION: At the lateral left lung base and at the right lung apex laterally there are areas of radiodensity within the lung parenchyma that most likely would represent pneumonia in this clinical circumstance. Followup to resolution is recommended given the fact that either of these areas may have underlying neoplasm within. Dictated and approved by: Dagoberto Smith M.D. on 12/25/2016 at 13:34 Date of Service: 12/27/16 0500 PROCEDURE: X-RAY CHEST ONE VIEW, PORTABLE ([id number]) INDICATIONS: pneumonia IMPRESSION: 1. No change in right apical pneumonia. Follow up plain films of the chest are recommended to ensure resolution, and to exclude underlying or central malignancy. 2. New bibasilar pneumonia. Dictated by: Brittany Chris M.D. on 12/27/2016 at 7:36 Assessment & Plan 60-year-old lady with a history of hypertension, uncontrolled diabetes mellitus , prior CVA, and schizo-affective disorder with recent hospitalization in October of this year who presented to the emergency department by EMS with the complaint of shortness of breath and productive cough for the past three days. Admitted for acute respiratory distress and sepsis secondary to bilateral pneumonia and UTI. 1. Sepsis, acute. Present on admission. resolved -Meets criteria with: leukocytosis, tachycardia, tachypnea and suspected pulmonary as well as urinary source of infection. -CT angio negative for pulmonary embolism but revealed multifocal consolidation bilaterally. -Received 1L of NS, doses of azithromycin, ceftriaxone, levofloxacin, and 125mg IV methylprednisolone. in the ER. -Placed on BiPap for increasing respiratory distress and hypoxia. 2. Acute respiratory distress. Present on admission. Active. -Likely secondary to pneumonia with concern for possible exacerbation of COPD. No known diagnosis of COPD but patient is pack per day smoker with increased sputum and chronic cough. -Continue BiPap, maintain O2 sats of 88-92%. -Duonebs q4h while awake -pulmonary started prednisone for wheezing, reduce to 20 today 3. Bilateral pneumonia, acute. Present on admission. Active -Recent admission in October, possibly health-care acquired. -Chest xray and CT angio with evidence consistent with diffuse pneumonia. -cultures negative except for positive nasla MRSA -Day 5 of IV Vanco, Levaquin, Zosyn. will d/c zosyn today 4. Urinary tract infection, acute. Present on admission. resolved -UA consistent with infection -Antibiotics as above. 5. Reported diarrhea, acute on chronic. Present on admission. resolved -Check stool PCR and if negative will treat with Lomotil prn 6. Diabetes mellitus, chronic, poorly controlled. Present on admission. Active. -HbA1c 15.1 on 11/19/16. -Serum glucose 212 -continue with med correction -50 lantus today -continue to hold metformin -reduce steroids 7. Hypertension, chronic. Present on admission. Presumed stable. -Continue home dose Propranolol 8. Hyperlipidemia, chronic. Present on admission. Presumed stable. -Continue home dose fenofibrate and atorvastatin, daily aspirin 9. Schizoaffective disorder, chronic. Present on admission. Presumed stable. -Psychiatric admission in October of this year with auditory hallucinations. Patient reports good follow up since discharge and continues to take her medications. -She does have tardive dyskinesia, likely related to medications. -Continue home divalproex ER, 1,000mg in the evening and 500mg in the morning. -Consider consult to Psychiatry 10. History of breast cancer s/p bilateral mastectomy. Present on admission. Presumed stable. -Continue home Arimidex PRN: Acetaminophen-fever/headache/mild/moderate pain Antiemetics, as needed Bowel regimen, as needed. Disposition: Patient admitted under inpatient status with expected length of stay > 2 midnights for severity of present symptoms, complexities of treatment plan and risk for adverse event. GI Prophylaxis: Not indicated VTE Prophylaxis: Sub-Q Heparin (Unfractionated) Resuscitation Status: CPR: Attempt Resuscitation Karlie Johnston MD December 29, 2016 08:47
[2016-12-29] MEDS: Mupirocin 2% 22 Gm Ointment TOPICAL SCH ×2 (11:02→21:17)
[2016-12-29] MEDS: Vancomycin Dose per Pharmacist XX SCH (11:30)
[2016-12-30] VITALS (11 sets, daily range): BP systolic 99–134; BP diastolic 65–79; PULSE 77–104; RESP 16–28; O2SAT 92–97
[2016-12-30] MEDS: Heparin 5,000 Unit/mL Inj SUBQ SCH ×3 (00:53→17:43)
[2016-12-30] MEDS: Vancomycin 1 Gm/200 mL NS Premix IV SCH ×3 (01:59→17:42)
[2016-12-30] MEDS: Albuterol-Ipratropium 3 mL Inhalation Solution NEB SCH ×4 (06:04→21:34)
--- NOTE | 2016-12-30 07:59 | PCM.PNMED ---
Subjective Date of Service December 30, 2016 Subjective Feeling better, down to 1.5 liters. SOB better. No new problems identified. Exam Vital Signs Vital Sign - Last Date Time Temp Pulse Resp B/P Pulse Ox O2 Delivery O2 Flow Rate FiO2 12/30/16 06:06 83 22 97 Nasal Cannula 2.50 12/30/16 05:06 36.9 129/79 12/26/16 02:46 35 Intake and Output 12/29/16 12/29/16 12/30/16 Cumulative From/Thru 15:00 23:00 07:00 12/25/16 12:30 - 12/30/16 06:06 Intake Total 2918 ml 1716 ml 67242 ml Output Total 2700 ml 300 ml 8825 ml Balance 218 ml 1416 ml 69958 ml Intake Oral 2326 ml 1200 ml 93462 ml IV Total 592 ml 516 ml 60588 ml Output Urine Total 2700 ml 8025 ml Urine/Stool Mix 300 ml 800 ml # Voids 4 3 26 # Bowel Movements 1 6 2 24 Exam Eyes; kali, eom intact HENT; adequate hydration, no active lessions CV; no murmur, regular, no edema no JVD Resp; Diffuse course breath sound, no wheezing today GI; soft benigh, non tender Skin; no active rashes Neuro; cn 2-12 intact no gross sensory or motor defects Lab and Diagnostics Result Diagram: 12/29/16 0530 12/30/16 0525 X-Rays, CTs and MRIs CT ANGIO CHEST PULMONARY EMBOLISM IMPRESSION: 1. No pulmonary emboli. 2. Multifocal consolidation and tree in bud nodularity within both lungs are compatible with diffuse pneumonia. Please correlate clinically to exclude an atypical cause for pneumonia. 3. Trace right-sided pleural effusion. 4. Prominent thyroid. 5. Hepatic steatosis. Dictated and approved by: Shakir Panda M.D. on 12/25/2016 at 14:00 X-RAY CHEST ONE VIEW, PORTABLE IMPRESSION: At the lateral left lung base and at the right lung apex laterally there are areas of radiodensity within the lung parenchyma that most likely would represent pneumonia in this clinical circumstance. Followup to resolution is recommended given the fact that either of these areas may have underlying neoplasm within. Dictated and approved by: Dagoberto Smith M.D. on 12/25/2016 at 13:34 Date of Service: 12/27/16 0500 PROCEDURE: X-RAY CHEST ONE VIEW, PORTABLE ([id number]) INDICATIONS: pneumonia IMPRESSION: 1. No change in right apical pneumonia. Follow up plain films of the chest are recommended to ensure resolution, and to exclude underlying or central malignancy. 2. New bibasilar pneumonia. Dictated by: Brittany Chris M.D. on 12/27/2016 at 7:36 Assessment & Plan 60-year-old lady with a history of hypertension, uncontrolled diabetes mellitus , prior CVA, and schizo-affective disorder with recent hospitalization in October of this year who presented to the emergency department by EMS with the complaint of shortness of breath and productive cough for the past three days. Admitted for acute respiratory distress and sepsis secondary to bilateral pneumonia and UTI. 1. Sepsis, acute. Present on admission. resolved -Meets criteria with: leukocytosis, tachycardia, tachypnea and suspected pulmonary as well as urinary source of infection. -CT angio negative for pulmonary embolism but revealed multifocal consolidation bilaterally. -Received 1L of NS, doses of azithromycin, ceftriaxone, levofloxacin, and 125mg IV methylprednisolone. in the ER. -Placed on BiPap for increasing respiratory distress and hypoxia. 2. Acute respiratory distress. Present on admission. Active. -Likely secondary to pneumonia with concern for possible exacerbation of COPD. No known diagnosis of COPD but patient is pack per day smoker with increased sputum and chronic cough. -Continue BiPap, maintain O2 sats of 88-92%. -Duonebs q4h while awake -pulmonary started prednisone for wheezing, reduce to 20 today 3. Bilateral pneumonia, acute. Present on admission. Active -Recent admission in October, possibly health-care acquired. -Chest xray and CT angio with evidence consistent with diffuse pneumonia. -cultures negative except for positive nasla MRSA -Day 6 of IV Vanco, Levaquin, Zosyn. will d/c zosyn today -Repeat cxr tomorrow AM 4. Urinary tract infection, acute. Present on admission. resolved -UA consistent with infection -Antibiotics as above. 5. Reported diarrhea, acute on chronic. Present on admission. resolved -Check stool PCR and if negative will treat with Lomotil prn 6. Diabetes mellitus, chronic, poorly controlled. Present on admission. Active. -HbA1c 15.1 on 11/19/16. (detemir 80 q am home, + metformin + trulicity + invega) -Serum glucose 212 -continue with med correction -65 lantus today -continue to hold metformin -stop prednisone 7. Hypertension, chronic. Present on admission. Presumed stable. -Continue home dose Propranolol 8. Hyperlipidemia, chronic. Present on admission. Presumed stable. -Continue home dose fenofibrate and atorvastatin, daily aspirin 9. Schizoaffective disorder, chronic. Present on admission. Presumed stable. -Psychiatric admission in October of this year with auditory hallucinations. Patient reports good follow up since discharge and continues to take her medications. -She does have tardive dyskinesia, likely related to medications. -Continue home divalproex ER, 1,000mg in the evening and 500mg in the morning. -Consider consult to Psychiatry 10. History of breast cancer s/p bilateral mastectomy. Present on admission. Presumed stable. -Continue home Arimidex PRN: Acetaminophen-fever/headache/mild/moderate pain Antiemetics, as needed Bowel regimen, as needed. Disposition: Patient admitted under inpatient status with expected length of stay > 2 midnights for severity of present symptoms, complexities of treatment plan and risk for adverse event. GI Prophylaxis: Not indicated VTE Prophylaxis: Sub-Q Heparin (Unfractionated) Resuscitation Status: CPR: Attempt Resuscitation Karlie Johnston MD December 30, 2016 07:59
[2016-12-30] MEDS ORDERED: Insulin GLARgine 100 Unit/mL Syringe SUBQ ONE (08:00)
[2016-12-30] MEDS ORDERED: Vancomycin Serum Trough XX ONE ×2 (08:00→09:00)
[2016-12-30] MEDS: Vancomycin Dose per Pharmacist XX SCH (08:30)
[2016-12-30] MEDS ORDERED: predniSONE 20 mg Tablet PO SCH (08:30)
[2016-12-30] MEDS: Insulin LISPRO 300 Unit/3 mL Inj SUBQ SCH ×4 (08:32→21:25)
[2016-12-30] MEDS: Divalproex (QD) 500 mg ER24 Tablet PO SCH ×2 (08:33→21:20)
--- NOTE | 2016-12-30 09:13 | DRSVH ---
PROCEDURE: X-RAY CHEST ONE VIEW, PORTABLE ([id number]) INDICATIONS: cough, pneumonia TECHNIQUE: One view of the chest was acquired. COMPARISON: [facility], CR, XR CHEST 1VW (PORTABLE), 12/28/2016, 5:23. FINDINGS: Surgical changes and devices: None. Lungs and pleura: Lung volumes have increased in edema and by basilar air space opacities has slightl y decreased. Mediastinum: Mediastinal contours appear normal. Heart size is normal. Bones and chest wall: No suspicious bony lesions. Overlying soft tissues appear unremarkable. IMPRESSION: Increasing lung volumes and slight decrease in edema and/or pneumonia involving the lung bases which has not cleared. Dictated by: Gregg Carbajal RRA Interpreted: Natalia Hinojosa MD on 12/30/2016 at 9:11 Transcribed by: EDDIE on 12/30/2016 at 9:12 Approved by: Natalia Hinojosa M.D. on 12/30/2016 at 17:42
[2016-12-30] MEDS: levoFLOXacin Inj 500 MG in IV Premix 1 EACH IV SCH (10:08)
[2016-12-30] MEDS: Mupirocin 2% 22 Gm Ointment TOPICAL SCH ×2 (10:09→21:20)
--- NOTE | 2016-12-30 11:36 | PCM.PHAPRO ---
Progress Vancomycin Management: -Day 6 of pt receiving Vancomycin 1gm iv [id number] for pneumonia, possible hcap due to admission in October -trough level this morning returned at 15.6 -Zosyn to be stopped today, chest xray to be repeated tomorrow -positive Mrsa pcr -Plan: continue with current regimen and follow Marleen Summers [facility] December 30, 2016 11:36
[2016-12-31] VITALS (14 sets, daily range): BP systolic 98–134; BP diastolic 59–73; PULSE 78–110; RESP 16–24; O2SAT 92–97
[2016-12-31] MEDS: Vancomycin 1 Gm/200 mL NS Premix IV SCH ×3 (02:45→23:18)
[2016-12-31] MEDS: Heparin 5,000 Unit/mL Inj SUBQ SCH ×3 (02:45→16:56)
[2016-12-31] MEDS: Albuterol-Ipratropium 3 mL Inhalation Solution NEB SCH ×4 (06:12→21:14)
[2016-12-31] MEDS ORDERED: Furosemide 10 mg/mL 2 mL Inj IVPUSH ONE (08:05)
[2016-12-31] MEDS ORDERED: Insulin GLARgine 100 Unit/mL Syringe SUBQ ONE (08:05)
--- NOTE | 2016-12-31 08:09 | PCM.PNMED ---
Subjective Date of Service December 31, 2016 Subjective Feeling better each day. Bolld sugars better. Off prednisone, cxr looks better but still abnormal. Exam Vital Signs Vital Sign - Last Date Time Temp Pulse Resp B/P Pulse Ox O2 Delivery O2 Flow Rate FiO2 12/31/16 06:46 87 12/31/16 06:12 16 95 Nasal Cannula 1.00 12/31/16 05:32 37.0 134/69 12/26/16 02:46 35 Intake and Output 12/30/16 12/30/16 12/31/16 Cumulative From/Thru 15:00 23:00 07:00 12/25/16 12:30 - 12/31/16 06:46 Intake Total 2088 ml 1400 ml 21011 ml Output Total 1275 ml 53678 ml Balance 813 ml 1400 ml 91102 ml Intake Oral 1650 ml 1000 ml 88605 ml IV Total 438 ml 400 ml 54749 ml Output Urine Total 1275 ml 9300 ml Urine/Stool Mix 800 ml # Voids 4 30 # Bowel Movements 2 1 27 Exam Eyes; kali, eom intact HENT; adequate hydration, no active lessions CV; no murmur, regular, no edema no JVD Resp; Diffuse course breath sound, no wheezing today GI; soft benigh, non tender Skin; no active rashes Neuro; cn 2-12 intact no gross sensory or motor defects Lab and Diagnostics Result Diagram: 12/29/16 0530 12/31/16 0510 X-Rays, CTs and MRIs CT ANGIO CHEST PULMONARY EMBOLISM IMPRESSION: 1. No pulmonary emboli. 2. Multifocal consolidation and tree in bud nodularity within both lungs are compatible with diffuse pneumonia. Please correlate clinically to exclude an atypical cause for pneumonia. 3. Trace right-sided pleural effusion. 4. Prominent thyroid. 5. Hepatic steatosis. Dictated and approved by: Shakir Panda M.D. on 12/25/2016 at 14:00 X-RAY CHEST ONE VIEW, PORTABLE IMPRESSION: At the lateral left lung base and at the right lung apex laterally there are areas of radiodensity within the lung parenchyma that most likely would represent pneumonia in this clinical circumstance. Followup to resolution is recommended given the fact that either of these areas may have underlying neoplasm within. Dictated and approved by: Dagoberto Smith M.D. on 12/25/2016 at 13:34 Date of Service: 12/27/16 0500 PROCEDURE: X-RAY CHEST ONE VIEW, PORTABLE ([id number]) INDICATIONS: pneumonia IMPRESSION: 1. No change in right apical pneumonia. Follow up plain films of the chest are recommended to ensure resolution, and to exclude underlying or central malignancy. 2. New bibasilar pneumonia. Dictated by: Brittany Chris M.D. on 12/27/2016 at 7:36 Assessment & Plan 60-year-old lady with a history of hypertension, uncontrolled diabetes mellitus , prior CVA, and schizo-affective disorder with recent hospitalization in October of this year who presented to the emergency department by EMS with the complaint of shortness of breath and productive cough for the past three days. Admitted for acute respiratory distress and sepsis secondary to bilateral pneumonia and UTI. 1. Sepsis, acute. Present on admission. resolved -Meets criteria with: leukocytosis, tachycardia, tachypnea and suspected pulmonary as well as urinary source of infection. -CT angio negative for pulmonary embolism but revealed multifocal consolidation bilaterally. -Received 1L of NS, doses of azithromycin, ceftriaxone, levofloxacin, and 125mg IV methylprednisolone. in the ER. -Placed on BiPap for increasing respiratory distress and hypoxia. 2. Acute respiratory distress. Present on admission. Active. -Likely secondary to pneumonia with concern for possible exacerbation of COPD. No known diagnosis of COPD but patient is pack per day smoker with increased sputum and chronic cough. -Continue BiPap, maintain O2 sats of 88-92%. -Duonebs q4h while awake -pulmonary started prednisone for wheezing, reduce to 20 today 3. Bilateral pneumonia, acute. Present on admission. Active -Recent admission in October, possibly health-care acquired. -Chest xray and CT angio with evidence consistent with diffuse pneumonia. -cultures negative except for positive nasla MRSA -Day 7 of IV Vanco, Levaquin, Zosyn. will d/c zosyn today -Repeat cxr tomorrow AM 4. Urinary tract infection, acute. Present on admission. resolved -UA consistent with infection -Antibiotics as above. 5. Reported diarrhea, acute on chronic. Present on admission. resolved -Check stool PCR and if negative will treat with Lomotil prn 6. Diabetes mellitus, chronic, poorly controlled. Present on admission. Active. -HbA1c 15.1 on 11/19/16. (detemir 80 q am home, + metformin + trulicity + invega) -Serum glucose about 100 this am -continue with med correction -70 lantus today -continue to hold metformin 7. Hypertension, chronic. Present on admission. Presumed stable. -Continue home dose Propranolol 8. Hyperlipidemia, chronic. Present on admission. Presumed stable. -Continue home dose fenofibrate and atorvastatin, daily aspirin 9. Schizoaffective disorder, chronic. Present on admission. Presumed stable. -Psychiatric admission in October of this year with auditory hallucinations. Patient reports good follow up since discharge and continues to take her medications. -She does have tardive dyskinesia, likely related to medications. -Continue home divalproex ER, 1,000mg in the evening and 500mg in the morning. -Consider consult to Psychiatry 10. History of breast cancer s/p bilateral mastectomy. Present on admission. Presumed stable. -Continue home Arimidex PRN: Acetaminophen-fever/headache/mild/moderate pain Antiemetics, as needed Bowel regimen, as needed. Disposition: Patient admitted under inpatient status with expected length of stay > 2 midnights for severity of present symptoms, complexities of treatment plan and risk for adverse event. PCP is Dr. Neely PLAN IS TO DISCHARGE TO HOME GI Prophylaxis: Not indicated VTE Prophylaxis: Sub-Q Heparin (Unfractionated) Resuscitation Status: CPR: Attempt Resuscitation Karlie Johnston MD December 31, 2016 08:08
--- NOTE | 2016-12-31 08:17 | DRSVH ---
PROCEDURE: X-RAY CHEST ONE VIEW, PORTABLE ([id number]) INDICATIONS: cough TECHNIQUE: One view of the chest was acquired. COMPARISON: [facility], CR, XR CHEST 1VW (PORTABLE), 12/28/2016, 5:23. [facility], CR, XR CHEST 1VW (PORTABLE), 12/27/2016, 5:20. [facility], CR, XR CHEST 1VW (KACEY BLE), 12/30/2016, 5:45. FINDINGS: Surgical changes and devices: None. Lungs and pleura: Edema has diminished and there is persistent bibasilar patchy airspace opacities. Mediastinum: Mediastinal contours appear normal. Heart size is normal. Bones and chest wall: No suspicious bony lesions. Overlying soft tissues appear unremarkable. IMPRESSION: Diminishing edema and persistent bibasilar patchy airspace opacities consistent with resi dual patchy pulmonary edema and/or pneumonia versus atelectasis. Dictated by: Gregg Carbajal RRA Interpreted: Rogerio Braun MD on 12/31/2016 at 8:16 Transcribed by: ADRIANA on 12/31/2016 at 8:16 Approved by: Cameron Braun M.D. on 12/31/2016 at 10:51
[2016-12-31] MEDS: Divalproex (QD) 500 mg ER24 Tablet PO SCH ×2 (08:18→20:04)
[2016-12-31] MEDS: levoFLOXacin Inj 500 MG in IV Premix 1 EACH IV SCH (08:20)
[2016-12-31] MEDS: Insulin LISPRO 300 Unit/3 mL Inj SUBQ SCH ×4 (08:22→22:00)
[2016-12-31] MEDS: Vancomycin Dose per Pharmacist XX SCH (08:30)
[2016-12-31] MEDS: Mupirocin 2% 22 Gm Ointment TOPICAL SCH ×2 (09:55→19:35)
[2016-12-31] MEDS: Mupirocin 2% 22 Gm Ointment NASAL SCH ×2 (16:55→20:05)
[2017-01-01 00:49] VITALS: BP 100/60; PULSE 87; RESP 22; O2SAT 93
[2017-01-01] MEDS: Heparin 5,000 Unit/mL Inj SUBQ SCH ×2 (00:58→07:48)
[2017-01-01 05:57] VITALS: BP 113/64; PULSE 96; RESP 20; O2SAT 94
[2017-01-01] MEDS: Vancomycin 1 Gm/200 mL NS Premix IV SCH ×2 (06:51→07:19)
[2017-01-01] MEDS ORDERED: levoFLOXacin 500 mg Tablet PO SCH (07:30)
[2017-01-01] MEDS: Insulin LISPRO 300 Unit/3 mL Inj SUBQ SCH ×2 (07:44→11:46)
[2017-01-01] MEDS: Mupirocin 2% 22 Gm Ointment TOPICAL SCH (07:45)
[2017-01-01] MEDS: Divalproex (QD) 500 mg ER24 Tablet PO SCH (07:46)
[2017-01-01] MEDS: Mupirocin 2% 22 Gm Ointment NASAL SCH (07:49)
[2017-01-01 08:00] VITALS: PULSE 106
--- NOTE | 2017-01-01 08:13 | PCM.DIMED ---
Discharge Instructions Date of Service January 01, 2017 Dates of Hospitalization December 25, 2016 at 15:26 Discharge Diagnosis Discharge Diagnosis 1. Sepsis, acute. Present on admission. resolved 2. Acute respiratory distress. Present on admission. resolved 3. Bilateral pneumonia, acute. Present on admission. resolved 4. Urinary tract infection, acute. Present on admission. resolved 5. Reported diarrhea, acute on chronic. Present on admission. resolved 6. Diabetes mellitus, chronic, poorly controlled. Present on admission. stable. 7. Hypertension, chronic. Present on admission. Presumed stable. 9. Schizoaffective disorder, chronic. Present on admission. stable. 10. History of breast cancer s/p bilateral mastectomy. Present on admission, stable. Diet Heart Healthy, Diabetic Activity Limited until seen by PCP Patient Instructions Follow-up plan please followup with your primary care provider one week Follow-up with PCP in: 1 week Karlie Johnston MD January 01, 2017 08:13
--- NOTE | 2017-01-01 08:19 | PCM.DC.MED ---
Discharge Summary Date of Service January 01, 2017 Dates of Hospitalization Date of Hospital Admission December 25, 2016 at 15:26 Date of Discharge: January 01, 2017 Providers: Admitting Physician: Rashad Alba Primary Care Physician: Esequiel Neely DO Attending Physician: Rashad Alba Diagnosis at Time of Discharge Diagnosis at Time of Discharge 1. Sepsis, acute. Present on admission. resolved 2. Acute respiratory distress. Present on admission. resolved 3. Bilateral pneumonia, acute. Present on admission. resolved 4. Urinary tract infection, acute. Present on admission. resolved 5. Reported diarrhea, acute on chronic. Present on admission. resolved 6. Diabetes mellitus, chronic, poorly controlled. Present on admission. stable. 7. Hypertension, chronic. Present on admission. Presumed stable. 9. Schizoaffective disorder, chronic. Present on admission. stable. 10. History of breast cancer s/p bilateral mastectomy. Present on admission, stable. Consultations PATIENT: QUINTEN MCDOWELL : 1955 MR#: [id number] ADMIT: 12/25/2016 JOB ID: [id number] DATE OF SERVICE: 12/25/2016 REQUESTING PHYSICIAN: Rashad Alba MD. REASON FOR CONSULTATION: Pneumonia and hypoxemic respiratory failure. HISTORY OF PRESENT ILLNESS: The patient is a 61-year-old female who was in her usual state of health until four days ago. At that time, she developed a cough subsequently productive of clear sputum, then developed increasing shortness of breath, shaking rigors. No apparent fevers. Associated with chills and sweats. The patient noted some wheezing, weakness. Slept poorly. Patient does not have a history of prior lung disease. However, was treated for pneumonia a number of years in the past. Recovered completely. The patient was hospitalized for schizoaffective disorder for about approximately one week's time, being discharged November 24 of this year. She was treated at that time for a probable urinary tract infection, receiving Keflex. PAST MEDICAL HISTORY: 1. Hypertension, not treated. 2. Hyperlipidemia. 3. Diabetes mellitus, insulin dependent. 4. TIA. 5. Schizoaffective disorder. 6. History of breast cancer. Apparently under remission. REVIEW OF SYSTEMS: No headaches, no visual disturbances, no sore throat. No problems swallowing. No chest pain. No arrhythmias, no dizziness. No abdominal pain, diarrhea, constipation. No rash. No arthralgias. No edema. MEDICATIONS AT HOME: 1. Anastrozole. 2. Atorvastatin. 3. Fenofibrate. 4. Propranolol. 5. Aspirin. 6. Divalproex. 7. Paliperidone. 8. Fluticasone nasal spray. 9. Dulaglutide. 10. Insulin detemir. 11. Metformin. 12. Vitamin D3. 13. Oxybutynin. ALLERGIES: Include THIOTHIXENE. SOCIAL HISTORY: Patient lives at home. Has a diamond picker for her psych issues. Hobbies: None involving exposure. Smoking history: Patient has smoked one pack a day for 30 years and continues to smoke. Alcohol: Unknown. OBJECTIVE: Temperature at noon was 36.5. Pulse 111, respiratory rate 20, though has been as high as 40. Blood pressure 134/71. O2 sat on BiPAP, unknown settings, show an O2 sat of 93%. General appearance: Well-developed, well-nourished female in no acute distress. Seemingly breathing relatively comfortably as long as not interrogated. Eyes: Conjunctivae pink and moist. No scleral icterus. Nose and throat could not be examined. Chest: Fairly good breath sounds. Bilateral crackles, more so on the right. Bilateral upper lobe wheezes. No use of accessory muscles. No chest wall tenderness. Heart: Regular rhythm. Heart tones obscured by pulmonary adventitial sounds. Abdomen soft. Nondistended. Nontender. Bowel tones present. Extremities: No clubbing, cyanosis, nor pretibial edema. Skin: No rashes. Chest x-ray shows scattered opacities, more infiltrative. Some consolidation at pleural areas, lower right, somewhat lower left, with a largest infiltrate in the right upper lung field. LABORATORY DATA: Shows a white count of 12,300 with relatively normal differential except for a mild monocytosis. Hemoglobin 11.1. Platelet count 269,000. Sodium 137, potassium 3.8, chloride 100, CO2 is 20, BUN 12, creatinine 0.5, glucose elevated at 212. Lactic acid 1.3. Calcium 9.7 with albumin of 3.4. AST normal at 42. ALT mildly elevated at 63. Alkaline phos normal at 118. BNP significantly elevated at 830. Procalcitonin 0.55. Blood cultures and urine cultures are pending. ASSESSMENT: 1. Probable healthcare-associated pneumonia. The patient was hospitalized in a psychiatric unit for about a week, last about 30 days ago. Therefore, she is at some increased risk for gram- negatives as well as Staph. Will be covered with broad-spectrum antibiotics including vancomycin, Zosyn, and levofloxacin. Blood gases on BiPAP of unknown IPAP with an EPAP of 6, shows a pO2 of 67, a pCO2 of 37, pH 7.38. We can continue the BiPAP mask, but if he becomes ill-tolerated, then might consider utilizing high-flow oxygen system as that would supply a bit of PEEP, maybe 3 or 4 mm at most with high oxygen concentration, one could get may be 60, 70% out of that, but with normal ventilation, she might tolerate that better. 2. Might consider using nebulized bronchodilators, specifically DuoNeb with her history of wheezing and the presence of wheezing on current exam suggesting some degree of bronchospasm. Might have Respiratory Therapy try one or two treatments and if effective continue on or otherwise use it just on a p.r.n. basis. 3. Hypoxemic respiratory failure. Presumably secondary to pulmonary infection. However, it is unclear what her underlying lung status is. Has a long smoking history and might have some significant COPD. That remains to be determined. 4. History of breast cancer. Would just keep in mind that with her somewhat fine nodular pattern on the right this might represent lymphangitic spread though this is usually well distributed throughout both lung menard and this seems to be mostly right lung. Thank you so much, Dr. Alba, for asking us to see this most interesting individual. Will follow her respiratory status closely along with you. Matt Bui MD 12/25/16 0543 Procedures XRay, CTs & MRIs CT ANGIO CHEST PULMONARY EMBOLISM IMPRESSION: 1. No pulmonary emboli. 2. Multifocal consolidation and tree in bud nodularity within both lungs are compatible with diffuse pneumonia. Please correlate clinically to exclude an atypical cause for pneumonia. 3. Trace right-sided pleural effusion. 4. Prominent thyroid. 5. Hepatic steatosis. Dictated and approved by: Shakir Panda M.D. on 12/25/2016 at 14:00 X-RAY CHEST ONE VIEW, PORTABLE IMPRESSION: At the lateral left lung base and at the right lung apex laterally there are areas of radiodensity within the lung parenchyma that most likely would represent pneumonia in this clinical circumstance. Followup to resolution is recommended given the fact that either of these areas may have underlying neoplasm within. Dictated and approved by: Dagoberto Smith M.D. on 12/25/2016 at 13:34 Date of Service: 12/27/16 0500 PROCEDURE: X-RAY CHEST ONE VIEW, PORTABLE ([id number]) INDICATIONS: pneumonia IMPRESSION: 1. No change in right apical pneumonia. Follow up plain films of the chest are recommended to ensure resolution, and to exclude underlying or central malignancy. 2. New bibasilar pneumonia. Dictated by: Brittany Chris M.D. on 12/27/2016 at 7:36 PROCEDURE: X-RAY CHEST ONE VIEW, PORTABLE ([id number]) INDICATIONS: cough TECHNIQUE: One view of the chest was acquired. COMPARISON: [facility], CR, XR CHEST 1VW (PORTABLE), 12/28/2016, 5: 23. [facility], CR, XR CHEST 1VW (PORTABLE), 12/27/2016, 5:20. [facility], CR, XR CHEST 1VW (PORTABLE), 12/30/2016, 5:45. FINDINGS: Surgical changes and devices: None. Lungs and pleura: Edema has diminished and there is persistent bibasilar patchy airspace opacities. Mediastinum: Mediastinal contours appear normal. Heart size is normal. Bones and chest wall: No suspicious bony lesions. Overlying soft tissues appear unremarkable. IMPRESSION: Diminishing edema and persistent bibasilar patchy airspace opacities consistent with residual patchy pulmonary edema and/or pneumonia versus atelectasis. Dictated by: Gregg Carbajal [facility] Interpreted: Rogerio Braun MD on 12/31/2016 at 8:16 Brief History Ms Quinten Mcdowell is a 60-year-old lady with a history of hypertension, uncontrolled diabetes mellitus, prior CVA, breast cancer s/p bilateral mastectomies, and schizo-affective disorder with recent hospitalization in October of this year who presented to the emergency department by EMS with the complaint of shortness of breath and productive cough for the past three days. Associated symptoms include subjective fevers and chills, nasal congestion, generalized weakness, nausea, vomiting, and diarrhea. She states that her symptoms have gradually progressed and that her provider at [facility] sent her to the emergency department. She reports hearing voices but states this is chronic, unchanged and the voices are praying for her and telling her to rest. She reports good compliance with her medications and follow up since being discharged in October and otherwise states that she has been doing well. Additionally she reports dysuria, increased urinary frequency, diarrhea and abdominal tenderness. She is a current everyday tobacco smoker and reports smoking one pack per day. She denies alcohol use or drug use. In the ED, vitals: 36.5, BP 147/72, HR 121, RR 30, SpO2 93% on 8L Bipap. ABG: pH 7.384, pCO2 37.1, pO2 67.5, HCO3 21.6 on BiPap with FiO2 35%, PEEP 6, RR 38. Labs significant for a mild leukocytosis (wbc 12.3), negative troponin, elevated proBNP 830.7, procalcitonin 0.55, glucose 212, lactic acid 1.3, UA consistent with infection. EKG showed sinus tachycardia with a rate of 116, no acute ST or T wave changes. Chest xray with bilateral radiodensity of lung parenchyma but no focal consolidation. CT ANGIO negative for pulmonary embolism and revealed multifocal consolidation bilaterally compatible with diffuse pneumonia and trace right-sided pleural effusion. She was given a dose of azithromycin, ceftriaxone, zosyn, and levofloxacin as well as 125mg IV methylprednisolone. Hospital Course 60-year-old lady with a history of hypertension, uncontrolled diabetes mellitus , prior CVA, and schizo-affective disorder with recent hospitalization in October of this year who presented to the emergency department by EMS with the complaint of shortness of breath and productive cough for the past three days. Admitted for acute respiratory distress and sepsis secondary to bilateral pneumonia and UTI. 1. Sepsis, acute. Present on admission. resolved -Meets criteria with: leukocytosis, tachycardia, tachypnea and suspected pulmonary as well as urinary source of infection. -CT angio negative for pulmonary embolism but revealed multifocal consolidation bilaterally. -Placed on BiPap for increasing respiratory distress and hypoxia. 2. Acute respiratory distress. Present on admission. resolved -secondary to pneumonia with concern for possible exacerbation of COPD. No known diagnosis of COPD but patient is pack per day smoker with increased sputum and chronic cough. -Continue BiPap, maintain O2 sats of 88-92%. -Duonebs q4h while awake 3. Bilateral pneumonia, acute. Present on admission. improving -Recent admission in October, possibly health-care acquired. -Chest xray and CT angio with evidence consistent with diffuse pneumonia. -cultures negative except for positive nasal MRSA -Day 8 of IV Vanco, Levaquin, Zosyn. -Repeat cxr 12-31-16 improved but still with infiltrate, recommend follow up cxr until clear by primary care provide, -antibiotics stopped today 4. Urinary tract infection, acute. Present on admission. resolved -UA consistent with infection -Antibiotics as above. 5. Reported diarrhea, acute on chronic. Present on admission. resolved -Check stool PCR and if negative will treat with Lomotil prn 6. Diabetes mellitus, chronic, poorly controlled. Present on admission. stable. -HbA1c 15.1 on 11/19/16. (detemir 80 q am home, + metformin + trulicity + invega) -resume home meds at dc 7. Hypertension, chronic. Present on admission. Presumed stable. -Continue home dose Propranolol 8. Hyperlipidemia, chronic. Present on admission. Presumed stable. -Continue home dose fenofibrate and atorvastatin, daily aspirin 9. Schizoaffective disorder, chronic. Present on admission. Presumed stable. -Psychiatric admission in October of this year with auditory hallucinations. Patient reports good follow up since discharge and continues to take her medications. -She does have tardive dyskinesia, likely related to medications. -Continue home divalproex ER, 1,000mg in the evening and 500mg in the morning. 10. History of breast cancer s/p bilateral mastectomy. Present on admission. Presumed stable. -Continue home Arimidex PRN: Acetaminophen-fever/headache/mild/moderate pain Antiemetics, as needed Bowel regimen, as needed. Disposition: Patient admitted under inpatient status with expected length of stay > 2 midnights for severity of present symptoms, complexities of treatment plan and risk for adverse event. PCP is Dr. Neely PLAN IS TO DISCHARGE TO HOME Exam Vital Signs (Last) Date Time Temp Pulse Resp B/P Pulse Ox O2 Delivery O2 Flow Rate FiO2 01/01/17 05:57 37.3 96 20 113/64 94 Room Air 12/31/16 21:14 1.00 12/26/16 02:46 35 Test 12/25/16 12:30 12/25/16 15:06 12/25/16 19:02 12/26/16 03:18 Troponin T < 0.010ug/L (0.0-0.011) Pro-B-Type Natriuretic Peptide 830.7pg/mL (0-287) Urine Color Dark yellow (YELLOW) Urine Appearance Hazy (CLEAR,HAZY) Urine pH 5.5 (5.0-8.0) Urine Specific [place] 1.015 (1.003-1.035) Urine Protein 30mg/dL (NEG,TRACE) Urine Glucose (UA) 100mg/dL (NEGATIVE) Urine Ketones Negativemg/dL (NEGATIVE) Urine Occult Blood Trace (NEGATIVE) Urine Nitrite Positive (NEGATIVE) Urine Bilirubin Negative (NEGATIVE) Urine Urobilinogen 2.0mg/dL (NORMAL) Urine Leukocyte Esterase Trace (NEGATIVE) Urine RBC 0-2/hpf (0-2) Urine WBC 11-50/hpf (0-5) Urine Epithelial Cells Occasional/hpf (NONE-MOD) Urine Crystals None seen (NONE SEEN) Urine Bacteria Many/hpf (NONE-FEW) Urine Hyaline Casts Occasional/lpf (NONE) Urine Granular Casts Occasional (NONE SEEN) Urine Waxy Casts None seen (NONE SEEN) Urine Red Blood Cell Casts None seen (NONE SEEN) Urine White Blood Cell Casts None seen (NONE SEEN) Urine Mucus Present (None Seen) Urine Trichomonas None seen (NONE SEEN) Urine Yeast None (NONE SEEN) Urinalysis Comment None Urine Culture Reflexed Indicated Urine Legionella pneumophilia Ag Negative (Negative) Lactic Acid Level 1.0mmol/L (0.4-2.0) Test 12/28/16 05:10 12/29/16 05:30 12/30/16 09:05 12/31/16 05:10 Phosphorus Level 2.8mg/dL (2.5-4.9) Magnesium Level 1.8mg/dL (1.6-2.6) Total Bilirubin 0.3mg/dL (0.0-1.2) Aspartate Amino Transf (AST/SGOT) 37U/L (0-50) Alanine Aminotransferase (ALT/SGPT) 70U/L (0-32) Alkaline Phosphatase 132U/L (25-165) Total Protein 5.2g/dL (6.4-8.4) Albumin 2.6g/dL (3.4-5.0) White Blood Count 8.9th/mm3 (3.8-10.1) Red Blood Count 3.88mil/mm3 (3.90-5.20) Hemoglobin 10.7g/dL (12.0-15.6) Hematocrit 33.6% (35.0-46.0) Mean Corpuscular Volume 86.6fL (81-100) Mean Corpuscular Hemoglobin 27.6pg (27.0-35.0) Mean Corpuscular Hemoglobin Concent 31.8% (32.0-37.0) Red Cell Distribution Width 14.7% (12.3-15.4) Platelet Count 300bil/L (150-400) Neutrophils (%) (Auto) 68.6% (40-74) Lymphocytes (%) (Auto) 17.5% (14-46) Monocytes (%) (Auto) 7.5% (4-12) Eosinophils (%) (Auto) 1.9% (0-5) Basophils (%) (Auto) 0.6% (0-3) Hemoglobin A1c 10.6% (4.8-5.6) Vancomycin Level Trough 15.6mcg/mL Sodium Level 145mEq/L (134-144) Potassium Level 3.9mEq/L (3.5-5.2) Chloride Level 107mEq/L (97-108) Carbon Dioxide Level 24mmol/L (18-29) Blood Urea Nitrogen 14mg/dL (8-27) Creatinine 0.53mg/dL (0.57-1.00) Estimat Glomerular Filtration Rate 167mL/min (>59) Glucose Level 161mg/dL (60-99) Calcium Level 8.6mg/dL (8.5-10.1) Procalcitonin 0.17ng/mL (0.00-0.08) Discharge Medications Discharge Medications Anastrozole (Arimidex) 1 Mg Tablet 1 MG PO DAILY Prescribed by: MAIDA ARCOS MD Aspirin (Aspirin) 81 Mg Tablet 81 MG PO DAILY (Reported) Atorvastatin Calcium (Atorvastatin Calcium) 20 Mg Tablet 20 MG PO DAILY ( Reported) Cholecalciferol (Vitamin D3) (Vitamin D3) 50,000 Unit Capsule 50,000 UNIT PO WEEKLY (Reported) pt takes on tuesdays Divalproex ER (Divalproex ER) 500 Mg Tab.er.24h 1,000 MG PO HS Prescribed by: MAIDA ARCOS MD Divalproex ER (Divalproex ER) 500 Mg Tab.er.24h 500 MG PO QAM (Reported) Dulaglutide (Trulicity) 0.75 Mg/0.5 Ml Pen.injctr 0.75 MG SQ WEEKLY (Reported) on wednesdays Fenofibrate Nanocrystallized (Fenofibrate) 145 Mg Tablet 145 MG PO DAILY ( Reported) Fluticasone Propionate (Fluticasone Propionate Nasal) 16 Gm [place].susp 2 SPRAYS NASAL DAILY (Reported) Insulin Detemir (Levemir U100 Insulin Vial) 100 Unit/1 Ml Vial 80 UNIT SUBQ QAM (Reported) Metformin (Glucophage) 500 Mg Tablet 1,000 MG PO BIDWM Prescribed by: MAIDA ARCOS MD Paliperidone Palmitate Inj (Invega Sustenna) 156 Mg/1 Ml Syringe 156 MG IM monthly (Reported) last given on 10/22/16 next dose due 11/19/16 Propranolol HCl (Propranolol HCl) 10 Mg Tablet 10 MG PO BID (Reported) Followup Plan Follow-up plan please followup with your primary care provider one week Discharge Diet: Heart Healthy, Diabetic Discharge Activity: Limited until seen by PCP Follow-up with PCP in: 1 week Attending Statement 36 min time spent so far today discharging this patient. copies to: Esequiel Neely D Geoffrey MD January 01, 2017 08:19
[2017-01-01 09:03] VITALS: PULSE 79; RESP 20; O2SAT 94
[2017-01-01] MEDS: Albuterol-Ipratropium 3 mL Inhalation Solution NEB SCH (09:03)
[2017-01-01 09:39] VITALS: BP 98/62; PULSE 90; O2SAT 92
[2017-01-01] MEDS ORDERED: Vancomycin Serum Trough XX ONE (13:30)
== END 2017-01-01 12:39 | disposition home or self-care (01) | DRG 871 ==
LOC: SED 12:13 → EDBD 12:13 → PCC 15:26 → MPC 12-27 12:38
PROVIDERS: ADMIT Internal Medicine; ATTEND Internal Medicine
PROC: 5A09357 Assistance with Respiratory Ventilation, Less than 24 Consecutive Hours, Continuous Positive Airway Pressure (ICD-10-PCS; principal; 2016-12-25)
PROC: 4A033R1 Measurement of Arterial Saturation, Peripheral, Percutaneous Approach (ICD-10-PCS; 2016-12-25)
DX: A41.9 Sepsis, unspecified organism (principal); J18.9 Pneumonia, unspecified organism; J96.01 Acute respiratory failure with hypoxia; N39.0 Urinary tract infection, site not specified; J44.1 Chronic obstructive pulmonary disease with (acute) exacerbation; F17.210 Nicotine dependence, cigarettes, uncomplicated; R19.7 Diarrhea, unspecified; E11.65 Type 2 diabetes mellitus with hyperglycemia; Z79.4 Long term (current) use of insulin; Z79.84 Long term (current) use of oral hypoglycemic drugs; I10 Essential (primary) hypertension; E78.5 Hyperlipidemia, unspecified; F25.0 Schizoaffective disorder, bipolar type; Z85.3 Personal history of malignant neoplasm of breast; Z90.13 Acquired absence of bilateral breasts and nipples; Z86.73 Personal history of transient ischemic attack (TIA), and cerebral infarction without residual deficits; Y95 Nosocomial condition